=== PATIENT | male | born 1955 | race Caucasian/White ===

== ENCOUNTER 2022-06-25 08:16 | Outpatient (REF) | payer OTHER, SELFPAY ==
[2022-06-25 11:06] LABS: MANUAL DIFF FLAG NO
[2022-06-25 11:21] LABS: Basophils Absolute Auto 0.1 X10*3/uL (0.0-0.2); Basophils Percent Auto 0.8 % (0-2); Eosinophils Absolute Auto 0.1 X10*3/uL (0.0-0.4); Eosinophils Percent Auto 1.6 % (0-4); Hematocrit 44.3 % (42.0-52.0); Hemoglobin 14.1 g/dl (14.0-18.0); Imm Gran Abs Auto 0.02 X10*3/uL (0.00-0.03); Imm Gran Pct Auto 0.3 % (0.0-0.4); Lymphocytes Absolute Auto 1.2 X10*3/uL (1.2-4.9); Lymphocytes Percent Auto 19.5 % (20-40); Mean Corpuscular HGB Conc 31.8 g/dl (31.0-36.0); Mean Corpuscular Volume 78.4 fL (80.0-98.0); Mean Platelet Volume 10.2 fL (9.4-12.4); Monocytes Absolute Auto 0.4 X10*3/uL (0.1-1.2); Monocytes Percent Auto 6.8 % (2-11); Neutrophils Absolute Auto 4.4 x10*3/uL (2.0-8.3); Platelet Count 129 X10*3/uL (160-400); Red Blood Count 5.65 X10*6/uL (4.60-5.80); Red Cell Distribution Width 18.6 % (11.0-16.0); White Blood Count 6.2 X10*3/uL (4.8-10.8)
[2022-06-25 11:29] LABS: Estimated Average Glucose 269 mg/dL
[2022-06-25 11:46] LABS: Alanine Aminotransferase 31 U/L (0-40); Albumin Level 4.4 g/dL (3.5-5.0); Alkaline Phosphatase 96 U/L (39-117); Anion Gap 14 (12-20); Aspartate Amino Transferase 24 U/L (5-37); Bilirubin Total 0.4 mg/dL (0.0-1.0); Blood Urea Nitrogen 22 mg/dL (9-16); Calcium 9.5 mg/dL (8.4-10.2); Carbon Dioxide 25 mmol/L (22-29); Chloride 107 mmol/L (96-108); Cholesterol 137 mg/dL; Estimated Glomerular Filt Rate 44; Glucose Fasting 276 mg/dL (60-99); HDL Cholesterol 29 mg/dL; Iron 48 mcg/dL (45-160); LDL Cholesterol Calculated 65 mg/dl; Percent Iron Saturation 14 % (15-50); Potassium 4.8 mmol/L (3.3-5.1); Sodium 141 mmol/L (135-145); Total Iron Binding Capacity 347 mcg/dL (228-428); Total Protein 7.8 g/dL (6.5-8.0); Triglycerides 218 mg/dL; Unsaturated Iron Binding 299 ug/dL
[2022-06-25 12:09] LABS: Creatinine Urine 88.11 mg/dL
[2022-06-25 12:20] LABS: Microalbum/Creatinine Ratio Ur 1274.5 ug/mg cr
[2022-06-25 12:43] LABS: Folate 16.8 ng/mL (> or = 4.0); PSA,Total (Free>4and<10) 0.58 ng/mL (0.00-4.00); Vitamin B12 906 pg/mL (200-900)
== END 2022-06-25 08:17 | disposition home or self-care (01) ==
LOC: HO.HMGCLDS 08:16
PROVIDERS: PCP Internal Medicine; Visit Provider Internal Medicine
DX: R01.1 Cardiac murmur, unspecified (principal); I10 Essential (primary) hypertension; E78.5 Hyperlipidemia, unspecified; E11.9 Type 2 diabetes mellitus without complications; Z12.5 Encounter for screening for malignant neoplasm of prostate
CPT/HCPCS: 36415; 80053; 80061; 82043; 82607; 82746; 83036; 83540; 84153; 85025

== ENCOUNTER 2022-08-31 09:52 | Outpatient (REF) | payer OTHER, SELFPAY ==
--- NOTE | ~2022-08-31 | US_ITS ---
EXAMINATION: US RETROPERITONEAL LIMITED (RENAL ONLY) CLINICAL INFORMATION: Chronic kidney disease, stage 3 unspecified. COMPARISON: None available. TECHNIQUE: Real-time imaging of the kidneys. FINDINGS: RIGHT KIDNEY: 11.6 x 5.9 x 5.8 cm (SAG x AP x TRV). The kidney is normal in size, contour, and echogenicity. Renal cortical thickness is normal. No calculi or focal parenchymal lesions. No hydronephrosis. LEFT KIDNEY: 12.2 x 5.9 x 6.6 cm (SAG x AP x TRV). The kidney is normal in size, contour, and echogenicity. Renal cortical thickness is normal. No calculi or focal parenchymal lesions. No hydronephrosis. INCIDENTAL FINDING: The hepatic contour is mildly scalloped. Within the right hepatic lobe, a 5.5 x 4 mm hypoechoic, circumscribed mass is seen, without associated color Doppler flow. There is splenomegaly, with a longitudinal span of 16.3 cm. Splenic echotexture is somewhat heterogeneous. Calcified splenic granulomas are questioned. US/US renal BI IMPRESSION: 1. Unremarkable ultrasound appearance of the bilateral kidneys. 2. There is a scalloped contour of the liver, which can be associated with cirrhosis. This requires clinical correlation. 3. A 5 mm hyperechoic, circumscribed mass is seen within the right hepatic lobe, with ultrasound appearance characteristic of benign hemangioma. This is of doubtful clinical significance. If of clinical concern (i.e., history of hepatocellular disease or known malignancy), this can be further evaluated with dynamic CT or MRI. 4. There is splenomegaly.
== END 2022-08-31 09:53 | disposition home or self-care (01) ==
LOC: HO.HMGCX 09:52
PROVIDERS: PCP Internal Medicine; Visit Provider Internal Medicine
DX: N18.30 Chronic kidney disease, stage 3 unspecified (principal)
CPT/HCPCS: 76775

== ENCOUNTER 2022-11-20 10:45 | Outpatient (AMB) | payer OTHER, SELFPAY ==
--- NOTE | 2022-11-20 10:49 | MHC.OFFVIS ---
Intake Vital Signs 11/20/22 10:51 Height 5 ft 11 in Weight 204 lb 12.951 oz BMI 28.6 BP 132/68 Blood Pressure Location Rt brachial Position Sitting Pulse 86 Pulse Source Pulse Oximeter Intake Visit Reasons: Dm2 Intake Note: New patient present today for Diabetes Mellitus. Previously followed by PCP. Last Diabetic Eye exam: last year Last Podiatry Visit: Does not see a Milk Collector Random Glucose: 412 mg/dl 10:57 AM, 416 mg 12:09 PM, 357mg/dL 12:45pm HgA1C: 10.7% Foreign Exchange Student Coordinator Required: No Accompanied by: Self / Same As Patient Allergies No Known Allergies Allergy (Verified 11/20/22 10:52) Medication List - Last Reconciled 11/20/22 by Shukri Cunha MD amlodipine 10 mg PO DAILY blood sugar diagnostic ([employer] Verio test strips) Test blood sugar twice a day empagliflozin (Jardiance) 25 mg PO DAILY folic acid 1 mg PO DAILY glipizide 10 mg (2 x 5 mg) PO BID lisinopril 40 mg PO DAILY simvastatin 20 mg PO BEDTIME HPI HPI Comments History of Present Illness Details 66 YO M who is seen in consultation for T2DM at the request of PCP. Initially diagnosed with T2DM in 5 yrs . Never saw endo Was initially started on treatment with metformin .Couldn't tolerate because of nausea . Took Rybellus but couldn't afford Current regimen Jardiance 25 mg QD Glipizide 10 md QD. Unfortunately, patient did not bring glucometer or log book to visit Most recent A1C 10.7 , [down] from prior [] on []. Family history of T2DM in mother and siblings have Type 2 DM . Has eyes checked yearly, last eye exam last yr . needs to make appt , denies retinopathy. Denies neuropathy, in past sees podiatry. Has nephropathy, on MARTHA/ARB. UAC [] as measured on []. Has HLD, on statin. Denies CAD. Not Had diabetes education. PFSH Surgical History History of surgery History of surgery on arm Family History Sister Lymphoma Father Heart attack, Onset Age: 62 Mother DM2 (diabetes mellitus, type 2) Social History Household Members Other:: , 5 children, 11 greatchildren, retired Housing: House Patient Tobacco Use Status: Former Tobacco user Quit Date: quit 5-7 years ago e-Cigarette/Vaping Use: Never Used Second Hand Smoke Exposure: No service: Yes Current occupational status: retired Cognitive needs: No Hearing needs: No Vision needs: No Physical Exam Vital Signs: Last Vital Signs Pulse 86 11/20/22 10:51 BP 132/68 11/20/22 10:51 BMI result Body Mass Index 28.6 Absence of Cushingoid features. Absence of acromegalic features. Neck exam reveals nl size thyroid about 15 gms. No thyroid nodules palpable. No carotid bruits present. Lungs CTA. Heart S1 S2, Reg R/R. No M/R/ G. Skin exam reveals absence of vitiligo or acanthosis nigricans. Abdominal exam reveals Soft NT/ND with NA BS. No organomegaly present. Neck Other: . Extrem Other: Visual exam of foot performed. No ulcerations or open lesions. No onchomycosis, no callouses.Pulses 2 + distally Sensation intact to monofilament exam. Vibratory sensation sensed is decreased with 128 Hz tuning fork Office Meds Humalog U-100 Insulin Performing Provider: Shukri Cunha MD Administered by: Rigo Cerna RN on 11/20/22 11:08 Dose Route Admin Location Lot Number Expiration Date [facility] [employer] Registered Nurse 10 unit subcut [id number] 03/12/24 8332-2849-08 [employer] Comments: patient consented for insulin administration. 10 units of humalog given per Dr. Cunha's order due to blood sugar reading of 412. Patient tolerated well and was given water. Results AMB Hemoglobin A1c AMB Hemoglobin A1c 10.7 % Last Edit by NANCY Farooq on 11/20/22 11:06 Results Reviewed Results Reviewed: 11/20/22 10:57 Glucose, Whole Blood Routine Laboratory Last Values Glucose (Clinic) 412 mg/dL (60-115) H* 11/20/22 10:57 Hgb A1c (Clinic) 10.7 % (4.0-6.0) H 11/20/22 11:03 Assessment & Plan Assessment & Plan (1) DM type 2 (diabetes mellitus, type 2): Comment: poorly controlled, pt refuses Metformin, Trulicity and Insulin Code(s): E11.9 - Type 2 diabetes mellitus without complications Plan: This 66-year-old white male with a history of type 2 diabetes being treated with Jardiance and glipizide with poor glycemic control and known microvascular complications namely CKD stage 3. The plan is to have the patient check his point cares pre and post meals and bring the glucometer with him to follow-up visit. Would ideally like to prescribe a Sensor but patient is returns will not cover without initiation of insulin Will schedule appointment with extension educator and director retail brand development. Will talk to patient about going on basal insulin along with G LP 1 agonist. However, patient is not willing at this point to accept any the previous medications but will think about it. Went over correlation of poor glycemic control to development and progression of complications His point care today was >400 and he received 10 units of Humalog insulin Orders: Orders AMB Insulin Lispro Injection Practice Supplied Today E11.9 - Type 2 diabetes mellitus without complications AMB Hemoglobin A1c Today E11.9 - Type 2 diabetes mellitus without complications Referrals Diabetes Education Referral E11.9 - Type 2 diabetes mellitus without complications Nutrition/Dietitian Referral E11.9 - Type 2 diabetes mellitus without complications Coding Level of Care Code New Pt Level 5 (15923) Diagnoses DM type 2 (diabetes mellitus, type 2) E11.9 Time Spent (min) 60 Comment A total of 60 minutes was spent reviewing chart, seeing patient and dictating
[2022-11-20 10:51] VITALS: BP 132/68; PULSE 86; BMI 28.6
[2022-11-20 11:01] LABS: Glucose, Whole Blood 412 mg/dL (60-115)
[2022-11-23 09:03] LABS: Glucose, Whole Blood 416 mg/dL (60-115)
[2022-11-23 09:07] LABS: Glucose, Whole Blood 357 mg/dL (60-115)
== END 2022-11-20 11:44 | disposition home or self-care (01) ==
PROVIDERS: PCP Internal Medicine; Visit Provider Internal Medicine Endocrinology, Diabetes & Metabolism
DX: E11.9 Type 2 diabetes mellitus without complications (principal)
CPT/HCPCS: 99205

== ENCOUNTER → 2022-11-20 10:45 | Outpatient (BNVA) | payer OTHER, SELFPAY | PROVIDERS: Visit Provider Internal Medicine Endocrinology, Diabetes & Metabolism | DX: E11.21 Type 2 diabetes mellitus with diabetic nephropathy (principal); E11.22 Type 2 diabetes mellitus with diabetic chronic kidney disease; N18.30 Chronic kidney disease, stage 3 unspecified; E78.5 Hyperlipidemia, unspecified; Z83.3 Family history of diabetes mellitus; Z79.84 Long term (current) use of oral hypoglycemic drugs; Z79.85 Long-term (current) use of injectable non-insulin antidiabetic drugs; Z79.899 Other long term (current) drug therapy | CPT/HCPCS: 82947; 83036; 96372; 99202; J1815 ==

== ENCOUNTER 2023-02-12 12:32 | Outpatient (AMB) | payer OTHER, SELFPAY ==
[2023-02-12 12:41] VITALS: BP 120/78; PULSE 84; O2SAT 97; BMI 28.4
--- NOTE | 2023-02-12 12:41 | MHC.PC.OV ---
Vital Signs 02/12/23 12:41 Height 5 ft 11 in Weight 204 lb BMI 28.4 BP 120/78 Blood Pressure Location Lt brachial Position Sitting Pulse 84 Pulse Source Pulse Oximeter Pulse Oximetry (%) 97 Oxygen Delivery Method Room Air Intake Visit Reasons: 4 month follow up DM Intake Note: Pt is here today for 4 months follow up visit on DM. Allergies No Known Allergies Allergy (Verified 02/12/23 12:44) Medication List - Last Reconciled 02/12/23 by Lyn Ness MD amlodipine 10 mg PO DAILY blood sugar diagnostic ([employer] Verio test strips) Test blood sugar twice a day empagliflozin (Jardiance) 25 mg PO DAILY folic acid 1 mg PO DAILY glipizide 10 mg (2 x 5 mg) PO BID lisinopril 40 mg PO DAILY simvastatin 20 mg PO BEDTIME Tobacco use date assessed: 02/12/23 Dental Screening Dental Screen Date: 02/12/23 Did you have a dental visit in the last 12 months?: No Did you have a dental problem in the last 6 months where you did not have access to dental care?: No Was dental information given to patient?: Patient declined HPI 4 month follow up DM HPI Details Patient presents for the follow-up of hypertension hyperlipidemia type 2 diabetes. He reports fluctuating fasting blood glucose between 130 to over 200. Patient has not been compliant with ADA diet. Patient with pst specialist who recommended insulin but patient declined. [facility] Surgical History History of surgery on arm History of surgery Family History Sister Lymphoma Father Heart attack, Onset Age: 62 Mother DM2 (diabetes mellitus, type 2) Social History Household Members Other:: , 5 children, 11 greatchildren, retired Housing: House Patient Tobacco Use Status: Former Tobacco user Quit Date: quit 5-7 years ago e-Cigarette/Vaping Use: Never Used Second Hand Smoke Exposure: No service: Yes Current occupational status: retired Cognitive needs: No Hearing needs: No Vision needs: No Questionnaire Thrive Questionnaire Date Thrive assessed: 06/25/22 JEREMIAH-7 AMB Questionnaire JEREMIAH-7 Date JEREMIAH - 7 assessed: 06/25/22 Source: Developed by Drs. Shukri Burnett, Nayely Sdaler, Nikhil Vivas and colleagues, with an educational luis from [employer]. Review of Systems Const All systems reviewed & are unremarkable except as noted in HPI and below Reports no additional complaints Eyes Reports no additional complaints ENT Reports no additional complaints Card Reports no additional complaints Resp Reports no additional complaints GI Reports no additional complaints Reports no additional complaints Physical exam (Primary Care) Vital Signs: Last Vital Signs Pulse 84 02/12/23 12:41 BP 140/78 H 02/12/23 12:41 Pulse Ox 97 02/12/23 12:41 Oxygen Delivery Method Room Air 02/12/23 12:41 BMI result Body Mass Index 28.4 Tobacco/Smoking Status: Tobacco use Status Tobacco use date assessed 02/12/23 02/12/23 12:45 Patient Tobacco Use Status Former Tobacco user 02/12/23 12:42 e-Cigarette/Vaping Use Never Used 02/12/23 12:42 Thrive Assessment: Date of Thrive Assessment Date Thrive assessed 06/25/22 02/12/23 12:42 Const General: no acute distress HENMT Head: Yes normal to inspection Ears: hearing grossly normal bilaterally Eyes General: appearance normal, both eyes and all related structures Neck Neck: Yes supple Resp Effort & Inspection: normal respiratory effort Auscultation: clear to auscultation bilaterally Cardio Rhythm: regular rhythm Heart sounds: S1 normal heart sound present and S2 normal heart sound present GI Inspection: Yes normal to inspection Palpation (GI): Soft to palpation Auscultation: normal bowel sounds Extrem Other: Diabetic foot exam: skin is intact monofilament and vibration sensation intact bilaterally General: Yes no clubbing, cyanosis or edema Assessment and Plan Assessment & Plan (1) Microalbuminuria: Code(s): R80.9 - Proteinuria, unspecified Plan: Continue lisinopril and Jardiance return for fasting blood work and urine microalbumin (2) CKD (chronic kidney disease) stage 3, GFR 30-59 ml/min: Code(s): N18.30 - Chronic kidney disease, stage 3 unspecified Plan: Avoid NSAIDs monitor renal function continue Jardiance (3) HTN (hypertension): Code(s): I10 - Essential (primary) hypertension Plan: Continue current medications (4) Hyperlipidemia: Code(s): E78.5 - Hyperlipidemia, unspecified Plan: Continue statin (5) DM type 2 (diabetes mellitus, type 2): Comment: poorly controlled, pt refuses Metformin, Trulicity and Insulin Code(s): E11.9 - Type 2 diabetes mellitus without complications Plan: ADA diet regular physical activity discussed with the patient patient he will return for fasting labs next week including A1c (6) Hx of colonoscopy: Comment: at [facility] 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 Panel Today E11.9 - Type 2 diabetes mellitus without complications, E78.5 - Hyperlipidemia, unspecified, I10 - Essential (primary) hypertension, N18.30 - Chronic kidney disease, stage 3 unspecified, R80.9 - Proteinuria, unspecified Complete Blood Count Auto Diff Today E11.9 - Type 2 diabetes mellitus without complications, E78.5 - Hyperlipidemia, unspecified, I10 - Essential (primary) hypertension, N18.30 - Chronic kidney disease, stage 3 unspecified, R80.9 - Proteinuria, unspecified Lipid Panel Today E78.5 - Hyperlipidemia, unspecified Medications: New ammonium lactate 12% 1 appl topical DAILY PRN 385 grams 3RF dry skin Coding Level of Care Code Est Pt Level 4 (36617) Diagnoses Microalbuminuria R80.9 CKD (chronic kidney disease) stage 3, GFR 30-59 ml/min N18.30 HTN (hypertension) I10 Hyperlipidemia E78.5 DM type 2 (diabetes mellitus, type 2) E11.9 Hx of colonoscopy Z98.890 Alcoholic cirrhosis of liver without ascites K70.30
== END 2023-02-12 13:33 | disposition home or self-care (01) ==
PROVIDERS: PCP Internal Medicine; Visit Provider Internal Medicine
DX: R80.9 Proteinuria, unspecified (principal); E11.22 Type 2 diabetes mellitus with diabetic chronic kidney disease; N18.30 Chronic kidney disease, stage 3 unspecified; K70.30 Alcoholic cirrhosis of liver without ascites; I10 Essential (primary) hypertension; E78.5 Hyperlipidemia, unspecified; Z98.890 Other specified postprocedural states
CPT/HCPCS: 99214

== ENCOUNTER 2023-10-04 09:28 | Outpatient (REF) | payer OTHER, SELFPAY ==
[2023-10-04 12:09] LABS: MANUAL DIFF FLAG NO
[2023-10-04 12:11] LABS: Basophils Percent Auto 0.7 % (0-2); Eosinophils Absolute Auto 0.1 X10*3/uL (0.0-0.4); Eosinophils Percent Auto 2.7 % (0-4); Hematocrit 44.2 % (42.0-52.0); Hemoglobin 15.4 g/dl (14.0-18.0); Imm Gran Abs Auto 0.02 X10*3/uL (0.00-0.03); Imm Gran Pct Auto 0.4 % (0.0-0.4); Lymphocytes Percent Auto 22.2 % (20-40); Mean Corpuscular HGB Conc 34.8 g/dl (31.0-36.0); Mean Corpuscular Hemoglobin 31.6 pg (27.0-33.0); Mean Corpuscular Volume 90.6 fL (80.0-98.0); Mean Platelet Volume 9.8 fL (9.4-12.4); Monocytes Absolute Auto 0.4 X10*3/uL (0.1-1.2); Monocytes Percent Auto 8.9 % (2-11); Neutrophils Absolute Auto 2.9 x10*3/uL (2.0-8.3); Neutrophils Percent Auto 65.1 % (45-73); Platelet Count 102 X10*3/uL (160-400); Red Blood Count 4.88 X10*6/uL (4.60-5.80); Red Cell Distribution Width 13.9 % (11.0-16.0); White Blood Count 4.5 X10*3/uL (4.8-10.8)
[2023-10-04 12:28] LABS: Estimated Average Glucose 163 mg/dL; Hemoglobin A1c % 7.3 % (<6.0)
[2023-10-04 12:47] LABS: Alanine Aminotransferase 52 U/L (0-40); Alkaline Phosphatase 96 U/L (39-117); Anion Gap 19 (12-20); Aspartate Amino Transferase 39 U/L (5-37); Bilirubin Total 0.5 mg/dL (0.0-1.0); Blood Urea Nitrogen 13 mg/dL (9-16); Calcium 8.9 mg/dL (8.4-10.2); Carbon Dioxide 22 mmol/L (22-29); Chloride 107 mmol/L (96-108); Cholesterol 170 mg/dL (<200); Estimated Glomerular Filt Rate 54; Glucose Fasting 191 mg/dL (60-99); HDL Cholesterol 38 mg/dL (>40); Sodium 143 mmol/L (135-145); Total Protein 7.6 g/dL (6.5-8.0); Triglycerides 467 mg/dL (<150)
[2023-10-04 13:26] LABS: Creatinine Urine 134.81 mg/dL; Microalbum/Creatinine Ratio Ur 1483.5 ug/mg cr (<30); Microalbumin Urine > 2000.0 mg/L
[2023-10-06 12:59] LABS: Alpha Fetoprotein 4.8 ng/mL (<6.1)
== END 2023-10-04 09:29 | disposition home or self-care (01) ==
LOC: HO.HMGCLDS 09:28
PROVIDERS: PCP Internal Medicine; Visit Provider Internal Medicine
DX: I12.9 Hypertensive chronic kidney disease with stage 1 through stage 4 chronic kidney disease, or unspecified chronic kidney disease (principal); E11.22 Type 2 diabetes mellitus with diabetic chronic kidney disease; N18.30 Chronic kidney disease, stage 3 unspecified
CPT/HCPCS: 36415; 80053; 80061; 82043; 82105; 82570; 83036; 85025

== ENCOUNTER 2023-10-07 13:59 | Outpatient (AMB) | payer OTHER, SELFPAY ==
[2023-10-07 14:12] VITALS: BP 136/88; PULSE 113; O2SAT 97; BMI 30.6
--- NOTE | 2023-10-07 14:12 | MHC.PC.OV ---
Vital Signs 10/07/23 14:12 Height 5 ft 11 in Weight 219 lb 4 oz BMI 30.6 BP 136/88 Blood Pressure Location Rt brachial Position Sitting Pulse 113 H Pulse Source Pulse Oximeter Pulse Oximetry (%) 97 Oxygen Delivery Method Room Air Intake Visit Reasons: DM followup Allergies No Known Allergies Allergy (Verified 10/07/23 14:12) Medication List - Last Reconciled 10/07/23 by Lyn Ness MD amlodipine 10 mg PO DAILY ammonium lactate 12% 1 appl topical DAILY PRN bisoprolol-hydrochlorothiazide 5-6.25 mg 1 tab PO DAILY blood sugar diagnostic ([employer] Verio test strips) Test blood sugar twice a day empagliflozin (Jardiance) 25 mg PO DAILY folic acid 1 mg PO DAILY glipizide 10 mg (2 x 5 mg) PO BID lisinopril 40 mg PO DAILY simvastatin 20 mg PO BEDTIME Tobacco use date assessed: 10/07/23 Fall risk assessment: No Falls in past year Last assessed Fall Risk: 10/07/23 Dental Screening Dental Screen Date: 10/07/23 Did you have a dental visit in the last 12 months?: No Did you have a dental problem in the last 6 months where you did not have access to dental care?: No Was dental information given to patient?: No HPI DM followup HPI Details Follow-up of hypertension hyperlipidemia type 2 diabetes. Patient has been monitoring his fasting blood glucose with a readings between 120-160. [facility] Surgical History History of surgery on arm History of surgery Family History Sister Lymphoma Father Heart attack, Onset Age: 62 Mother DM2 (diabetes mellitus, type 2) Social History Household Members Other:: , 5 children, 11 greatchildren, retired Housing: House Patient Tobacco Use Status: Former Tobacco user e-Cigarette/Vaping Use: Never Used Second Hand Smoke Exposure: No service: Yes Current occupational status: retired Cognitive needs: No Hearing needs: No Vision needs: No Questionnaire Thrive Questionnaire Date Thrive assessed: 06/25/22 AUDIT C Alcohol Use Questionnaire (AUDIT-C) 1. How often do you have a drink containing alcohol?: Never 3. How often do you have six or more drinks on one occasion?: Never Total Score: 0 Score Reviewed/Action Taken: Yes JEREMIAH-7 AMB Questionnaire JEREMIAH-7 Date JEREMIAH - 7 assessed: 06/25/22 Source: Developed by Drs. Shukri Burnett, Nayely Sadler, Nikhil Vivas and colleagues, with an educational luis from [employer]. Review of Systems Const All systems reviewed & are unremarkable except as noted in HPI and below Eyes Reports no additional complaints ENT Reports no additional complaints Card Reports no additional complaints Resp Reports no additional complaints GI Reports no additional complaints Reports no additional complaints Physical exam (Primary Care) Vital Signs: Last Vital Signs Pulse 113 H 10/07/23 14:12 Pulse Ox 97 10/07/23 14:12 Oxygen Delivery Method Room Air 10/07/23 14:12 BMI result Body Mass Index 30.6 Tobacco/Smoking Status: Tobacco use Status Tobacco use date assessed 10/07/23 10/07/23 14:13 Patient Tobacco Use Status Former Tobacco user 10/07/23 14:13 e-Cigarette/Vaping Use Never Used 10/07/23 14:13 Thrive Assessment: Date of Thrive Assessment Date Thrive assessed 06/25/22 10/07/23 14:13 Const General: no acute distress HENMT Head: Yes normal to inspection Throat: Yes posterior oropharynx normal Neck Neck: Yes no lymphadenopathy and Yes supple Resp Effort & Inspection: normal respiratory effort Auscultation: clear to auscultation bilaterally Cardio Rhythm: regular rhythm Heart sounds: S1 normal heart sound present and S2 normal heart sound present GI Inspection: Yes normal to inspection Palpation (GI): Soft to palpation Percussion: Yes normal to percussion Auscultation: normal bowel sounds Assessment and Plan Assessment & Plan (1) Alcoholic cirrhosis of liver without ascites: Comment: dxd 10/2021 at [facility], declined GI follow-up Code(s): K70.30 - Alcoholic cirrhosis of liver without ascites Plan: Patient denies alcohol intake for over a year (2) CKD (chronic kidney disease) stage 3, GFR 30-59 ml/min: Comment: With microalbuminuria Code(s): N18.30 - Chronic kidney disease, stage 3 unspecified Plan: Monitor renal function and avoid nephrotoxins (3) HTN (hypertension): Code(s): I10 - Essential (primary) hypertension Plan: Add bisoprolol 5/hydrochlorothiazide 6.25 to lisinopril and amlodipine. Patient will monitor blood pressure at home follow-up in 3 months with a fasting labs before (4) Hyperlipidemia: Code(s): E78.5 - Hyperlipidemia, unspecified Plan: Restart simvastatin (5) DM type 2 (diabetes mellitus, type 2): Comment: poorly controlled, pt refuses Metformin, Trulicity and Insulin Code(s): E11.9 - Type 2 diabetes mellitus without complications Plan: A1c is 7.4, continue Jardiance and glipizide ADA diet increase physical activity discussed with the patient. Orders: Orders Comprehensive [place]. Panel Fast 3 Months E11.9 - Type 2 diabetes mellitus without complications, E78.5 - Hyperlipidemia, unspecified, N18.30 - Chronic kidney disease, stage 3 unspecified, R80.9 - Proteinuria, unspecified Lipid Panel 3 Months E11.9 - Type 2 diabetes mellitus without complications, E78.5 - Hyperlipidemia, unspecified, N18.30 - Chronic kidney disease, stage 3 unspecified, R80.9 - Proteinuria, unspecified Complete Blood Count Auto Diff 3 Months E11.9 - Type 2 diabetes mellitus without complications, E78.5 - Hyperlipidemia, unspecified, N18.30 - Chronic kidney disease, stage 3 unspecified, R80.9 - Proteinuria, unspecified Microalbumin, Random (w Creat) 3 Months E11.9 - Type 2 diabetes mellitus without complications, E78.5 - Hyperlipidemia, unspecified, N18.30 - Chronic kidney disease, stage 3 unspecified, R80.9 - Proteinuria, unspecified Hemoglobin A1c 3 Months E11.9 - Type 2 diabetes mellitus without complications, E78.5 - Hyperlipidemia, unspecified, N18.30 - Chronic kidney disease, stage 3 unspecified, R80.9 - Proteinuria, unspecified Medications: New bisoprolol-hydrochlorothiazide 5-6.25 mg 1 tab PO DAILY 90 tabs 0RF Refilled empagliflozin (Jardiance) 25 mg PO DAILY 90 tabs 1RF glipizide 10 mg (2 x 5 mg) PO BID 360 tabs 1RF lisinopril 40 mg PO DAILY 90 tabs 1RF Coding Level of Care Code Est Pt Level 4 (73661) Diagnoses Alcoholic cirrhosis of liver without ascites K70.30 CKD (chronic kidney disease) stage 3, GFR 30-59 ml/min N18.30 HTN (hypertension) I10 Hyperlipidemia E78.5 DM type 2 (diabetes mellitus, type 2) E11.9
== END 2023-10-07 14:50 | disposition home or self-care (01) ==
LOC: HO.HMGC 13:59
PROVIDERS: PCP Internal Medicine; Visit Provider Internal Medicine
DX: E11.22 Type 2 diabetes mellitus with diabetic chronic kidney disease (principal); K70.30 Alcoholic cirrhosis of liver without ascites; N18.30 Chronic kidney disease, stage 3 unspecified; I12.9 Hypertensive chronic kidney disease with stage 1 through stage 4 chronic kidney disease, or unspecified chronic kidney disease; E78.5 Hyperlipidemia, unspecified
CPT/HCPCS: 99214

== ENCOUNTER → 2024-05-19 11:53 | Outpatient (BNVA) | payer MEDICARE, SELFPAY | PROVIDERS: PCP Internal Medicine; Visit Provider Internal Medicine | DX: Z00.00 Encounter for general adult medical examination without abnormal findings (principal); I12.9 Hypertensive chronic kidney disease with stage 1 through stage 4 chronic kidney disease, or unspecified chronic kidney disease; E11.22 Type 2 diabetes mellitus with diabetic chronic kidney disease; N18.30 Chronic kidney disease, stage 3 unspecified; R80.9 Proteinuria, unspecified; K70.30 Alcoholic cirrhosis of liver without ascites; Z98.890 Other specified postprocedural states | CPT/HCPCS: 96127; 99397 ==

== ENCOUNTER 2024-08-30 08:54 | Outpatient (AMB) | payer MEDICARE, SELFPAY ==
--- NOTE | 2024-08-30 09:05 | AM.OFFWIN_ITS ---
Intake Vital Signs 08/30/24 09:10 BP 120/78 Blood Pressure Location Lt brachial Position Sitting Pulse 77 Pulse Source Pulse Oximeter Pulse Oximetry (%) 93 Oxygen Delivery Method Room Air Intake Visit Reasons: EP Diff breathing, stomach feeling bloated Patient Tobacco Use Status: Former Tobacco user Allergies bisoprolol Adverse Reaction (Intermediate, Verified 08/30/24 09:07) Diarrhea Do you need a note to return to daycare/school/sports/work: No HPI HPI Comments History of Present Illness Details History of Present Illness - The patient is a 68-year-old male with a past medical history of type 2 diabetes, hypertension, hyperlipidemia, CKD stage 3, alcohol use disorder who was recently hospitalized at [facility] with melanotic stools and discharged after transfusion. He was scheduled for an outpatient EGD and colonoscopy and when he arrived for that appt, he was found to be in AFib with RVR with rates into the 120s, an CHARLENE, a type 2 NSTEMI, moderate MR, hyponatremia along with uncontrolled blood sugars. He was admitted back to [facility], placed on metoprolol, sugars and sodium were managed and he was discharged 3 days ago. He tells me he has not eaten anything since he was there because he feels like his abdomen is so full, he is very short of breath and his notes he is very pale. He tells me he was taking his metoprolol 25 mg t.i.d. along with his other medications. Notably, he is not on a blood thinner. He has had no further episodes of melanotic stools, denies any vomiting of blood, chest pain, dizziness, abdominal pain which radiates to his back, any arm pain or shoulder pain or neck pain or episodes of sweating. Patient was also prescribed a course of Augmentin which he states he is taking for a lesion on his right upper back. He is here with his today. Physical Exam General: Cooperative, tired appearing, comfortable, no acute distress and well developed Orientation: Patient oriented x3 Limitations: No limitations Head: Normal to inspection Ears: Hearing grossly normal bilaterally Nose: Normal External nose present Face and sinus: Normal facial exam Eyes: Conjunctival pallor, both eyes and all related structures otherwise normal appearing Neck: Normal visual inspection and Yes full ROM Respiratory: Normal respiratory effort and able to speak in complete sentences. Clear to auscultation bilaterally Cardiovascular: Irregular rate and rhythm. GI: obese, + fluid wave, + Iverson's, tense abdomen. Skin: pallor, upper right back has a raised 1cm lesion which is bloody and black Neuro: Patient oriented x3 Extremities: Normal to inspection [facility] Surgical History History of surgery on arm History of surgery Family History Sister Lymphoma Father Heart attack, Onset Age: 62 Mother DM2 (diabetes mellitus, type 2) Social History Household Members Other:: , 5 children, 11 greatchildren, retired Housing: House Patient Tobacco Use Status: Former Tobacco user e-Cigarette/Vaping Use: Never Used Second Hand Smoke Exposure: No service: Yes Current occupational status: retired Cognitive needs: No Hearing needs: No Vision needs: No Review of Systems Const All systems reviewed & are unremarkable except as noted in HPI and below Physical Exam Vital Signs: Last Vital Signs BP 120/78 08/30/24 09:10 Office Procedures EKG [id number], Complete Assessment & Plan Assessment & Plan (1) Atrial fibrillation with RVR: Code(s): I48.91 - Unspecified atrial fibrillation Plan: Pt with AFib with RVR with a rate of 116 on EKG, no acute changes noted however the computer picked up a ?nonspecific T-wave abnormality . Due to the presenting complaints and background, returning to the emergency room is recommended immediately for a comprehensive workup. This includes rate control measures for atrial fibrillation and potential fluid removal and blood products, if indicated. Reevaluation of hemoglobin levels and possible adjustment to metoprolol are planned, contingent upon findings. Also, pt not on blood thinner with Chads 2 score of 3. He does have a follow up with his PCP on 09/11/24. Called [facility] ED with expect 9:30AM. Patient refused ambulance, his will drive him. I also called the patient's daughter, Deyanira, to advise as per request by the patient and his . Patient was informed and verbally consented to the use of an ambient scribe for clinic note documentation during this visit. Coding Level of Care Code Est Pt Level 5 (65757) Diagnoses Atrial fibrillation with RVR I48.91 CPT Codes EKG - CPT: 88583-[id number], Complete ([id number])
[2024-08-30 09:10] VITALS: BP 120/78; PULSE 77; O2SAT 93
--- OUTSIDE RECORDS SUMMARY | 2024-08-30 10:10 | XMS_ITS | Patient Health Record ---
Author Organization [facility] Address [address] [place] [address] Care Team Providers Care Learning And Development Administrator Name Role Phone Little RANDOLPH, Radha Blackburn Primary Care Provider James Marcum Unavailable [phone] Allergies No Known Allergies Reason For Referral No Information Medications Medication SIG (Take, Route, Fr equency, Duration) Notes Start Date End Date Status Allopurinol Active Simvastatin Active Lisinopril Active glipiZIDE Active Furosemide Active amLODIPine Besylate Active Social History Tobacco Use: Social History Observation Description Date Details (start date - stop date) Never Smoker NA - NA Tobacco Use/Smoking Question Answer Notes Are you a: nonsmoker Additional Findings: Tobacco Non-User Ex-cigaret te smoker Problems Problem Type SNOMED Code ICD Code Onset Dates Problem Status W/U Status Risk Notes Problem Acquired hallux valgus (91114559) Hallux valgus (acquired), left foot (M20.12) Active confirmed Problem Acquired hallux rigidus (1839733) Hallux rigidus, right foot (M20.21) Active confirmed Plan Of Treatment Pending Test Test Name Order Date X ray : Foot, left 3V 08/21/2020 X ray : Foot, right 3V 08/21/2020 Insurance Providers Payer Name Payer Address Payer Phone Subscriber Number Group Number Insured Name Patient Relationship to Insured Coverage Start Date Coverage End Date [facility] [id number] [place] [phone] [id number] Trev Miranda Self - patient is the insured Medical (General) History Medical History History ICD Code Arthritis Diabetic Gout High blood pressure Numbness Surgical History Surgery Date(Month/Year) knee surgery 09/16/79 knee surgery 09/15/89
--- OUTSIDE RECORDS SUMMARY | 2024-08-30 10:10 | XMS_ITS | Clinical Summary ---
Author Organization [employer] [facility] Address [address] [place] [address] Care Team Providers Care Business Operations Director Name Role Phone Lyn Ness MD Primary Care Provider [phone] Surgical History Surgery Date Site/Laterality Comments KNEE SURGERY PROCEDURE: HISTORICAL KNEE SURGERY; COMMENT: lef in 1979 r in 1989 torn cartiladge Medical History Medical History Date Comments LFT elevation 06/21/2014 DX:LFT elevation Gout 06/21/2014 DX:Gout Mitral regurgitation 06/04/2014 DX:Mitral r egurgitation CKD (chronic kidney disease) stage 3, GFR 30-59 ml/min ([facility]/HCC V24, [facility]/HCC V28) 11/03/2018 DX:CKD (chronic kidney disea se) stage 3, GFR 30-59 ml/min ([facility]) Microalbuminuria 11/03/2018 DX:Microalbumin uria Type 2 diabetes mellitus wit h renal manifestations ([facility]/HCC V24, CMS/HCC V28) 02/01/2015 DX:Type 2 diabetes mellitus with renal manifestations (HCC) Alcohol abuse 10/01/2017 DX:Alcohol abuse Diastolic dysfunction with c hronic heart failure (CMS/HCC V24, CMS/HCC V28) 06/19/2016 DX:Diastolic dysfunction wit h chronic heart failure (HCC) Essential hypertension 06/24/2018 DX:Essent ial hypertension Hyperlipidemia 10/02/2014 DX:Hyperlipidemi a Osteoarthritis of knees, bilateral 06/04/2014 DX:Osteoarthritis of knees, bilateral DM (diabetes mellitus), type 2 with renal complications (CMS/HCC V24, CMS/HCC V28) 02/01/2015 DX:DM (diabetes mellitus), t ype 2 with renal complications ([facility]) GI bleed DX:GI bleed Symptomatic anemia DX:Symptomati c anemia Alcoholic cirrhosis of liver (CMS/HCC V24, CMS/HCC V28) DX:Alcoholic cirrhosis of li jaci (HCC) Portal hypertensive gastropa thy (CMS/HCC V24, CMS/HCC V28) 04/09/2022 DX:Portal hypertensive bg ropathy (HCC) COVID-19 virus infection DX:COVI D-19 virus infection Stage III chronic kidney dis ease (CMS/HCC V24, CMS/HCC V28) DX:Stage III chronic kidney disease (HCC) Weakness DX:Weakness Elevated LFTs DX:Elevated LFTs MRSA (methicillin resistant Staphylococcus aureus) DX:MRSA (methicillin resista nt Staphylococcus aureus); COMMENT: cellulitis Family History Medical History Relation Name Comments Heart attack Father dx with CAD in his 50s, Diabetes, Hypertension Other cancer Sister ? lymphoma Relation Name Status Comments Father (Age 62) of an [place] Mother (Age 80s) unknown c auses Sister Social History Tobacco Use Types Packs/Day Years Used Date Smoking Tobacco: Former Cigarettes Q uit: 04/12/2014 Smokeless Tobacco: Former Alcohol Use Standard Drinks/Week Comments Yes 0 (1 standard drink = 0.6 oz pur e alcohol) Sex and Gender Information Value Date Recorded Sex Assigned at Not on file Legal Sex Male 2:54 AM EST Gender Identity Not on file Sexual Orientation Not on file Obstetrics History Last Filed Vital Signs Vital Sign Reading Time Taken Comments Blood Pressure 166/80 05/14/2022 1:52 PM EST Pulse 93 04/15/2022 10:18 AM EST Temperature - - Respiratory Rate - - Oxygen Saturation - - Inhaled Oxygen Concentration - - Weight 93.4 kg (206 lb) 05/14/2022 1:52 PM EST Height 180.3 cm (5' 11 ) 05/14/2022 1:52 PM EST Body Mass Index 28.73 05/14/2022 1:52 PM EST Plan of Treatment Health Maintenance Due Date Last Done Comments Diabetes: Annual GFR (Glomer ular Filtration Rate) 1956 Diabetes: Annual Foot Exam 1966 Diabetes: Annual Retina Eye Exam 1966 Hepatitis A Vaccines (1 of 2 - Risk 2-dose series) 11/22/1975 Pneumococcal Vaccine: 50+ Ye ars (1 of 2 - PCV) 11/22/1975 Zoster Vaccines (1 of 2) 2006 Hepatitis B Vaccines (1 of 3 - Risk 3-dose series) 2016 RSV Immunization Adult Patie nts (1 - Risk 60-74 years 1-dose series) 2016 Abdominal Aortic Aneurysm (A AA) Screen 03/15/2022 Cholesterol Screening (Lipid Panel) 03/15/2022 Colorectal Cancer Screening: Colonoscopy 03/15/2022 Depression Screening 03/15/2022 Falls Risk Assessment 03/15/2022 Hepatitis C Screening 03/15/2022 Social Influencers of Health Screening 03/15/2022 Diabetes: Annual Urine Albumin-Creatinine Ratio (uACR) 03/28/2022 Diabetes: Blood Sugar Contro l Test (HGBA1C) 03/28/2022 Hypertension/CHF/CAD Annual BMP Blood Test 03/28/2022 COVID-19 Vaccine (1 - 2023-2 5 season) 2023 Influenza Vaccine (Season Ended) 2024 DTaP,Tdap,and Td Vaccines (2 - Td or Tdap) 03/21/2025 03/21/2015 HIB Vaccines Aged Out No longer eligi ble based on patient's age to complete this topic HPV Vaccines Aged Out No longer eligi ble based on patient's age to complete this topic IPV Vaccines Aged Out No longer eligi ble based on patient's age to complete this topic MMR Vaccines Aged Out No longer eligi ble based on patient's age to complete this topic Meningococcal ACWY Vaccine Aged Out N o longer eligible based on patient's age to complete this topic Meningococcal B Vaccine Aged Out No l onger eligible based on patient's age to complete this topic RSV Immunization Patients Un nathalia 20 months Aged Out No longer eligible b ased on patient's age to complete this topic Varicella Vaccines Aged Out No longer eligible based on patient's age to complete this topic Advance Directives Documents on File Type Date Recorded Patient Electric Deicer Inspector Expl anation Health Care Decision (hx) 07/13/2020 AD WOODS DIRECTIVE Health Care Decision (hx) 07/13/2020 AD WOODS DIRECTIVE Health Care Decision (hx) 07/13/2020 AD WOODS DIRECTIVE Health Care Decision (hx) 10/22/2015 AD WOODS DIRECTIVE Health Care Decision (hx) 10/22/2015 AD WOODS DIRECTIVE Health Care Decision (hx) 10/22/2015 AD WOODS DIRECTIVE Health Care Decision (hx) 10/22/2015 AD WOODS DIRECTIVE Care Teams Business Operations Director Relationship Specialty Start Date End Date Lyn Ness MD PCP - General 04/08/22
--- OUTSIDE RECORDS SUMMARY | 2024-08-30 10:10 | XMS_ITS | Continuity of Care Document ---
Author Organization [facility] ter Address [address] [place] [id number]- Care Team Providers Care Paving Contractor Name Role Phone Not on Staff, PCP Primary Care Physician Unavail able Encounter [facility] [place]): 08/23/24 - 08/27/[address] [address]- Discharge Disposition: A-D/C Home Attending Physician: Nayan RANDOLPH, [facility] Admitting Physician: Bradley Brady DO Referring Physician: Not on Staff, Referring MD Encounter Type: Disch IP Allergies, Adverse Reactions, Alerts Substance Criticality Severity Reaction Reaction Severity Status Indocin Active Immunizations Given and Recorded Vaccine Date Status Refusal Reason tetanus/diphtheria/pertussis, acel(Tdap) 03/21/15 Recorded Medications Accu-Chek Judy Glucose Meter See Instructions, # 1 each, Maintenance, check pocg 3 times a day before meals, 08/27/24 12:04:00 PMEDT, Supply, 180, cm, 08/27/24 7:59:00 EDT, Height, 97.5, kg, 08/25/24 17:33:00 EDT, Dry Weight Start Date: 08/27/24 Status: Ordered Quantity: 1.0 Unit: each Repeat number: 1 Alcohol Pads See Instructions, # 600 each, Refills 2, Tot. Refills 2, Maintenance, use as directed for Type 1 Diabetes Mellitus, 08/27/24 12:03:00 PM EDT, Supply, 180, cm, 08/27/24 7:59:00 EDT, Height, 97.5, kg, 08/25/24 17:33:00 EDT, Dry Weight Start Date: 08/27/24 Stop Date: 05/24/25 Status: Ordered Quantity: 600.0 Unit: each Repeat number: 3 amLODIPine 10 mg oral tablet 10 mg, 1, tablet, By Mouth, Daily, # 30 tablet, Refills 0, Maintenance, 09/14/18 12:32:51 PM EDT Start Date: 09/14/18 Status: Ordered Quantity: 30.0 Unit: tablet Repeat number: 1 amoxicillin-clavulanate 875 mg-125 mg oral tablet = 875 mg, By Mouth, 2 times a day, for 3 days, # 5 tablet, 0 Refills, Acute 08/30/24 11:58:00 AM EDT, 08/27/24 11:58:00 AM EDT, Tablet, [facility], Partial fill upon patient request if the prescription is for a schedule II opioid drug., 180, cm, 08/27/24 7:59:00 EDT, Height, 97.5, kg, 08/25/24 17:33:00 EDT, Dry Weight Start Date: 08/27/24 Stop Date: 08/30/24 Status: Ordered Quantity: 5.0 Unit: tablet Repeat number: 1 ferrous fumarate 325 mg oral tablet 1 tablet = 325 mg, By Mouth, Every Wednesday, Wednesday and Wednesday, # 39 tablet, 0 Refills, Maintenance, 07/30/24 12:52:00 PM EDT, Tablet[id number] Partial fill upon patient request if the prescription is for a schedule II opioid drug., 180, cm, 07/30/24 8:31:00 EDT, Height, 95, kg, 07/28/2522:18:00 EDT, Dry Weight Start Date: 07/30/24 Status: Ordered Quantity: 39.0 Unit: tablet Repeat number: 1 glipiZIDE 5 mg oral tablet 10 mg, 2, tablet, By Mouth, 2 times a day, # 30 tablet, Refills 0, Maintenance, 09/14/18 12:30:22 PM EDT Start Date: 09/14/18 Status: Ordered Quantity: 30.0 Unit: tablet Repeat number: 1 Glucose Test Strips See Instructions, # 200 each, Maintenance, check pocg 3 times a day before meals, 08/27/24 12:02:00 PM EDT, Supply, 180, cm, 08/27/24 7:59:00 EDT, Height, 97.5, kg, 08/25/24 17:33:00 EDT, Dry Weight Start Date: 08/27/24 Status: Ordered Quantity: 200.0 Unit: each Repeat number: 1 Golytely - oral powder for reconstitution 240 mL, By Mouth, Every 10 minutes, until 4 liters are consumed or the rectal effluent is clear, # 4,000 mL, 0 Refills, Maintenance, 08/27/24 4:58:00 PM EDT, REC Powder, [id number], Partial fill upon patient request if the prescription is for a schedule II opioid drug., 240 mL By Mouth Every10 minutes,Instr:until 4 liters are consumed or the rectal effluent is clear, 180, cm, 08/27/24 7:59:00 EDT, Height, 97.5, kg, 08/25/24 17:33:00 EDT, Dry Weight Start Date: 08/27/24 Status: Ordered Quantity: 4000.0 Unit: mL Repeat number: 1 insulin glargine 100 units/mL subcutaneous solution = 32 units, Subcutaneous Injection, Daily at bedtime, # 15 mL, 0 Refills, Maintenance, 08/27/24 11:58:00 AM EDT, Injection, [facility], Partial fill upon patient request if the prescription is for a schedule II opioid drug., 180, cm, 08/27/24 7:59:00 EDT, Height, 97.5, kg, 08/25/24 17:33:00 EDT, Dry Weight Start Date: 08/27/24 Status: Ordered Quantity: 15.0 Unit: mL Repeat number: 1 Lancets See Instructions, # 200 each, Maintenance, check pocg 3 times a day before meals, 08/27/24 12:03:00 PM EDT, Supply, 180, cm, 08/27/24 7:59:00 EDT, Height, 97.5, kg, 08/25/24 17:33:00 EDT, Dry Weight Start Date: 08/27/24 Status: Ordered Quantity: 200.0 Unit: each Repeat number: 1 metoprolol 25 mg oral tablet 25 mg, By Mouth, 3 times a day, # 270 tablet, Refills 0, Tot. Refills 0, Maintenance, 08/27/24 12:01:00 PM EDT, Route to Pharmacy Electronically, [facility], Partial fill upon patient request if the prescription is for a schedule II opioid drug., 180, cm, 08/27/24 7:59:00 EDT, Height, 97.5, kg, 08/25/24 17:33:00 EDT, Dry Weight Start Date: 08/27/24 Stop Date: 11/25/24 Status: Ordered Quantity: 270.0 Unit: tablet Repeat number: 1 metoprolol 25 mg oral tablet 25 mg, Tablet, By Mouth, Hold for: SBP<90 and HR<60, 08/27/24 9:00:00 AM EDT Start Date: 08/27/24 Stop Date: 08/27/24 Status: Completed Repeat number: 1 multivitamin Multiple Vitamins oral tablet 1 tablet, By Mouth, Daily, # 30 tablet, 0 Refills, Maintenance, 10/23/21 1:51:00 PM EDT, Tablet, [facility], Partial fill upon patient request if the prescription is for a schedule II opioid drug., 1 tablet By Mouth Daily,x30 days, 167, cm, 10/23/21 11:48:00 EDT, Height, 100.15, kg, 10/20/21 22:32:00 EDT, Dry Weight Start Date: 10/23/21 Stop Date: 11/22/21 Status: Ordered Quantity: 30.0 Unit: tablet Repeat number: 1 [place], 29 G x 12.7 mm BD Ultra Fine See Instructions, # 300 each, Refills 5, Tot. Refills 5, Maintenance, administer insulin at bedtime, 08/27/24 12:30:00 PM EDT, Supply, 180, cm, 08/27/24 7:59:00 EDT, Height, 97.5, kg, 08/25/24 17:33:00 EDT, Dry Weight Start Date: 08/27/24 Stop Date: 02/18/26 Status: Ordered Quantity: 300.0 Unit: each Repeat number: 6 simvastatin 10 mg oral tablet 10 mg, 1, tablet, By Mouth, Daily at bedtime, # 30 tablet, Refills 0, Maintenance, 09/14/18 12:33:01 PM EDT Start Date: 09/14/18 Status: Ordered Quantity: 30.0 Unit: tablet Repeat number: 1 Problem List Condition Confirmation Course Effective Dates Status H ealth Status Informant Alcohol abuse Confirmed Active COVID-19 1 Confirmed 10/23/21 Active COVID-19 2 Confirmed 07/30/24 Active Marijuana use Confirmed Active Gout Confirmed Active HF (heart failure) Confirmed Active HLD (hyperlipidemia) Confirmed Active HTN (hypertension) Confirmed Active Elevated LFTs Confirmed Active Mitral regurgitation Confirmed Active Obese class I Confirmed Active OA (osteoarthritis) of knee Confirmed Active Tobacco abuse Confirmed Active DM (diabetes mellitus), type 2 Confirmed Active 1Problem added by Discern Expert 2Problem added by Discern Expert Results Radiology Reports * Exam Date Time Procedure Performing Provider Status 08/23/24 1:[address] Angio Chest Nadiya Knapp (Verified) Notes: (CT Angio Chest) Reason For Exam: PE suspected, Intermediate prob, positive D-dimer,;Other: RESULT: CT Angio Chest CT Angio Chest INDICATION: Hx of Present Illness: Pt. is from endoscopy. Pt. was hospitalized last month for GI bleed. Today went to scheduled endoscopy, found to have new onset of afib, reports chest pain and neckpain HR-130's, BP-112 68, 94% RA.; Reason: Other:; PE suspected, Intermediate prob, positive D-dimer,; Clinical Question(s): Pulmonary Embolism; Order Comment: TECHNIQUE: Spiral CTA of the chest was performed after rapid IV contrast administration without cardiac gating, triggered by an PARESH on the main pulmonary artery. Images are formatted in multiple planes using 2-D multiplanar and 3-D maximum intensity projection. 90 cc of Isovue 300 was administered i ntravenously. Weight-based protocol using automatic tube modulation was used to optimize exposure parameters. CTDIvol Body: 12.63 mGy, DLP Body: 774 mGy*cm. COMPARISONS: None. ANGIOGRAPHIC FINDINGS: No evidence of large or central pulmonary embolism. Moderate respiratory motion artifact significantly degrading assessment Normal caliber pulmonary arteries. No acute aortic abnormality seen on this study performed without cardiac gating. Moderate atherosclerotic calcifications NON-ANGIOGRAPHIC FINDINGS: Dining Services Manager view findings, lines and tubes: None. Trachea and airways: Patent without evidence of tracheal or endobronchial lesion. Lungs and pleura: No focal pulmonary consolidation. Low lung volumes with mild bibasilar atelectasis. Incidental note is made of an azygos lobe. No effusion or pneumothorax. Mediastinum and yovany: No mass or hematoma. Few prominent mediastinal lymph nodes, not enlarged by size criteria No definite hilar lymphadenopathy. No esophageal abnormality. Heart: Mild cardiomegaly. Small pericardial effusion. Mild coronary artery calcification. Chest wall soft tissues: No acute abnormality. Diaphragm: Intact. Upper abdomen: No significant abnormality. Bones: No acute abnormality. IMPRESSION: Moderate respiratory motion artifact significantly degrades evaluation. Within this confine: 1. No evidence of large or central pulmonary embolism. 2. Small pericardial effusion. Mild cardiomegaly. 3. Low lung volumes with mild bibasilar atelectasis. WSN: [id number] Ordering Physician: Bessie Zamudio Dictated By: Caren Quach MD Dictated Date/Time: 08/23/24 2:01 pm Reviewed By: Caren Quach MD Signed By: Caren Quach MD Signed Date/Time: 08/23/24 2:01 pm Transcribed By: BROOKLYNN Transcribed Date/Time: 08/23/24 1:46 pm * Exam Date Time Procedure Performing Provider Status 08/23/24 10:05 AM Chest Portable Lyn Perez; Auth (Verified) Notes: (Chest Portable) Reason For Exam: CHF RESULT: Chest Portable Chest Portable Hx of Present Illness: Pt. Is from endoscopy. Pt. was hospitalized last month for GI bleed. Today went to scheduled endoscopy, found to have new onset of afib, reports chest pain and neck pain HR-130's, BP-112 68, 94% RA.; Reason: CHF; Clinical Question(s): CHF COMPARISON: 07/28/2024. Study is limited because patient has not taken a proper inspiration. FINDINGS: LINES AND TUBES: None. LUNGS AND PLEURA: There are small areas of bibasilar atelectasis more prominent in the right than the left lung base.There is no CHF. No pleural effusion. No pneumothorax. HEART, MEDIASTINUM AND YOVANY: Heart is normal in size. Aorta is tortuous and unfolded. BONES AND SOFT TISSUES: No acute abnormality. IMPRESSION: Small areas of bibasilar atelectasis. No CHF. WSN: [id number] Ordering Physician: Kg Dillon Dictated By: Arvin Cooper MD Dictated Date/Time: 08/23/24 10:18 a Reviewed By: Arvin Cooper MD Signed By: Arvin Cooper MD Signed Date/Time: 08/23/24 10:18 am Transcribed By: BROOKLYNN Transcribed Date/Time: 08/23/24 10:15 am Vital Signs Most recent to oldest [Reference Range]: 1 2 3 Height 180 cm (08/27/24 7:59 AM) 180 cm (08/27/24 2:16 AM) 180 cm (08/26/24 8:34 PM) Weight 99.5 kg (08/27/24 2:16 AM) 97.5 kg (08/26/24 1:00 AM) 97.5 kg (08/25/24 5:33 PM) Oxygen Saturation [94-100 %] 96 % (08/27/24 7:59 AM) 95 % (08/27/24 2:16 AM) 100 % (08/26/24 8:34 PM) Pulse Rate [55-90 bpm] 105 bpm *H* (08/27/24 8:41 AM) 105 bpm *H* (08/27/24 7:59 AM) 106 bpm *H* (08/27/24 2:16 AM) Body Mass Index [18.5-24.99 kg/m2] 30.71 kg/m2 *>HHI* (08/27/24 2:16 AM) 30.09 kg/m2 *>HHI* (08/25/24 5:33 PM) 29.41 kg/m2 *H* (08/23/24 7:13 PM) Blood Pressure [90-138/55-84 mm Hg] 109/70mm Hg (08/27/24 8:41 AM) 109/70mm Hg (08/27/24 7:59 AM) 123/69mm Hg (08/27/24 2:16 AM) Respiratory Rate [16-30 br/min] 18 br/min (08/27/24 7:59 AM) 18 br/min (08/27/24 2:16 AM) 18 br/min (08/26/24 8:34 PM) Temperature [96.8-100.4 DegF] 98.0 DegF (08/27/24 7:59 AM) 98.3 DegF (08/27/24 2:16 AM) 98.4 DegF (08/26/24 8:34 PM) Liters per Minute 2 L/min (08/27/24 2:16 AM) Mode of Delivery (Oxygen) Room air (08/27/24 7:59 AM) Nasal cannula (08/27/24 2:16 AM) Room air (08/26/24 8:34 PM) Blood pressure sites Arm, right (08/27/24 7:59 AM) Arm, left (08/27/24 2:16 AM) Arm, left (08/26/24 8:34 PM) Temperature Route Oral (08/27/24 7:59 AM) Oral (08/26/24 8:34 PM) Oral (08/26/24 4:00 PM) Dry Weight 97.5 kg (08/25/24 5:33 PM) 95.3 kg (08/23/24 7:13 PM) Weight Obtained Via Standing scale (08/27/24 2:16 AM) Standing scale (08/25/24 5:33 PM) Bed scale (08/23/24 7:13 PM) Dry Weight Obtained Via Standing scale (08/25/24 5:33 PM) Bed scale (08/23/24 7:13 PM) Social History Social History Type Response Smoking Status Never (less than 100 in lifetime) entered on: 08/23/24 Sex Sex Representation Male (finding) History and physical note * Sarah Griffith DO: PERFORM, MODIFY, MODIFY, MODIFY Event Display: History and Physical Hospital Authored Date: Patient: ??STACIA MIRANDA ? Age:??68 Years?Sex:??Male?:??1955?? Chief Complaint/Reason for Consultation Noted to have atrial fibrillation with heart rate in the 110s to 120s. History of Present Illness This is a 68-year-old male with past medical history including diabetes mellitus type 2, hypertension, hyperlipidemia, alcohol use disorder, history of alcoholic related liver cirrhosis, portal hypertension, and chronic kidney disease stage III, who presented to the hospital earlier today for colonoscopy and endoscopy that was scheduled to evaluate for possible occult GI bleed.?? He was noted to caden puri in new atrial fibrillation before his procedures, so he was sent to the ED for further evaluation.?? Patient reports that last night, he did develop some posterior neck pain, and also had some transient chest discomfort.?? He denies any palpitations or symptoms of lightheadedness/dizziness.?? In the ED, the patient was noted to have rapid heart rate in the 120s initially.?? Other vital signs were stable.?? Laboratory assessment on this patient showed a white blood cell count of 9.8 with a hemoglobin of 8.1 and a platelet count of 142.?? This is similar to or better than recent labs on this patient.?? INR was noted to be slightly elevated at 1.3 with a PT of 13 and D-dimer was 0.84.?? Chemistry panel was notable for a BUN of 15 and a creatinine of 1.47.?? Patient's baseline creatinine appears to range anywhere from 1.2-1.4.?? LFTs were noted to be normal.?? The patient's high-sensitivity troponin was 45 and subsequently 44, and then 58.?? TSH was normal.?? The patient did undergo a portable chest x-ray in the ED showed small areas of bibasilar atelectasis without CHF.?? A CTA of the chest was done that showed no large or central PE with small pericardial effusion and mild cardiomegaly as well as mild bibasilar atelectasis.?? There was moderate respiratory motion artifact which degraded evaluation. Review of Systems A complete review of systems was obtained and noted to be negative except as stated above in the HPI. Objective Measurements?? Height: 180 cm (08/24/24) Weight: 95.3 kg (08/23/24) Dry Weight: 95.3 kg (08/23/24) Body Mass Index:??29.41 kg/m2??High (08/23/24) ? Vital Signs?? Temperature: 98.2 DegF (08/24/24 01:16:00) Temperature Route: Oral (08/24/24 01:16:00) Pulse Rate:??94 bpm??High (08/24/24 01:16:00) Respiratory Rate: 20 br/min (08/24/24 01:16:00) Systolic Blood Pressure: 91 mm Hg (08/24/24 01:16:00) Diastolic Blood Pressure:??49 mm Hg??Low (08/24/24 01:16:00) Blood pressure sites: Arm, left (08/24/24 01:16:00) Mean Arterial Pressure: 63 mm Hg (08/24/24 01:16:00) Pulse Pressure: 42 mm Hg (08/24/24 01:16:00) Oxygen Saturation: 96 % (08/24/24 01:16:00) Mode of Delivery (Oxygen): Room air (08/24/24 01:16:00) Early Warning Score: 8 (08/24/24 01:16:39) ? Physical Exam General: Alert, in no acute cardiopulmonary distress. Mental Status: Oriented to person, place and time. Normal affect. Head: Normocephalic. Eyes: Pupils are equal, round and reactive to light. Extraocular muscles intact. Ear, Nose and Throat: Oropharynx clear, mucous membranes moist. Ears and nose without masses, lesions or deformities. Trachea midline. Neck: Supple, Full range of motion. Respiratory: Clear to auscultation and percussion. No wheezing, rales or rhonchi. Cardiovascular: Heart sounds with irregular S1 and S2, no murmurs, rubs or gallops. Gastrointestinal: Abdomen soft, non-tender, non-distended. Normal bowel sounds. No pulsatile mass. No hepatosplenomegaly. Neurologic: Cranial nerves II-XII grossly intact. No focal neurological deficits. Moves all extremities spontaneously. Sensation intact bilaterally. Skin: No rashes or lesions. No petechiae or purpura. No edema. Musculoskeletal: No cyanosis or clubbing. No gross deformities. Normal range of motion. Assessment/Plan Assessment:??This is a 68-year-old male with past medical history as noted above,??who presented [facility] for??outpatient endoscopy and colonoscopy, but was noted to be in rapid atrial fibrillation, so his??procedure was??canceled and??he was sent to the ED for further evaluation. ?? Rapid atrial fibrillation (I48.91) This patient will be admitted to an observation telemetry bed.?He presents with apparent new onset atrial fibrillation as he denies prior history of this.??Heart rate has been elevated but mainly in the 110s to 120s.??He did receive a dose of IV metoprolol in the ED with improvement of his heartrate.??We will initiate this patient on low-dose oral beta-marisol treatment in the form of metoprolol 25 mg twice daily.??We will plan on obtaining an echocardiogram on this patient in the morning.??His CHADS2 vascular score is at least 3, but given that he has had anemia and concern for occult GIbleed, we will hold off on initiating anticoagulation presently.??Cardiac enzymes were noted to be??in the mid 40s initially,??and then increased to 54.??Will continue to trend??his troponin??to makesure it remains flat.?Mild increase in troponin is likely related to some demand ischemia in thesetting of the heart rate, and also in the setting of patient's underlying chronic kidney disease. ?? Anemia (D64.9) Patient has had recent anemia and was hospitalized here in July with symptomatic anemia requiring blood transfusion.??He had presented today for EGD and colonoscopy, which was canceled due to presence of atrial fibrillation.??Will need to reach out to GI to see if procedures can be done once heartrate improved, as this will likely guide whether or not patient can safely be on anticoagulation and the standpoint of his atrial fibrillation.??Will continue patient on oral iron supplement. ?? Chronic kidney disease (CKD) (N18.9) Patient with stage III chronic kidney disease.??His creatinine appears to be around his baseline which seems to range around 1.2-1.4.??We will continue to monitor while he is here. ?? Hypertension (I10) Patient with history of hypertension and is normally on??amlodipine??as well as??lisinopril.?? As we are initiating beta-marisol treatment as noted above,??we will hold amlodipine for now, but plan on continuing??patient on lisinopril. ?? Type 2 diabetes mellitus (E11.9) Patient is normally on glipizide??and Jardiance??at home.??We will follow POC's here and cover withsliding scale insulin coverage as needed. ?? VTE Prophylaxis We will use subcu heparin for now and encourage early mobilization.??Patient does have??anemia and thrombocytopenia??in the setting of??liver cirrhosis, so we will??follow labs daily??to make sure nosignificant drop. ?VTE Prophylaxis Assessment:??VTE Prophylaxis Ordered ?? Code Status Confirmed with the patient that he is a full code. ?Order Code Status:??Code Status Ordered ? Patient seen on August 23, 2024.?? Total time spent with patient and in coordination of care: including reviewing the chart/medical records, speaking with the patient, formulating and discussing the treatment plan, and documenting the findings and encounter: ??70 + min ?? Histories Allergies Allergies ?(Active and Proposed Allergies Only) Indocin? (Severity: Unknown severity, Onset: Unknown) ? Past Medical History/Problem List Active Problems(13) Alcohol abuse COVID-19 COVID-19 DM (diabetes mellitus), type 2 Elevated LFTs Gout HF (heart failure) HLD (hyperlipidemia) HTN (hypertension) Marijuana use Mitral regurgitation OA (osteoarthritis) of knee Tobacco abuse ? Past Surgical History Bilateral knee surgery Left upper extremity??fasciotomy??secondary to MRSA infection ?? Social History Patient and lives with his spouse. Alcohol Details:??Use: Quit 1 month ago. Substance Abuse Details:??Use: Current. ??Type: Marijuana, daily. Tobacco Details:??Use: Former smoker??of about??three-quarter pack a day??for 40+ years??and quit??9 years ago Electronic Cigarette/Vaping Details:??Electronic Cigarette Use: Never. ?? Family Medical History Mother at 84??from natural causes . ??Father at 62 with an NE. Medications Home Medications??(Confirmed with the patient) Amlodipine (amLODIPine 10 mg oral tablet)??10 Milligram 1 tablet By Mouth Daily empagliflozin (Jardiance 25 mg oral tablet)??1 tab(s) 25 Milligram By Mouth Daily in AM Ferrous Fumarate (ferrous fumarate 325 mg oral tablet)??1 tab(s) 325 Milligram By Mouth Every Wednesday, Wednesday and Wednesday GlipiZIDE (glipiZIDE 5 mg oral tablet)??10 Milligram 2 tablet By Mouth 2 times a day Lisinopril (lisinopril 2.5 mg oral tablet)??2.5 Milligram 1 tablet By Mouth Daily Multivitamin (multivitamin Multiple Vitamins oral tablet)??1 tab(s) By Mouth Daily for 30 Days Simvastatin (simvastatin 10 mg oral tablet)??10 Milligram 1 tablet By Mouth Daily at bedtime ? Results Recent Labs BLOOD BANK Blood Type AB Positive ()?? 08/23/2024 09:33 Antibody Screen Negative ()?? 08/23/2024 09:33 ?? BLOOD COUNT & DIFF WBC 9.8 k/mm3 ()?? 08/23/2024 09:53 RBC 3.70 m/mm3 (Low)?? 08/23/2024 09:53 Hgb 8.1 Gm/dL (Low)?? 08/23/2024 09:53 Hct 27.6 % (Low)?? 08/23/2024 09:53 MCV 74.6 femtoliters (Low)?? 08/23/2024 09:53 MCH 21.9 pg (Low)?? 08/23/2024 09:53 MCHC 29.3 Gm/dL (Low)?? 08/23/2024 09:53 Platelet Count 142 k/mm3 (Low)?? 08/23/2024 09:53 RDW-SD 47.1 femtoliters (High)?? 08/23/2024 09:53 MPV 9.8 femtoliters ()?? 08/23/2024 09:53 Nucleated RBC (Automated) 0.0 #/100 WBC'S ()?? 08/23/2024 09:53 Abs. NRBC 0.0 k/mm3 ()?? 08/23/2024 09:53 Abs. Neut 8.3 k/mm3 (High)?? 08/23/2024 09:53 Abs. Lymph 0.5 k/mm3 (Low)?? 08/23/2024 09:53 Abs. [place] 0.9 k/mm3 ()?? 08/23/2024 09:53 Abs. Eo 0.0 k/mm3 ()?? 08/23/2024 09:53 Abs. Baso 0.0 k/mm3 ()?? 08/23/2024 09:53 Neut % 84.7 % (High)?? 08/23/2024 09:53 Lymph % 4.9 % (Low)?? 08/23/2024 09:53 [place] % 9.6 % ()?? 08/23/2024 09:53 Eos % 0.0 % ()?? 08/23/2024 09:53 Baso % 0.2 % ()?? 08/23/2024 09:53 Imm Gran 0.6 % ()?? 08/23/2024 09:53 Abs. Imm Gran 0.1 k/mm3 ()?? 08/23/2024 09:53 ?? CARDIAC High Sensitivity Troponin (HSTnT) 58 ng/L (Critical)?? 08/23/2024 22:09 ?? CHEM GENERAL Sodium 135 mmol/L ()?? 08/23/2024 09:53 Potassium 4.3 mmol/L ()?? 08/23/2024 09:53 Chloride 100 mmol/L ()?? 08/23/2024 09:53 Bicarbonate Level 18 mmol/L (Low)?? 08/23/2024 09:53 Anion Gap 17 mmol/L ()?? 08/23/2024 09:53 Glucose Level 487 mg/dL (High)?? 08/23/2024 09:53 Glucose, POC 452 mg/dL (High)?? 08/23/2024 21:20 BUN 15 mg/dL ()?? 08/23/2024 09:53 Creatinine-Blood 1.47 mg/dL (High)?? 08/23/2024 09:53 Estimated GFR Creatinine 52 ML/MIN/1.73 M2 ()?? 08/23/2024 09:53 Calcium 8.6 mg/dL ()?? 08/23/2024 09:53 Magnesium 1.8 mg/dL ()?? 08/23/2024 09:53 Protein, Total 7.0 Gm/dL ()?? 08/23/2024 09:53 Albumin 3.9 Gm/dL ()?? 08/23/2024 09:53 AG Ratio 1.3 ()?? 08/23/2024 09:53 Alkaline Phosphatase 94 units/L ()?? 08/23/2024 09:53 AST (SGOT) 16 units/L ()?? 08/23/2024 09:53 ALT (SGPT) 17 units/L ()?? 08/23/2024 09:53 Bilirubin, Total 0.6 mg/dL ()?? 08/23/2024 09:53 ?? COAG INR 1.3 (High)?? 08/23/2024 09:53 Protime (PT) 13.0 seconds (High)?? 08/23/2024 09:53 D-Dimer 0.84 mg/L FEU ()?? 08/23/2024 09:53 ?? ENDOCRINE/TUMOR MARKER TSH 1.23 uIU/mL ()?? 08/23/2024 09:53 ?? URINE OTHER Est Creatinine Clearance 51.72 mL/min ()?? 08/23/2024 21:02 ? Image ?Other Image ?Initial EKG showing atrial fibrillation with RVR and heart rate of 125.??ST segment elevation versus repolarization abnormality noted in V4-V6 as well as in lead II, III, and aVF.??Subsequent EKG atrial fibrillation with heart rate 118.??ST segment elevation noted in V2-V6 as well as in lead II and aVF. ?? (08/23/2024 10:05 EDT Chest Portable) IMPRESSION: ?? Small areas of bibasilar atelectasis. No CHF. [1] ?? (08/23/2024 13:[address] Angio Chest) IMPRESSION:?? Moderate respiratory motion artifact significantly degrades evaluation. Within this confine: ?? 1. ??No evidence of large or central pulmonary embolism. 2. ??Small pericardial effusion. Mild cardiomegaly. 3. ??Low lung volumes with mild bibasilar atelectasis. [2] [1]??Chest Portable; Arvin Cooper MD 08/23/2024 10:05 EDT [2]??CT Angio Chest; Caren Quach MD 08/23/2024 13:46 EDT EKG study * Event Display: ECG 12-Lead Authored Date: Please click on pdf link to open report * Event Display: ECG 12-Lead Authored Date: Ventricular Rate: 118 BPM QRS Duration: 96 ms Q-T Interval: 282 ms QTC Calculation(Bazett): 395 ms R Cornelius: 1 degrees T Cornelius: 23 degrees Atrial flutter with rapid ventricular response Cannot rule out Inferior infarct , age undetermined Anterior infarct (cited on or before 28-Jul-2024) Abnormal ECG When compared with ECG of 28-Jul-2024 12:31, Atrial flutter has replaced Sinus rhythm Questionable change in initial forces of Septal leads Confirmed by CURT AHN MD ([id number]) on 08/23/2024 4:23:09 PM Foster: CURT AHN MD US Heart * Event Display: Echocardiogram - Complete Authored Date: Transthoracic Echocardiography Report (TTE) Patient Demographics Patient Name STACIA MIRANDA Date of Study 08/24/2024 Corporate Gender Male Facility Race Ethnicity Date of 1955 Height: 70.87 inches Age 68 year(s) Weight: 209.44 pounds Accession Number [id number] BSA: 2.15 m2 Room Number [id number] BMI: 29.32 kg/m2 Referring Physician Unassigned Interpreting Jomar Peterson MD Unassigned Physician E [employer] Merchandising Coordinator Darren SPENCER Susu Indications Atrial fibrillation. Clinical History Diabetes HTN Alcohol abuse. Liver Cirrhosis HLD Study Data Type of Study TTE procedure:Echo Complete-(Doppler, Colorflow) with Contrast. Procedure Information:Definity was administered by Bottle Inspector . Study Date08/24/2024 Start Time: 10:28 AM Study Location: [facility] [place] Study Status: Echo lab Patient Status: Routine Technical Quality: Fair due to body habitus. Blood Pressure:92/61 mmHg EKG: Atrial fibrillation HR: 110 bpm Contrast Medium: Definity. Amount - 2 ml 2D Measurements LV Diastolic Dimension: 4.01 cm LV Systolic Dimension: 3.1 cm LV Septum Diastolic: 1.33 cm LV PW Diastolic: 1.18 cm AO Root Dimension: 4.29 cm LA Dimension: 4.7 cm LA ESV (BP):139.41 ml LVOT Stroke Volume: 68.04 ml LA ESV Index: 65 ml/m2 Stroke Volume Index31.65 ml/m2 LVOT: 2.42 cm Cardiac Index:3.48 l/min/m2 Ascending Aorta:3.64 cm Doppler Measurements AV Peak Velocity: 158.29 cm/s AV Peak Gradient: 10.02 mmHg AV Mean Gradient: 6.11 mmHg AV VTI:25.63 cm LVOT Peak Velocity: 88.1 cm/s LVOT VTI14.8 cm AV Area (Continuity):2.65 cm2 PV Peak Velocity: 87 cm/s PV Peak Gradient: 3.03 mmHg Cardiac Anatomy Left Ventricle/Interventricular Septum The left ventricle is poorly visualized but improved with contrast enhancement. The left ventricular size is normal. The left ventricular wall thickness is moderately increased. The LV systolic function is normal . The left ventricular ejection fraction is 55-65 %. No obvious wall motion abnormalities seen on limited views. Unable to assess diastolic function due to atrial fibrillation . Left Atrium/Interatrial Septum The left atrium is severely dilated. Aortic Valve The aortic valve is is poorly visualized. The aortic valve is probably trileaflet . The aortic valve appears mildly calcified. There is no significant aortic stenosis. There is no aortic regurgitation. Mitral Valve There is moderate mitral annular calcification. Mitral leaflet excursion is mildly reduced . There is moderate mitral regurgitation. The mitral regurgitation jet is posteriorly directed. Aorta The ascending aorta and aortic root are normal in size for BSA. Right Ventricle The right ventricle is poorly visualized. The right ventricle is normal in size. Right Atrium The right atrium is poorly visualized. The right atrium is normal in size. Pulmonic Valve The pulmonic valve appears grossly normal. Tricuspid Valve The tricuspid valve is poorly visualized. Pumonary Artery An accurate pulmonary artery pressure could not be obtained. Venous Structures The inferior vena cava is moderately dilated with poor inspiratory collapse consistent with elevated right atrial pressures. Pericardium/Extracardiac There is no significant pericardial effusion. Summary The left ventricle is poorly visualized but improved with contrast enhancement. The left ventricular size is normal. The left ventricular wall thickness is moderately increased. The LV systolic function is normal . The left ventricular ejection fraction is 55-65 %. No obvious wall motion abnormalities seen on limited views. Unable to assess diastolic function due to atrial fibrillation . The left atrium is severely dilated. The aortic valve is is poorly visualized. The aortic valve is probably trileaflet . The aortic valve appears mildly calcified. There is no significant aortic stenosis. There is no aortic regurgitation. There is moderate mitral annular calcification. Mitral leaflet excursion is mildly reduced . There is moderate mitral regurgitation. The mitral regurgitation jet is posteriorly directed. The right ventricle is poorly visualized. The right ventricle is normal in size. The inferior vena cava is moderately dilated with poor inspiratory collapse consistent with elevated right atrial pressures. Comparison Comparison is made to the study of September 14, 2018. Prior study was a transesophageal echo revealing significant mitral regurgitation at the lateral commissure. No prior transthoracic is available for comparison. Signature * Event Display: Echocardiogram - Complete Authored Date: Cardiology * Event Display: Cardiac Rhythm Strips Authored Date: * Event Display: Cardiac Rhythm Strips Authored Date: * Event Display: Cardiac Rhythm Strips Authored Date: Hospital Progress note * Alan Obregon MD: PERFORM, SIGN, VERIFY Event Display: Progress Note [facility] Authored Date: Patient: STACIA MIRANDA Age: 68 years Sex: Male : 1955 Associated Diagnoses: None Author: Alan Obregon MD Mr. Miranda is stable sitting up in a chair. Watching television. He does not feel any palpitations. He has no shortness of breath. Today's hemoglobin 7.8. Yesterday it was 7.1 hematocrit 26. White count 6.6. Platelets 149. Sodium 131 potassium 3.3 chloride 96 bicarb 17. BUN 37 creatinine 1.9 down from 2.47. High-sensitivity troponins back on the were 45 up to a peak of 62 has not been checked since. His blood pressures are ranging 109/70, 123/69. Heart rate is 5636-1579 and A-fib No JVD Clear lungs Rapid irregular rhythm without murmur No peripheral edema Echocardiogram on 24 August showed normal systolic function with an EF of 55-65. Severely dilated leftatrium. Moderate mitral regurgitation. Posteriorly directed. Medications include Augmentin, iron, insulin, metoprolol 25 mg 3 times a day, simvastatin. The GI note from yesterday says clear liquid diet for Wednesday with the colon prep. Planning for EGD and colonoscopy on the . Tomorrow. I think his heart rate is fairly well-controlled given his anemia. Would not add anything else at this time as he is asymptomatic from a cardiac standpoint I asked him about this being done he said not tomorrow. And I do wonder if he is slightly confused. He was here July 29 and had a GI consult. He was short of breath and had a hemoglobin of 4.2. He was in sinus rhythm at that time. * Cassi RANDOLPH, Pravin: PERFORM, MODIFY Event Display: Progress Note Hospital Authored Date: Patient: ??STACIA MIRANDA ? Age:??68 Years?Sex:??Male?:??1955?? Subjective pt seen and examined at bed side?vitals, labs, imaging studies reviewed. ? Review of Systems Constitutional:??No fever, chills Cardiovascular:?No chest pain,pressure or discomfort. No palpitations Respiratory:??No shortness of breath, cough or sputum production. Gastrointestinal:??No nausea, vomiting or diarrhea. No abdomen pain Genitourinary:??No dysuria, hematuria Objective Vital Signs?? Temperature: 98 DegF (08/27/24 07:59:00) Temperature Route: Oral (08/27/24 07:59:00) Pulse Rate:??105 bpm??High (08/27/24 08:41:00) Respiratory Rate: 18 br/min (08/27/24 07:59:00) Systolic Blood Pressure: 109 mm Hg (08/27/24 08:41:00) Diastolic Blood Pressure: 70 mm Hg (08/27/24 08:41:00) Blood pressure sites: Arm, right (08/27/24 07:59:00) Mean Arterial Pressure: 83 mm Hg (08/27/24 07:59:00) Pulse Pressure: 39 mm Hg (08/27/24 07:59:00) Oxygen Saturation: 96 % (08/27/24 07:59:00) Liters per Minute: 2 L/min (08/27/24 02:16:00) Mode of Delivery (Oxygen): Room air (08/27/24 07:59:00) Early Warning Score: 5 (08/27/24 08:46:45) ? Intake/Output? 08/23 16:02 08/27 07:00 08/26 07:00 08/25 07:00 08/24 07:00 ?? 08/27 11:36 08/27 11:36 08/27 06:59 08/26 06:59 08/25 06:59 Intake ? 2115 ?0 ? 1345 ?470 ?300 Output ?0 ?0 ?0 ?0 ?0 Net Total ? 2115 ?0 ? 1345 ?470 ?300 ? Urine Count ?6 ?0 ?2 ?4 ?0 ? Physical Exam ?General :??No apparent distress?Respiratory??: Bilateral air entry fair. No wheeze or crackles. ?Cardiac??: Regular rate and rhythm, S1S2+ ?Abdomen/GI??: soft, non-tender, non-distended, bowel sounds present. ?Neurologic??: Alert & oriented? Extremities??: No edema.? _ Inpatient Medications Medications (20) Active SCHEDULED: (10) Acetaminophen 325 mg Tablet (Acetaminophen Tablet) ??650 mg, By Mouth, 3 times a day Amoxicillin 875 mg/Clavulanate 125 mg Tablet (Augmentin 875 Tablet) ??1 tablet, By Mouth, 2 times aday Ferrous Sulfate 325 mg EC Tablet (ferrous sulfate 325 mg oral enteric coated tablet) ??325 mg, By Mouth, Every Wednesday, Wednesday and Wednesday Insulin Glargine 100 units/mL Inj (Lantus Inj) ??28 units 0.28 mL, Subcutaneous Injection, Daily atbedtime Insulin Lispro 100 units/mL Inj (Insulin LISPRO Sliding Scale) ??2-10 units, Subcutaneous Injection, 3 times a day before meals Insulin Lispro 100 units/mL Inj (Insulin LISPRO Inj) ??9 units 0.09 mL, Subcutaneous Injection, 3 times a day before meals Metoprolol 25mg Tablet (metoprolol 25 mg oral tablet) ??25 mg, By Mouth, 3 times a day NaCl 0.9% Flush 3ml (NaCL 0.9% Flush) ??3 mL, IV Push, Every 8 hours PEG Electrolyte solution (Golytely Liquid) ??4,000 mL, By Mouth, Once Simvastatin 10 mg Tablet (simvastatin 10 mg oral tablet) ??10 mg, By Mouth, Daily at bedtime CONTINUOUS: (0) PRN: (10) Dextrose Inj Syringe (Dextrose 50% Inj Syringe (25Gm)) ??12.5 Gm, IV Push Slowly, Every 20 minutes Dextrose Inj Syringe (Dextrose 50% Inj Syringe (25Gm)) ??25 Gm, IV Push Slowly, Every 15 minutes Glucagon 1 mg Inj (Glucagon Inj) ??1 mg, Intramuscular, Once Glucose 40% Gel (15 Gm) (Glucose Gel) ??15 Gm, By Mouth, Every 20 minutes Glucose 40% Gel (15 Gm) (Glucose Gel) ??30 Gm, By Mouth, Every 20 minutes Melatonin 3 mg Tablet (Melatonin Tablet) ??3 mg, By Mouth, Daily at bedtime NaCl 0.9% Flush 3ml (NaCL 0.9% Flush) ??3 mL, IV Push, Every 8 hours Ondansetron 2mg/mL Inj (2mL Vial) (Ondansetron Inj) ??4 mg, IV Push Slowly, Every 30 minutes Polyethylene Glycol 17 Gm Powder (MiraLax Powder) ??17 Gm 1 pack/packet, By Mouth, Daily Senna Tablet ??8.6 mg 1 tablet, By Mouth, 2 times a day ? Results Recent Labs BLOOD BANK Blood Type AB Positive ()?? 08/26/2024 13:56 Antibody Screen Negative ()?? 08/26/2024 13:56 ?? BLOOD COUNT & DIFF WBC 6.6 k/mm3 ()?? 08/27/2024 00:05 RBC 3.51 m/mm3 (Low)?? 08/27/2024 00:05 Hgb 7.8 Gm/dL (Low)?? 08/27/2024 00:05 Hct 25.8 % (Low)?? 08/27/2024 00:05 MCV 73.5 femtoliters (Low)?? 08/27/2024 00:05 MCH 22.2 pg (Low)?? 08/27/2024 00:05 MCHC 30.2 Gm/dL (Low)?? 08/27/2024 00:05 Platelet Count 149 k/mm3 (Low)?? 08/27/2024 00:05 RDW-SD 47.6 femtoliters (High)?? 08/27/2024 00:05 MPV 10.2 femtoliters ()?? 08/27/2024 00:05 Nucleated RBC (Automated) 0.0 #/100 WBC'S ()?? 08/27/2024 00:05 Abs. NRBC 0.0 k/mm3 ()?? 08/27/2024 00:05 Abs. Neut 4.6 k/mm3 ()?? 08/26/2024 00:35 Abs. Lymph 0.6 k/mm3 (Low)?? 08/26/2024 00:35 Abs. [place] 0.6 k/mm3 ()?? 08/26/2024 00:35 Abs. Eo 0.1 k/mm3 ()?? 08/26/2024 00:35 Abs. Baso 0.0 k/mm3 ()?? 08/26/2024 00:35 Neut % 77.3 % (High)?? 08/26/2024 00:35 Lymph % 10.8 % (Low)?? 08/26/2024 00:35 [place] % 10.1 % ()?? 08/26/2024 00:35 Eos % 0.8 % ()?? 08/26/2024 00:35 Baso % 0.5 % ()?? 08/26/2024 00:35 Imm Gran 0.5 % ()?? 08/26/2024 00:35 Abs. Imm Gran 0.0 k/mm3 ()?? 08/26/2024 00:35 ?? CHEM GENERAL Sodium 131 mmol/L (Low)?? 08/27/2024 00:05 Potassium 3.3 mmol/L (Low)?? 08/27/2024 00:05 Chloride 96 mmol/L (Low)?? 08/27/2024 00:05 Bicarbonate Level 17 mmol/L (Low)?? 08/27/2024 00:05 Anion Gap 18 mmol/L (High)?? 08/27/2024 00:05 Glucose Level 175 mg/dL (High)?? 08/27/2024 00:05 Glucose, POC 265 mg/dL (High)?? 08/27/2024 08:25 Beta Hydroxybutyrate 0.11 mmol/L ()?? 08/26/2024 00:35 BUN 37 mg/dL (High)?? 08/27/2024 00:05 Creatinine-Blood 1.93 mg/dL (High)?? 08/27/2024 00:05 Estimated GFR Creatinine 37 ML/MIN/1.73 M2 ()?? 08/27/2024 00:05 Calcium 8.2 mg/dL (Low)?? 08/27/2024 00:05 ?? URINE OTHER Est Creatinine Clearance 39.40 mL/min ()?? 08/27/2024 00:44 ? Blood Glucose Trend Glucose Level:??175 mg/dL??High (08/27/24 00:05:00) Glucose, POC:??265 mg/dL??High (08/27/24 08:25:00) Glucose, POC:??164 mg/dL??High (08/26/24 20:39:00) Glucose, POC:??137 mg/dL??High (08/26/24 17:09:00) Glucose, POC:??231 mg/dL??High (08/26/24 12:34:00) ? Assessment/Plan ?68 year old male with a PMHX of HTN, HLD, type 2 DM, alcohol use disorder, liver cirrhosis, mitral valve regurg, recent admission for anemia requiring transfusion and concern for occult GI bleed who presents with new onset afib.??Patient has baseline stage III CKD with creatinine 1.2???1.4.. Now with mild hyponatremia and worsening CHARLENE peaking at 2.8. ? CHARLENE- ATN CKD BL cr 1-2--1.4 Isoosmolar Hyponatremia anion gap metabolic acidosis He appears to be having a multifactorial CHARLENE in the setting of??A-fib RVR, soft blood pressures, contrast exposure (08/23)??and??poor p.o. intake. Urine lites consistent with??prerenal CHARLENE??however??he also likely has??patchy ATN He has hypoosmolar hyponatremia in the setting of??mild hyperglycemia??and possibly the??hypovolemic component ? cr 2.8---> 2.47--1.93 today ?? Recommend encourage po fluid intake sodium corrected for hyperglycemia is wnl agree with holding home med lisinopril and sglt2i?- to be resumed later once cr genesis to baseline,will fu in office ? Thank you for the courtesy of this consult, RTANE ??will continue monitoring the patient along withyou please do not hesitate to call us with any further questions ?? Pravin Ye M.D. [facility] [address], [address], [place]. [place]? * Lupe Fuchs: PERFORM Event Display: Progress Note Hospital Authored Date: Patient: ??STACIA MIRANDA ? Age:??68 Years?Sex:??Male?:??1955?? Subjective ??68-year-old male with past medical history including diabetes mellitus type 2, hypertension, hyperlipidemia, alcohol use disorder, history of alcoholic related liver cirrhosis, portal hypertension,and chronic kidney disease stage III, who presented to the hospital on 08/23 for colonoscopy and endoscopy that was scheduled to evaluate for possible occult GI bleed.?? He was noted to be in new atrial fibrillation before his procedures, so he was sent to the ED for further evaluation. The patient did undergo a portable chest x-ray in the ED showed small areas of bibasilar atelectasis without CHF.? HbA1c since admission at 9.7%. DM managed by PCP. ?? Home DM Medications: -Jardiance 25mg daily -Glipizide 5mg, 2 tabs 2x daily. ?? DM Hospital Medications: -Lantus 28 units daily at bedtime. (0.25u/kg) -lispro sliding scale starting at??9 units per 100mg/dL. increase 2 units per 50mg/dL, 3 times daily before meals. Hold for NPO diet: clear liquid diet, NPO tonight.? BG trended between 137 to 238. Morning BG no available at the time of this note.??received 61 unitsof insulin in the last 24 hours. ?? Objective Vitals & Measurements T:??98.0?F?? TMIN:??97.8?F?? TMAX:??98.4?F?? HR:??105??(Peripheral)?? RR:??18?? BP:??109/70?? SpO2:??96%?? WT:??99.5??kg?? Assessment/Plan Type 2 diabetes mellitus (E11.9):?? BG trended down to goal. Morning BG not available at??this time of this note writing. Will re-writescale to be split between prandial and correction as patient is NPO tonight per orders. No other changes at this time.? Plan:?? - Continue lantus 28 units daily - Lispro fixed dose 9 units three times daily prior to meals,??hold if NPO - lispro correction 2:150 + 2:50, three times daily prior to meals. Can give if NPO. please give ontop of lispro fixed dose.? Discharge Recs: currently requiring about 0.6u/kg/day of insulin, anticipate this being covered by lantus??32 units daily and glipizide 10mg BID. Jardiance can be added back if needed in the outpatient setting. Pt state he is unwilling to change his diet and does not want to follow with endo.? BIDS will continue to monitor.? Medications Inpatient Acetaminophen Tablet, 650 mg, By Mouth, 3 times a day Augmentin 875 Tablet, 1 tablet, By Mouth, 2 times a day Dextrose 50% Inj Syringe (25Gm), 12.5 Gm, IV Push Slowly, Every 20 minutes, PRN Dextrose 50% Inj Syringe (25Gm), 25 Gm, IV Push Slowly, Every 15 minutes, PRN ferrous sulfate 325 mg oral enteric coated tablet, 325 mg, By Mouth, Every Wednesday, Wednesday and Wednesday Glucagon Inj, 1 mg, Intramuscular, Once, PRN Glucose Gel, 15 Gm, By Mouth, Every 20 minutes, PRN Glucose Gel, 30 Gm, By Mouth, Every 20 minutes, PRN Golytely Liquid, 4000 mL, By Mouth, Once Insulin LISPRO Inj, 9 units= 0.09 mL, Subcutaneous Injection, 3 times a day before meals Insulin LISPRO Sliding Scale, 2-10 units, Subcutaneous Injection, 3 times a day before meals Lantus Inj, 28 units= 0.28 mL, Subcutaneous Injection, Daily at bedtime Melatonin Tablet, 3 mg, By Mouth, Daily at bedtime, PRN metoprolol 25 mg oral tablet, 25 mg, By Mouth, 3 times a day MiraLax Powder, 17 Gm= 1 pack/packet, By Mouth, Daily, PRN NaCL 0.9% Flush, 3 mL, IV Push, Every 8 hours NaCL 0.9% Flush, 3 mL, IV Push, Every 8 hours, PRN Ondansetron Inj, 4 mg, IV Push Slowly, Every 30 minutes, PRN Senna Tablet, 8.6 mg= 1 tablet, By Mouth, 2 times a day, PRN simvastatin 10 mg oral tablet, 10 mg, By Mouth, Daily at bedtime Home amLODIPine 10 mg oral tablet, 10 mg= 1 tablet, By Mouth, Daily ferrous fumarate 325 mg oral tablet, 325 mg= 1 tablet, By Mouth, Every Wednesday, Wednesday and Wednesday glipiZIDE 5 mg oral tablet, 10 mg= 2 tablet, By Mouth, 2 times a day Golytely - oral powder for reconstitution, 240 mL, By Mouth, Every 10 minutes Jardiance 25 mg oral tablet, 25 mg= 1 tablet, By Mouth, Daily in AM lisinopril 2.5 mg oral tablet, 2.5 mg= 1 tablet, By Mouth, Daily multivitamin Multiple Vitamins oral tablet, 1 tablet, By Mouth, Daily simvastatin 10 mg oral tablet, 10 mg= 1 tablet, By Mouth, Daily at bedtime Consult note * Linwood Nicolas DO: PERFORM, MODIFY Event Display: Consultation Note Authored Date: [id number] Patient: ??STACIA MIRANDA ? Age:??68 Years?Sex:??Male?:??1955?? Referrring Provider Heidy Gil MD Chief Complaint Noted to have atrial fibrillation with heart rate in the 110s to 120s. Reason for Consultation Suspect occult bleed, admitted for endoscopy consider inpatient workup to determine anticoagulationplan for atrial fibrillation. History of Present Illness ?? Stacia Miranda is a 68-year-old female with a pertinent past medical history for hypertension, hyperlipidemia, type 2 diabetes mellitus EtOH use, cirrhosis and chronic kidney disease stage III is presenting to [facility] in the setting of concerns for occult GI bleed.?? Patient was recently noted to have atrial fibrillation before his procedure and so he was sent to the emergency department.?? He did denies any palpitations or symptoms of lightheadedness or neck.?? In the patient hehad rapid heart rate 120.?? Initial blood work notes a hemoglobin of 7.8, hematocrit 26.2 and an MCV of 74.4.?? Chemistry panel is notable for hyponatremia of 128, BUN of 36 and a creatinine of 2.8.?? CT abdomen CTA of the chest showed no large or central pulmonary embolus.?? Echocardiogram was obtained which had demonstrated moderate mitral annular calcifications with moderate mitral regurgitation.?? Of note patient had an EGD and colonoscopy performed in 2021 which had shown diffuse edema andpunctate hemorrhages consistent with portal hypertensive colopathy along with internal and external hemorrhoids.?? There was also congestion and edema of the stomach body compatible with portal hypertensive gastropathy.?? Angiectasias were also found in the antrum of the stomach and had undergone Endo-therapy.?? At that time he also had a duodenal Dula for lesion that underwent Endo Clip.?? GI consult was placed for evaluation for endoscopic evaluation. ?? Patient was seen at the bedside.?? He is currently been here since Wednesday??when he presented for an outpatient EGD and colonoscopy. ??At that time he was found to be in atrial fibrillation withRVR.?? He now has been here, and overall does not want to stay any longer for??a bidirectional endoscopic evaluation. ??He is hoping to have this done outpatient.?? Patient denies any melena or hematochezia.?? He notes that he has been sober??now for 6 weeks. ??He was previously sober for over a year.?? He typically drinks??beer (Heineken), but will not??clarify quantity.?? He is aware of his??diagnosis of alcohol induced cirrhosis.?? He currently does not follow with gastroenterology.?? Will set up for follow-up. Review of Systems A complete review of systems has been performed??and determined to be negative unless otherwise noted above in the patient's??HPI. Physical Exam Vitals & Measurements T:??98.1?F?? TMIN:??97.8?F?? TMAX:??98.6?F?? HR:??108??(Peripheral)?? RR:??16?? BP:??93/59?? SpO2:??95%?? Constitutional: Alert, in no distress. Mental Status: A and O x4. Head: Normocephalic. Eyes: Extraocular muscles intact. Ear, Nose and Throat: Moist mucous membranes. Respiratory: Clear to auscultation. No wheezing. Cardiovascular: S1 S2 regular. Irregularly irregular. Gastrointestinal: Abdomen soft, non-tender, non-distended. Neurologic: No focal neurological deficits. Skin: No rashes.?? Musculoskeletal: No gross deformities. Assessment/Plan 68-year-old female with a pertinent past medical history for hypertension, hyperlipidemia, type 2 diabetes mellitus EtOH use, cirrhosis and chronic kidney disease stage III is presenting to [facility] in the setting of concerns for occult GI bleed. ?? #Microcytic anemia #Iron deficiency anemia #EtOH induced cirrhosis #Acute on Chronic Anemia #Severe EtOH use in remission ?? Patient initially presented for bidirectional endoscopy in the setting of??iron deficiency anemia. ??Patient's had a prior endoscopic evaluation 2021??that was found to show??portal colopathy??and portal hypertensive gastropathy.?? Likely these are??accounting for his occult blood loss.?? Given hisdiagnosis of cirrhosis it would be important to also??assess for varices.?? At this time??patient was found to have??atrial fibrillation and is pending evaluation prior to starting on anticoagulation.? After further discussion patient does not want to stay in house??for endoscopic evaluation. ??He isopen at this time as an outpatient. ?? Recommendations: Will plan for outpatient bidirectional endoscopy??in the hospital covered slot if patient decides to leave. We would advocate for inpatient stay given kidney injury - and in the event that he decides to staywe will plan for inpatient EGD/Colonoscopy tomorrow Continue clear liquids Prep??overnight if he decides to have it done while he is here. Follow-up to be arranged with [facility] gastroenterology??for his??alcohol induced cirrhosis Trend H/H and transfuse with pRBC as needed hemoglobin less than 7 and hematocrit less than 21 Advocate for sobriety - addiction medicine consult IV iron supplementation GI following ? Thank you for referring this patient to the Division of Gastroenterology, [facility] [place], [place]. ??I appreciate the opportunity to participate in the care of yourpatient, and would be happy to assist you in future. ?? (The above document was created using Zollo voice recognition software. As such, head boys tennis coach errors may occur. Please contact the provider for additional questions and if clarification is needed.) ? Linwood Nicolas, DO PGY-6 Gastroenterology Fellow [facility] Division of Gastroenterology [email or web address] ?? Attestation: Patient??was seen and discussed with the attending, Dr. Salvador Guidry. Problem List/Past Medical History Ongoing Alcohol abuse COVID-19 COVID-19 DM (diabetes mellitus), type 2 Elevated LFTs Gout HF (heart failure) HLD (hyperlipidemia) HTN (hypertension) Marijuana use Mitral regurgitation OA (osteoarthritis) of knee Tobacco abuse Medications Inpatient Acetaminophen Tablet, 650 mg, By Mouth, 3 times a day Augmentin 875 Tablet, 1 tablet, By Mouth, 2 times a day Dextrose 50% Inj Syringe (25Gm), 12.5 Gm, IV Push Slowly, Every 20 minutes, PRN Dextrose 50% Inj Syringe (25Gm), 25 Gm, IV Push Slowly, Every 15 minutes, PRN ferrous sulfate 325 mg oral enteric coated tablet, 325 mg, By Mouth, Every Wednesday, Wednesday and Wednesday Glucagon Inj, 1 mg, Intramuscular, Once, PRN Glucose Gel, 15 Gm, By Mouth, Every 20 minutes, PRN Glucose Gel, 30 Gm, By Mouth, Every 20 minutes, PRN Insulin LISPRO Sliding Scale, 5-15 units, Subcutaneous Injection, 3 times a day before meals Lantus Inj, 20 units= 0.2 mL, Subcutaneous Injection, Daily at bedtime Melatonin Tablet, 3 mg, By Mouth, Daily at bedtime, PRN metoprolol 25 mg oral tablet, 25 mg, By Mouth, 3 times a day MiraLax Powder, 17 Gm= 1 pack/packet, By Mouth, Daily, PRN NaCL 0.9% Flush, 3 mL, IV Push, Every 8 hours NaCL 0.9% Flush, 3 mL, IV Push, Every 8 hours, PRN Ondansetron Inj, 4 mg, IV Push Slowly, Every 30 minutes, PRN oxyCODONE 5 mg oral tablet, 2.5 mg, By Mouth, Every 6 hours, PRN Senna Tablet, 8.6 mg= 1 tablet, By Mouth, 2 times a day, PRN simvastatin 10 mg oral tablet, 10 mg, By Mouth, Daily at bedtime tiZANidine 4 mg oral tablet, 2 mg, By Mouth, 3 times a day, PRN Home amLODIPine 10 mg oral tablet, 10 mg= 1 tablet, By Mouth, Daily ferrous fumarate 325 mg oral tablet, 325 mg= 1 tablet, By Mouth, Every Wednesday, Wednesday and Wednesday glipiZIDE 5 mg oral tablet, 10 mg= 2 tablet, By Mouth, 2 times a day Golytely - oral powder for reconstitution, 240 mL, By Mouth, Every 10 minutes Jardiance 25 mg oral tablet, 25 mg= 1 tablet, By Mouth, Daily in AM lisinopril 2.5 mg oral tablet, 2.5 mg= 1 tablet, By Mouth, Daily multivitamin Multiple Vitamins oral tablet, 1 tablet, By Mouth, Daily simvastatin 10 mg oral tablet, 10 mg= 1 tablet, By Mouth, Daily at bedtime Allergies Indocin Social History Alcohol Use: Quit 1 month ago. Electronic Cigarette/Vaping Electronic Cigarette Use: Never. Substance Abuse Use: Current. Type: Marijuana. Tobacco Use: Never (less than 100 in lifetime). Family History No pertinent family history Lab Results Test Name Test Result Date/Time WBC 8.6 k/mm3 08/25/2024 00:29 EDT RBC 3.52 m/mm3 08/25/2024 00:29 EDT Hgb 7.8 Gm/dL 08/25/2024 00:29 EDT Hct 26.2 % 08/25/2024 00:29 EDT MCV 74.4 femtoliters 08/25/2024 00:29 EDT MCH 22.2 pg 08/25/2024 00:29 EDT MCHC 29.8 Gm/dL 08/25/2024 00:29 EDT Platelet Count 153 k/mm3 08/25/2024 00:29 EDT RDW-SD 48.3 femtoliters 08/25/2024 00:29 EDT MPV 10.8 femtoliters 08/25/2024 00:29 EDT Nucleated RBC (Automated) 0.0 #/100 WBC'S 08/25/2024 00:29 EDT Abs. NRBC 0.0 k/mm3 08/25/2024 00:29 EDT Abs. Neut 6.5 k/mm3 08/25/2024 00:29 EDT Abs. Lymph 1.0 k/mm3 08/25/2024 00:29 EDT Abs. [place] 1.0 k/mm3 08/25/2024 00:29 EDT Abs. Eo 0.1 k/mm3 08/25/2024 00:29 EDT Abs. Baso 0.0 k/mm3 08/25/2024 00:29 EDT Neut % 75.8 % 08/25/2024 00:29 EDT Lymph % 11.3 % 08/25/2024 00:29 EDT [place] % 11.2 % 08/25/2024 00:29 EDT Eos % 0.7 % 08/25/2024 00:29 EDT Baso % 0.4 % 08/25/2024 00:29 EDT Imm Gran 0.6 % 08/25/2024 00:29 EDT Abs. Imm Gran 0.1 k/mm3 08/25/2024 00:29 EDT Sodium 128 mmol/L 08/25/2024 00:29 EDT Potassium 4.1 mmol/L 08/25/2024 00:29 EDT Chloride 97 mmol/L 08/25/2024 00:29 EDT Bicarbonate Level 16 mmol/L 08/25/2024 00:29 EDT Anion Gap 15 mmol/L 08/25/2024 00:29 EDT Glucose Level 156 mg/dL 08/25/2024 00:29 EDT BUN 36 mg/dL 08/25/2024 00:29 EDT Creatinine-Blood 2.80 mg/dL 08/25/2024 00:29 EDT Estimated GFR Creatinine 24 ML/MIN/1.73 M2 08/25/2024 00:29 EDT Calcium 7.8 mg/dL 08/25/2024 00:29 EDT * Salvador Guidry MD: PERFORM Event Display: Consultation Note Authored Date: Attending Attestation:??I have seen and evaluated this patient. ??I have discussed the case and themanagement with the fellow, and agree with the findings and plan as documented in the fellow???s note. * Cassi RANDOLPH, Pravin: PERFORM, MODIFY Event Display: Consultation Note Authored Date: Patient: ??STACIA MIRANDA ? Age:??68 Years?Sex:??Male?:??1955?? Chief Complaint/Reason for Consultation Noted to have atrial fibrillation with heart rate in the 110s to 120s. History of Present Illness 68 year old male with a PMHX of HTN, HLD, type 2 DM, alcohol use disorder, liver cirrhosis, mitral valve regurg, recent admission for anemia requiring transfusion and concern for occult GI bleed who presents with new onset afib.??Patient has baseline stage III CKD with creatinine 1.2???1.4.. Now with mild hyponatremia and worsening CHARLENE peaking at 2.8. ?? No??dysuria, hematuria,??dribbling,??incontinence No nausea, vomiting, diarrhea h/o ??contrast exposure on 08/23 h/o low blood pressure??in hospital. No history of excess use of nsaid ? Objective Measurements?? Height: 180 cm (08/25/24) Weight: 95.3 kg (08/23/24) Dry Weight: 95.3 kg (08/23/24) Body Mass Index:??29.41 kg/m2??High (08/23/24) ? Vital Signs?? Temperature: 98.1 DegF (08/25/24 06:44:00) Temperature Route: Oral (08/25/24 06:44:00) Pulse Rate:??108 bpm??High (08/25/24 08:27:00) Respiratory Rate: 16 br/min (08/25/24 06:44:00) Systolic Blood Pressure: 93 mm Hg (08/25/24 08:27:00) Diastolic Blood Pressure: 59 mm Hg (08/25/24 08:27:00) Blood pressure sites: Arm, right (08/25/24 06:44:00) Mean Arterial Pressure: 70 mm Hg (08/25/24 06:44:00) Pulse Pressure: 34 mm Hg (08/25/24 06:44:00) Oxygen Saturation: 95 % (08/25/24 06:44:00) Mode of Delivery (Oxygen): Room air (08/25/24 06:44:00) Early Warning Score: 6 (08/25/24 08:33:05) ? Physical Exam ?General :??No apparent distress?Respiratory??: Bilateral air entry fair. No wheeze or crackles. ?Cardiac??: Regular rate and rhythm, S1S2+ ?Abdomen/GI??: soft, non-tender, non-distended, bowel sounds present. ?Neurologic??: Alert & oriented? Extremities??: No edema.? Assessment/Plan ?68 year old male with a PMHX of HTN, HLD, type 2 DM, alcohol use disorder, liver cirrhosis, mitral valve regurg, recent admission for anemia requiring transfusion and concern for occult GI bleed who presents with new onset afib.??Patient has baseline stage III CKD with creatinine 1.2???1.4.. Now with mild hyponatremia and worsening CHARLENE peaking at 2.8. ? CHARLENE- ATN CKD BL cr 1-2--1.4 Isoosmolar Hyponatremia He appears to be having a multifactorial CHARLENE in the setting of??A-fib RVR, soft blood pressures, contrast exposure (08/23)??and??poor p.o. intake. Urine lites consistent with??prerenal CHARLENE??however??he also likely has??patchy ATN He has hypoosmolar hyponatremia in the setting of??mild hyperglycemia??and possibly the??hypovolemic component ? Recommend IV fluid at 75 mL/h??for 1 L??to defend intravascular volume expect sodium to improve with the correction of hypovolemia agree with holding home med lisinopril and [id number] ?? -No indications for dialysis today - Avoid NSAIDs, contrast dye, nephrotoxic agents, MARTHA/ARBs , fleet enema, large fluctuations in blood pressure - MAR reviewed, no nephrotoxins noted ? Thank you for the courtesy of this consult, HALLE ??will continue monitoring the patient along with you please do not hesitate to call us with any further questions ?? Pravin Ye M.D. [facility] [address], [address], [place]. [place]? Histories Past Medical History/Problem List Active Problems(13) Alcohol abuse COVID-19 COVID-19 DM (diabetes mellitus), type 2 Elevated LFTs Gout HF (heart failure) HLD (hyperlipidemia) HTN (hypertension) Marijuana use Mitral regurgitation OA (osteoarthritis) of knee Tobacco abuse ? Past Surgical History No surgery history documented. ? Social History Alcohol Details:??Use: Quit 1 month ago. Substance Abuse Details:??Use: Current. ??Type: Marijuana. Tobacco Details:??Use: Never (less than 100 in lifetime). Electronic Cigarette/Vaping Details:??Electronic Cigarette Use: Never. ? Family History No Family History documented. ? Medications Home Medications Amlodipine (amLODIPine 10 mg oral tablet)??10 Milligram 1 tablet By Mouth Daily empagliflozin (Jardiance 25 mg oral tablet)??1 tab(s) 25 Milligram By Mouth Daily in AM Ferrous Fumarate (ferrous fumarate 325 mg oral tablet)??1 tab(s) 325 Milligram By Mouth Every Wednesday, Wednesday and Wednesday GlipiZIDE (glipiZIDE 5 mg oral tablet)??10 Milligram 2 tablet By Mouth 2 times a day Lisinopril (lisinopril 2.5 mg oral tablet)??2.5 Milligram 1 tablet By Mouth Daily Multivitamin (multivitamin Multiple Vitamins oral tablet)??1 tab(s) By Mouth Daily for 30 Days PEG Electrolyte Solution (Golytely - oral powder for reconstitution)??240 Milliliter By Mouth Every10 minutes until 4 liters are consumed or the rectal effluent is clear Simvastatin (simvastatin 10 mg oral tablet)??10 Milligram 1 tablet By Mouth Daily at bedtime ? Inpatient Medications Medications (20) Active SCHEDULED: (8) Acetaminophen 325 mg Tablet (Acetaminophen Tablet) ??650 mg, By Mouth, 3 times a day Amoxicillin 875 mg/Clavulanate 125 mg Tablet (Augmentin 875 Tablet) ??1 tablet, By Mouth, 2 times aday Ferrous Sulfate 325 mg EC Tablet (ferrous sulfate 325 mg oral enteric coated tablet) ??325 mg, By Mouth, Every Wednesday, Wednesday and Wednesday Insulin Glargine 100 units/mL Inj (Lantus Inj) ??20 units 0.2 mL, Subcutaneous Injection, Daily at bedtime Insulin Lispro 100 units/mL Inj (Insulin LISPRO Sliding Scale) ??5-15 units, Subcutaneous Injection, 3 times a day before meals Metoprolol 25mg Tablet (metoprolol 25 mg oral tablet) ??25 mg, By Mouth, 3 times a day NaCl 0.9% Flush 3ml (NaCL 0.9% Flush) ??3 mL, IV Push, Every 8 hours Simvastatin 10 mg Tablet (simvastatin 10 mg oral tablet) ??10 mg, By Mouth, Daily at bedtime CONTINUOUS: (0) PRN: (12) Dextrose Inj Syringe (Dextrose 50% Inj Syringe (25Gm)) ??12.5 Gm, IV Push Slowly, Every 20 minutes Dextrose Inj Syringe (Dextrose 50% Inj Syringe (25Gm)) ??25 Gm, IV Push Slowly, Every 15 minutes Glucagon 1 mg Inj (Glucagon Inj) ??1 mg, Intramuscular, Once Glucose 40% Gel (15 Gm) (Glucose Gel) ??15 Gm, By Mouth, Every 20 minutes Glucose 40% Gel (15 Gm) (Glucose Gel) ??30 Gm, By Mouth, Every 20 minutes Melatonin 3 mg Tablet (Melatonin Tablet) ??3 mg, By Mouth, Daily at bedtime NaCl 0.9% Flush 3ml (NaCL 0.9% Flush) ??3 mL, IV Push, Every 8 hours Ondansetron 2mg/mL Inj (2mL Vial) (Ondansetron Inj) ??4 mg, IV Push Slowly, Every 30 minutes OxyCODONE 5 mg IR Tablet (oxyCODONE 5 mg oral tablet) ??2.5 mg, By Mouth, Every 6 hours Polyethylene Glycol 17 Gm Powder (MiraLax Powder) ??17 Gm 1 pack/packet, By Mouth, Daily Senna Tablet ??8.6 mg 1 tablet, By Mouth, 2 times a day Tizanidine 4 mg Tablet (tiZANidine 4 mg oral tablet) ??2 mg, By Mouth, 3 times a day ? Results Recent Labs BLOOD COUNT & DIFF WBC 8.6 k/mm3 ()?? 08/25/2024 00:29 RBC 3.52 m/mm3 (Low)?? 08/25/2024 00:29 Hgb 7.8 Gm/dL (Low)?? 08/25/2024 00:29 Hct 26.2 % (Low)?? 08/25/2024 00:29 MCV 74.4 femtoliters (Low)?? 08/25/2024 00:29 MCH 22.2 pg (Low)?? 08/25/2024 00:29 MCHC 29.8 Gm/dL (Low)?? 08/25/2024 00:29 Platelet Count 153 k/mm3 ()?? 08/25/2024 00:29 RDW-SD 48.3 femtoliters (High)?? 08/25/2024 00:29 MPV 10.8 femtoliters ()?? 08/25/2024 00:29 Nucleated RBC (Automated) 0.0 #/100 WBC'S ()?? 08/25/2024 00:29 Abs. NRBC 0.0 k/mm3 ()?? 08/25/2024 00:29 Abs. Neut 6.5 k/mm3 ()?? 08/25/2024 00:29 Abs. Lymph 1.0 k/mm3 ()?? 08/25/2024 00:29 Abs. [place] 1.0 k/mm3 ()?? 08/25/2024 00:29 Abs. Eo 0.1 k/mm3 ()?? 08/25/2024 00:29 Abs. Baso 0.0 k/mm3 ()?? 08/25/2024 00:29 Neut % 75.8 % ()?? 08/25/2024 00:29 Lymph % 11.3 % (Low)?? 08/25/2024 00:29 [place] % 11.2 % (High)?? 08/25/2024 00:29 Eos % 0.7 % ()?? 08/25/2024 00:29 Baso % 0.4 % ()?? 08/25/2024 00:29 Imm Gran 0.6 % ()?? 08/25/2024 00:29 Abs. Imm Gran 0.1 k/mm3 ()?? 08/25/2024 00:29 ?? CARDIAC High Sensitivity Troponin (HSTnT) 62 ng/L (Critical)?? 08/24/2024 02:18 ?? CHEM GENERAL Sodium 128 mmol/L (Low)?? 08/25/2024 00:29 Potassium 4.1 mmol/L ()?? 08/25/2024 00:29 Chloride 97 mmol/L (Low)?? 08/25/2024 00:29 Bicarbonate Level 16 mmol/L (Low)?? 08/25/2024 00:29 Anion Gap 15 mmol/L ()?? 08/25/2024 00:29 Glucose Level 156 mg/dL (High)?? 08/25/2024 00:29 Glucose, POC 197 mg/dL (High)?? 08/25/2024 05:22 Hemoglobin A1C (Monitoring) 9.7 % (High)?? 08/24/2024 02:18 BUN 36 mg/dL (High)?? 08/25/2024 00:29 Creatinine-Blood 2.80 mg/dL (High)?? 08/25/2024 00:29 Estimated GFR Creatinine 24 ML/MIN/1.73 M2 ()?? 08/25/2024 00:29 Calcium 7.8 mg/dL (Low)?? 08/25/2024 00:29 ?? URINE OTHER Est Creatinine Clearance 27.15 mL/min ()?? 08/25/2024 01:39 ? * Pravin Ye MD: PERFORM, SIGN, VERIFY Event Display: Consultation Note Authored Date: Patient: STACIA MIRANDA Age: 68 years Sex: Male : 1955 Associated Diagnoses: None Author: Pravin Ye MD ??[facility] Inpatient Nephrology Note ??Interval History Consult for CHARLENE / Hyponatremia Urine labs ordered. Full consult to follow Thank you for the courtesy of this consult, RTANE ??will continue monitoring the patient along withyou please do not hesitate to call us with any further questions Pravin Ye M.D. [facility] [address], [address] Note * Angel Quintanilla RN: PERFORM Event Display: Discharge/Transfer Note Hospital Authored Date: Nursing Discharge Note Entered On: 08/27/2024 15:21 EDT Performed On: 08/27/2024 15:20 EDT by Angel Quintanilla RN Nursing Discharge Note 2 Discharge Time : 08/27/2024 15:20 EDT Discharge Level of Care at Discharge : Home/[facility] Patient Left Unit Via : Wheelchair Patient Accompanied Off Unit with : Responsible adult DC Instructions Provided & Signed by Pt : Yes Patient Understands D/C Instructions : Yes Patient Instructions Discharge Signed : Yes Did Pt have Specialty Bed or Wound Vac : No Angel Quintanilla RN - 08/27/2024 15:20 EDT * Nayan RANDOLPH, Tamiko: PERFORM, MODIFY Event Display: Discharge/Transfer Note Hospital Authored Date: Patient: ??STACIA MIRANDA ? Age:??68 Years?Sex:??Male?:??1955?? Patient Information Discharge Location: Primary Care Physician: Not on Staff, PCP Admit Date/Time: 08/23/2024 16:02 Discharge Disposition Discharge Disposition: home Discharge Diagnosis Rapid atrial fibrillation (I48.91) General medical ([id number]) Anemia (D64.9) Chronic kidney disease (CKD) (N18.9) Type 2 diabetes mellitus (E11.9) Hypertension (I10) _ Discharge Medications Amlodipine (amLODIPine 10 mg oral tablet)??10 Milligram 1 tablet By Mouth Daily Amoxicillin-Clavulanate (amoxicillin-clavulanate 875 mg-125 mg oral tablet)??875 Milligram By Mouth2 times a day for 3 Days Durable Medical Equipment (Accu-Chek Judy Glucose Meter)??See Instructions check pocg 3 times a day before meals Durable Medical Equipment (Alcohol Pads)??See Instructions for 90 Days use as directed for Type 1 Diabetes Mellitus Durable Medical Equipment (Glucose Test Strips)??See Instructions check pocg 3 times a day before meals Durable Medical Equipment (Lancets)??See Instructions check pocg 3 times a day before meals Ferrous Fumarate (ferrous fumarate 325 mg oral tablet)??1 tab(s) 325 Milligram By Mouth Every Wednesday, Wednesday and Wednesday GlipiZIDE (glipiZIDE 5 mg oral tablet)??10 Milligram 2 tablet By Mouth 2 times a day Insulin Glargine (insulin glargine 100 units/mL subcutaneous solution)??32 unit(s) Subcutaneous Injection Daily at bedtime Metoprolol (metoprolol 25 mg oral tablet)??25 Milligram By Mouth 3 times a day for 90 Days Multivitamin (multivitamin Multiple Vitamins oral tablet)??1 tab(s) By Mouth Daily for 30 Days PEG Electrolyte Solution (Golytely - oral powder for reconstitution)??240 Milliliter By Mouth Every10 minutes until 4 liters are consumed or the rectal effluent is clear Simvastatin (simvastatin 10 mg oral tablet)??10 Milligram 1 tablet By Mouth Daily at bedtime ? Allergies Allergies ?(Active and Proposed Allergies Only) Indocin? (Severity: Unknown severity, Onset: Unknown) ? Hospital Course ??68-year-old male with past medical history significant for type II DM, HTN, HPL, alcohol use disorder with history of alcohol related cirrhosis, CKD stage III who was recently hospitalized with concern melanotic stools and discharged after transfusion for an outpatient EGD/colonoscopy, brought infor elective/outpatient procedure and found to have A-fib with RVR with rates 120s, furthermore developed acute kidney injury, type II NSTEMI/demand ischemia in setting of A-fib, moderate MR, hyponatremia and uncontrolled blood sugars (bids consulted to help comanage diabetes with new insulin), hospital course further complicated by worsening renal failure??suspected to be in setting of contrast n ephropathy??and hyponatremia. ??CHARLENE is improving. ?? During A-fib, his heart rate is controlled. ??He was planned to have inpatient EGD and colonoscopy??before starting on anticoagulation due to an episode of ???melanotic stool. ??Patient has not had any??overt bloody stool otherwise and his h/h is fairly stable??otherwise. Egd/colonoscopy??was tentatively scheduled for tomorrow. ??However patient wants to go home??today and wants to come back??as outpatient to do the EGD and colonoscopy. ??GI team agrees with it and they can schedule for outpatient EGD and colonoscopy??very soon. ??Till that time patient will have to hold off on anticoagulation. patient's daughter, Deyanira is a nurse at [employer] and she is aware of her father's choice, she is going to help him with his appointments ? Objective Assessment and Plan ?? Rapid atrial fibrillation (I48.91) Patient with new onset A-fib RVR Echo with dilated LA,??moderate MR Continue on metoprolol??25 3 times daily.? [facility]??cardiology requested to set up an appointment with the patient ?? Anemia (D64.9) now egd/colonosocpy as outpatient on patient's request GI in agreement patient's daughter, Deyanira is a nurse at [employer] and she is aware of her father's choice, she is going to help him with his appointments GI fellow production aide is going to set up the appointment for him ?? Chronic kidney disease (CKD) (N18.9) Acute kidney injury on CKD Patient has baseline stage III CKD with creatinine 1.2???1.4. Initially started on IV fluid for concern of hypovolemia.?? Kidney function continues to uptrend despite fluids. Patient also received contrast for CT angio on 08/23.?? Likely could have developed contrast-inducednephropathy. iv fluids per renal improving charlene ?? Hyponatremia: likely hypovolemia related looking at??urine na <20 and urine osmo ~ 300s ?? Hypertension (I10) History of hypertension however patient has had normal blood pressure here. ??Holding antihypertensives ?? Type 2 diabetes mellitus (E11.9) Patient is normally on glipizide??and Jardiance??at home.Significantly elevated blood sugars in 400s HbA1c 9.7 Newly started on insulin Lantus 32 units??at bedtime Continue glipizide 10 mg??twice daily before breakfast and dinner ?? Upper back pain-??overall improving ? Boil on right upper back Seems like an infected sebaceous cyst on augmentin Measurements?? Height: 180 cm (08/27/24) Weight: 99.5 kg (08/27/24) Dry Weight: 97.5 kg (08/25/24) Body Mass Index:??30.71 kg/m2??Critical (08/27/24) ? Vital Signs?? Temperature: 98 DegF (08/27/24 07:59:00) Temperature Route: Oral (08/27/24 07:59:00) Pulse Rate:??105 bpm??High (08/27/24 08:41:00) Respiratory Rate: 18 br/min (08/27/24 07:59:00) Systolic Blood Pressure: 109 mm Hg (08/27/24 08:41:00) Diastolic Blood Pressure: 70 mm Hg (08/27/24 08:41:00) Blood pressure sites: Arm, right (08/27/24 07:59:00) Mean Arterial Pressure: 83 mm Hg (08/27/24 07:59:00) Pulse Pressure: 39 mm Hg (08/27/24 07:59:00) Oxygen Saturation: 96 % (08/27/24 07:59:00) Liters per Minute: 2 L/min (08/27/24 02:16:00) Mode of Delivery (Oxygen): Room air (08/27/24 07:59:00) Early Warning Score: 5 (08/27/24 08:46:45) ? Pain Scores 1 - 10 Pain Scale Score: 5 (22:10) ?? Intake/Output? 08/23 16:02 08/27 07:00 08/26 07:00 08/25 07:00 08/24 07:00 ?? 08/27 12:10 08/27 12:10 08/27 06:59 08/26 06:59 08/25 06:59 Intake ? 2115 ?0 ? 1345 ?470 ?300 Output ?0 ?0 ?0 ?0 ?0 Net Total ? 2115 ?0 ? 1345 ?470 ?300 ? Urine Count ?6 ?0 ?2 ?4 ?0 ? Mobility & Ambulation Level Mobility & Ambulation Level Activity Assistance: Independent (08/26/24) Activity Status ADL: Up ad mor (08/26/24) Ambulation Patient Effort: Good (08/25/24) Ambulation Patient Response: Tolerated well (08/25/24) Ambulatory devices needed: None (08/26/24) ?? . Physical Exam Alert, awake, comfortable Pallor present, icterus absent Clear breath sounds, no wheezing or crackles Normal S1, S2, no murmur Abdomen soft, nontender Extremities with pitting edema Pending Results Add On Lab Order ordered on 08/23/2024 Add On Lab Order ordered on 08/24/2024 Add On Lab Order ordered on 08/25/2024 Add On Lab Order ordered on 08/26/2024 Type and Screen ordered on 08/26/2024 Type and Screen ordered on 08/27/2024 Follow-Up Appointments Added Follow Up ?Time Frame ?Comments Not on Staff, PCP?1 week: call to discuss follow up visit Patient Instructions stop lisinopril for now, till your renal function improves ?? Start taking??insulin Lantus 32 units??subcutaneous injection at bedtime. Take glipizide 10 mg before breakfast and 10 mg before dinner. ?? Start taking metoprolol 25 mg 3 times a day. ?? Follow-up with your primary care physician in??3 to 5 days to have CBC and??renal function repeated. ?? You should receive a call from GI??at [facility] for EGD and colonoscopy.?If you do not hear from them in 1 to 2 days, please call??[facility] facility and confirm the appointment. ?? Once done with EGD and colonoscopy follow-up with??your PCP/cardiology to start on anticoagulation for atrial fibrillation. ?? If you notice bleeding in your stool??or dark melanotic stool??or??palpitation??or dizziness,??please seek medical attention. Post Discharge Care Discharge ?08/27/24 12:09:00 EDT ?Order Comment:?? Home Health Face to Face ^[email or web address] Results Discharge Labs BLOOD BANK Blood Type AB Positive ()?? 08/26/2024 13:56 Antibody Screen Negative ()?? 08/26/2024 13:56 ?? BLOOD COUNT & DIFF WBC 6.6 k/mm3 ()?? 08/27/2024 00:05 RBC 3.51 m/mm3 (Low)?? 08/27/2024 00:05 Hgb 7.8 Gm/dL (Low)?? 08/27/2024 00:05 Hct 25.8 % (Low)?? 08/27/2024 00:05 MCV 73.5 femtoliters (Low)?? 08/27/2024 00:05 MCH 22.2 pg (Low)?? 08/27/2024 00:05 MCHC 30.2 Gm/dL (Low)?? 08/27/2024 00:05 Platelet Count 149 k/mm3 (Low)?? 08/27/2024 00:05 RDW-SD 47.6 femtoliters (High)?? 08/27/2024 00:05 MPV 10.2 femtoliters ()?? 08/27/2024 00:05 Nucleated RBC (Automated) 0.0 #/100 WBC'S ()?? 08/27/2024 00:05 Abs. NRBC 0.0 k/mm3 ()?? 08/27/2024 00:05 Abs. Neut 4.6 k/mm3 ()?? 08/26/2024 00:35 Abs. Lymph 0.6 k/mm3 (Low)?? 08/26/2024 00:35 Abs. [place] 0.6 k/mm3 ()?? 08/26/2024 00:35 Abs. Eo 0.1 k/mm3 ()?? 08/26/2024 00:35 Abs. Baso 0.0 k/mm3 ()?? 08/26/2024 00:35 Neut % 77.3 % (High)?? 08/26/2024 00:35 Lymph % 10.8 % (Low)?? 08/26/2024 00:35 [place] % 10.1 % ()?? 08/26/2024 00:35 Eos % 0.8 % ()?? 08/26/2024 00:35 Baso % 0.5 % ()?? 08/26/2024 00:35 Imm Gran 0.5 % ()?? 08/26/2024 00:35 Abs. Imm Gran 0.0 k/mm3 ()?? 08/26/2024 00:35 ?? CARDIAC High Sensitivity Troponin (HSTnT) 62 ng/L (Critical)?? 08/24/2024 02:18 ? CHEM GENERAL Sodium 131 mmol/L (Low)?? 08/27/2024 00:05 Potassium 3.3 mmol/L (Low)?? 08/27/2024 00:05 Chloride 96 mmol/L (Low)?? 08/27/2024 00:05 Bicarbonate Level 17 mmol/L (Low)?? 08/27/2024 00:05 Anion Gap 18 mmol/L (High)?? 08/27/2024 00:05 Glucose Level 175 mg/dL (High)?? 08/27/2024 00:05 Glucose, POC 265 mg/dL (High)?? 08/27/2024 08:25 Hemoglobin A1C (Monitoring) 9.7 % (High)?? 08/24/2024 02:18 Beta Hydroxybutyrate 0.11 mmol/L ()?? 08/26/2024 00:35 BUN 37 mg/dL (High)?? 08/27/2024 00:05 Creatinine-Blood 1.93 mg/dL (High)?? 08/27/2024 00:05 Estimated GFR Creatinine 37 ML/MIN/1.73 M2 ()?? 08/27/2024 00:05 Osmolality 282 mOs/kg ()?? 08/25/2024 00:29 Calcium 8.2 mg/dL (Low)?? 08/27/2024 00:05 Magnesium 1.8 mg/dL ()?? 08/23/2024 09:53 Protein, Total 7.0 Gm/dL ()?? 08/23/2024 09:53 Albumin 3.9 Gm/dL ()?? 08/23/2024 09:53 AG Ratio 1.3 ()?? 08/23/2024 09:53 Alkaline Phosphatase 94 units/L ()?? 08/23/2024 09:53 AST (SGOT) 16 units/L ()?? 08/23/2024 09:53 ALT (SGPT) 17 units/L ()?? 08/23/2024 09:53 Bilirubin, Total 0.6 mg/dL ()?? 08/23/2024 09:53 ?? COAG INR 1.3 (High)?? 08/23/2024 09:53 Protime (PT) 13.0 seconds (High)?? 08/23/2024 09:53 D-Dimer 0.84 mg/L FEU ()?? 08/23/2024 09:53 ? ENDOCRINE/TUMOR MARKER TSH 1.23 uIU/mL ()?? 08/23/2024 09:53 ? UA/URINALYSIS Appear/Color, Urine LIGHT YELLOW ()?? 08/25/2024 10:13 Specific [place], Urine 1.022 ()?? 08/25/2024 10:13 pH, Urine 5.5 ()?? 08/25/2024 10:13 Albumin, Urine 1+ (Abnormal)?? 08/25/2024 10:13 Glucose, Urine NEGATIVE ()?? 08/25/2024 10:13 Ketones, Urine NEGATIVE ()?? 08/25/2024 10:13 Bilirubin, Urine NEGATIVE ()?? 08/25/2024 10:13 Hemoglobin, Urine NEGATIVE ()?? 08/25/2024 10:13 Nitrite, Urine NEGATIVE ()?? 08/25/2024 10:13 Leukocyte, Urine NEGATIVE ()?? 08/25/2024 10:13 Urobilinogen NORMAL mg/dL ()?? 08/25/2024 10:13 WBC's, Urine <1 /HPF ()?? 08/25/2024 10:13 RBC's, Urine <1 /HPF ()?? 08/25/2024 10:13 Bacteria SLIGHT HPF (Abnormal)?? 08/25/2024 10:13 Hyaline Cast 4 LPF (High)?? 08/25/2024 10:13 Mucus SLIGHT /LPF ()?? 08/25/2024 10:13 Hold Urine Culture Testing available 48 hours from time of collection. ()?? 08/25/2024 10:13 ? URINE OTHER Creatinine, Urine Random 144.7 mg/dL ()?? 08/25/2024 10:13 Sodium, Urine Random <20 mmol/L ()?? 08/25/2024 10:13 Chloride, Urine Random <20 mmol/L ()?? 08/25/2024 10:13 Urea Nitrogen, Urine Random 442.8 mg/dL ()?? 08/25/2024 10:13 Osmolality, Urine Random 388 mOsm/kg ()?? 08/25/2024 10:13 Protein, Total Urine Random 31 mg/dL ()?? 08/25/2024 10:13 TP/Cr Ratio 0.21 (High)?? 08/25/2024 10:13 Uric Acid, Urine Random 15.8 mg/dL ()?? 08/25/2024 10:13 Creatinine, Urine 144.7 mg/dL ()?? 08/25/2024 10:13 Est Creatinine Clearance 39.40 mL/min ()?? 08/27/2024 00:44 ? 35_ minutes spent on discharge * Angel Quintanilla RN: PERFORM Event Display: Discharge/Transfer Note Hospital Authored Date: [id number] Discharge Planning Nursing Entered On: 08/27/2024 8:22 EDT Performed On: 08/27/2024 8:22 EDT by Angel Quintanilla RN Discharge Planning Nursing Anticipated discharge : Home Angel Quintanilla RN - 08/27/2024 8:22 EDT Indicator(s) for VNA/Home Care Services Able to safely function at home Able to safely ambulate at home : Yes Able to safely function at home : Yes Able to obtain meds: fill prescriptions : Yes Understands home medications : Yes Has food available at home : Yes Able to prepare/obtain meals : Yes Able to arrange transportation home : Yes Able to gain entry into home : Yes Exhibits impaired orientation : Yes Exhibits impaired comprehension : Yes Exhibits impaired judgement : Yes Caregiver willing to support patient : Yes Caregiver available to support patient : Yes Caregiver capable to support patient : Yes Angel Quintanilla RN - 08/27/2024 8:22 EDT * Angel Quintanilla RN: PERFORM Event Display: Patient Education/Instruction Authored Date: [id number] Inpatient Adult Discharge Instructions. [address] [address] Name: STACIA MIRANDA : 1955?? Visit: 08/23/2024 16:02?? Current Date: 08/27/2024 12:44 ?? Account: [id number]?? Inpatient Adult Discharge Instructions We would like to thank you for allowing us to assist you with your healthcare needs. The following includes patient education materials and information regarding your injury/illness. Our entire staffstrives to provide an excellent experience for our patients and their families. PLEASE ENSURE YOU FOLLOW-UP PER THE INSTRUCTIONS BELOW! ?? YOUR OPINION IS IMPORTANT TO US! Please complete the survey you may receive by mail or email. Your feedback will be used to make improvements to the healthcare experiences of our patients and their families. Surveys are administered by [employer] ?? If further treatment with your primary care physician or another doctor is recommended, it is important for you to keep the appointment. Call your primary care physician or return to the Emergency Department immediately if your condition worsens, fails to improve, or new symptoms develop. If you need to find a doctor, you can call [facility] Link for a referral at [phone] or toll free at [phone] ([phone]) or log in to [email or web address].. ?? [facility], in keeping with [facility] guidance, no longer requires face masks for staff, patientsor visitors in most situations. Similiar to time spent indoors at other locations, there is the chance that you were exposed to repiratory viruses during your time with us (such as flu or COVID-19). If you develop symptoms concerning for a viral respiratory infection, please seek testing (and treatment if indicated) from your medical provider or home test kit. ?? You can view and manage your care through the patient portal or by using a health care talya of your choosing. [employer] is a website that allows you to securely view your medical information including your hospital discharge summary, office visit summaries, medications and follow-up visits. You can also request appointments, renew medications, and request access to your medical information using a health care talya of your choosing, or just ask a question. You are entitled to know the individuals who participated in your treatment. This information is available within your medical record and will be provided upon your request. You can enroll at [email or web address] or register d uring your next office visit. You have been discharged from [facility], Patient Care Unit: M5??. If you have any questions regarding these instructions, including results of studies pending, afteryou leave, please call us and we will be happy to assist you 02/11. [facility] Your Care Team Attending Physician Tamiko Spicer MD?? Consulting Providers Tamiko Spicer MD?? Discharging Providers Tamiko Spicer MD Reason for Your Visit Noted to have atrial fibrillation with heart rate in the 110s to 120s.?? Your Diagnosis Rapid atrial fibrillation Anemia Chronic kidney disease (CKD) General medical Hypertension Type 2 diabetes mellitus Tests Performed Below is a partial list of the tests performed during your hospitalization. You may have had other tests and procedures not included in this list. Please discuss all test results with your provider. Basic Metabolic Panel BETA HYDROXYBUTYRATE CBC CBC w/ Differential Chloride Urine Comprehensive Metabolic Panel Creatinine Urine D-DIMER Electrolytes GLUCOSE POC HEMOGLOBIN A1C High??Sensitivity??Troponin T HOLD URINE CULTURE INR Magnesium Level OSMOLALITY, SERUM Troponin T, High Sensitivity TSH with T4 Reflex (Adults Only) UA UREA NITROGEN, URINE MG/DL Urine Osmolality Urine Protein/Creatinine Ratio Urine Sodium Urine Uric Acid CT Angio Chest XR Chest Portable Add On Lab Order?? Basic Metabolic Panel?? Beta Hydroxybutyrate?? CBC?? CBC w/ Differential?? CT Angio Chest?? Chloride Urine?? Complete Urinalysis (UA)?? Comprehensive Metabolic Panel?? Creatinine Urine?? D Dimer (D-DIMER)?? Electrolytes?? Glucose POC?? Hemoglobin A1C (Monitoring) (HEMOGLOBIN A1C)?? High??Sensitivity??Troponin T (Troponin T, High Sensitivity)?? Hold Urine Culture?? INR?? Magnesium Level?? Osmolality (OSMOLALITY, SERUM)?? Osmolality Urine (Urine Osmolality)?? Protein/Creatinine Ratio Urine (Urine Protein/Creatinine Ratio)?? Sodium Urine (Urine Sodium)?? TSH with T4 Reflex (Adults Only)?? Type and Screen?? Urea Nitrogen Urine (UREA NITROGEN, URINE MG/DL)?? Uric Acid Urine (Urine Uric Acid)?? Chest Portable (XR Chest Portable)?? Primary Care Provider Not on Staff, PCP?? Advance Directive Health Care Proxy on File Yes - Health Care Proxy Discharge Vitals Temperature: 98 DegF Height: 180 cm Pulse Rate:??105 bpm??High Weight: 99.5 kg Respiratory Rate: 18 br/min Body Mass Index:??30.71 kg/m2??Critical Systolic Blood Pressure: 109 mm Hg Body surface area: 2.23 Diastolic Blood Pressure: 70 mm Hg ?? Oxygen Saturation: 96 % ?? Studies Pending All studies ordered during this hospital stay have been completed unless listed below. Please discuss all pending results with your provider listed above in these instructions. ?? Add On Lab Order?? Type and Screen?? What to do next Instructions From Your Doctor stop lisinopril for now, till your renal function improves ?? Start taking??insulin Lantus 32 units??subcutaneous injection at bedtime. Take glipizide 10 mg before breakfast and 10 mg before dinner. ?? Start taking metoprolol 25 mg 3 times a day. ?? Follow-up with your primary care physician in??3 to 5 days to have CBC and??renal function repeated. ?? You should receive a call from GI??at [facility] for EGD and colonoscopy.?If you do not hear from them in 1 to 2 days, please call??[facility] facility and confirm the appointment. ?? Once done with EGD and colonoscopy follow-up with??your PCP/cardiology to start on anticoagulation for atrial fibrillation. ?? If you notice bleeding in your stool??or dark melanotic stool??or??palpitation??or dizziness,??please seek medical attention. ?? Orders? 08/27/24 12:09:00 EDT?? You Need to Schedule the Following Appointments Follow Up with??Not on Staff, PCP When:??Within 1 week: call to discuss follow up visit Discharge Medications STACIA MIRANDA :1955 Visit Date:08/23/2024 Medications: Please continue your medications until treatment is completed or stopped by your provider. Medications not listed below should be discontinued. Discuss any questions related to medications with your provider. What How Much When Instructions Next Dose New Amoxicillin-Clavulanate (amoxicillin-clavulanate 875 mg-125 mg oral tablet) 875 Milligram Oral Twice a day Duration: 3 Days Pickup at [address] 08/27 New Durable Medical Equipment (Accu-Chek Judy Glucose Meter) See instructions check pocg 3 times a day before meals ?? Pickup at [place] [address] New Durable Medical Equipment (Alcohol Pads) See instructions Duration: 90 Days Refills: 2 use as directed for Type 1 Diabetes Mellitus ?? Pickup at [place] [address] New Durable Medical Equipment (Glucose Test Strips) See instructions check pocg 3 times a day before meals ?? Pickup at [place] [address] New Durable Medical Equipment (Lancets) See instructions check pocg 3 times a day before meals ?? Pickup at [place] [address] New Durable Medical Equipment (Pen [place], 29 G x 12.7 mm BD Ultra Fine) See instructions Duration: 90 Days Refills: 5 administer insulin at bedtime ?? Pickup at [place] [address] New Insulin Glargine (insulin glargine 100 units/ mL subcutaneous solution) 32 unit(s) Subcutaneous Injection Daily at Bedtime Pickup at [place] [address] New Metoprolol (metoprolol 25 mg oral tablet) 25 Milligram Oral 3 times a day Duration: 90 Days Pickup at [address] 08/27 Unchanged Amlodipine (amLODIPine 10 mg oral tablet) 1 tab(s) Oral Daily Tomorrow AM 08/28 Unchanged Ferrous Fumarate (ferrous fumarate 325 mg oral tablet) 1 tab(s) Oral Wednesday, Wednesday and Wednesday Resume home schedule Unchanged GlipiZIDE (glipiZIDE 5 mg oral tablet) 2 tab(s) Oral Twice a day Resume Unchanged Multivitamin (multivitamin Multiple Vitamins oral tablet) 1 tab(s) Oral Daily Duration: 30 Days Resume Unchanged PEG Electrolyte Solution (Golytely - oral powder for reconstitution) 240 Milliliter Oral Every 10 minutes until 4 liters are consumed or the rectal effluent is clear ?? n/a Unchanged Simvastatin (simvastatin 10 mg oral tablet) 1 tab(s) Oral Daily at Bedtime [facility] 08/27 Pharmacy Information [facility]: [address] [place] [address] [phone] ?? What How Much When Comments Stop Taking empagliflozin (Jardiance 25 mg oral tablet) 1 tab(s) Oral Daily in the morning Stop Taking Lisinopril (lisinopril 2.5 mg oral tablet) 1 tab(s) Oral Daily Prescription Given During Visit Amoxicillin-Clavulanate (amoxicillin-clavulanate 875 mg-125 mg oral tablet) - 875 mg, By Mouth, 2 times a day, # 5 tablet, 0 Refills, [place] [address], [address] [place] [address] [phone]?? Durable Medical Equipment (Pen [place], 29 G x 12.7 mm BD Ultra Fine) - , # 300 each, 5 Refills, administer insulin at bedtime, [place] [address] [phone]?? Durable Medical Equipment (Accu-Chek Judy Glucose Meter) - , # 1 each, check pocg 3 times a day before meals, [place] [address] [phone]?? Durable Medical Equipment (Alcohol Pads) - , # 600 each, 2 Refills, use as directed for Type 1 Diabetes Mellitus, [place] [address] [phone]?? Durable Medical Equipment (Lancets) - , # 200 each, check pocg 3 times a day before meals, [address] [address] [phone]?? Durable Medical Equipment (Glucose Test Strips) - , # 200 each, check pocg 3 times a day before meals, [place] [address] [phone]?? Insulin Glargine (insulin glargine 100 units/mL subcutaneous solution) - 32 units, Subcutaneous Injection, Daily at bedtime, # 15 mL, 0 Refills, [address] [address] [phone]?? Metoprolol (metoprolol 25 mg oral tablet) - 25 mg, By Mouth, 3 times a day, # 270 tablet, 0 Refills, [address] [address] [phone]?? Laboratory Results Below is a partial list of the most recent Laboratory test results done prior to this discharge. You may have had other tests and procedures not included in this list. Please discuss all test resultswith your provider. Est Creatinine Clearance - 39.40 mL/min (08/27/2024) Basic Metabolic Panel (08/27/2024) ???Sodium - 131 mmol/L???Potassium - 3.3 mmol/L???Chloride - 96 mmol/L???Bicarbonate Level - 17 mmol/L???Anion Gap - 18 mmol/L???Glucose Level - 175 mg/dL???BUN - 37 mg/dL???Creatinine-Blood - 1.93 mg/dL???Estimated GFR Creatinine - 37 ML/MIN/1.73 M2???Calcium - 8.2 mg/dL BETA HYDROXYBUTYRATE (08/26/2024) ???Beta Hydroxybutyrate - 0.11 mmol/L CBC (08/27/2024) ???WBC - 6.6 k/mm3???RBC - 3.51 m/mm3???Hgb - 7.8 Gm/dL???Hct - 25.8 %???MCV - 73.5 femtoliters???MCH - 22.2 pg???MCHC - 30.2 Gm/dL???Platelet Count - 149 k/mm3???RDW-SD - 47.6 femtoliters???MPV - 10.2 femtoliters???Nucleated RBC (Automated) - 0.0 #/100 WBC'S???Abs. NRBC - 0.0 k/mm3 CBC w/ Differential (08/26/2024) ???WBC - 5.9 k/mm3???RBC - 3.23 m/mm3???Hgb - 7.1 Gm/dL???Hct - 23.9 %???MCV - 74.0 femtoliters???MCH - 22.0 pg???MCHC - 29.7 Gm/dL???Platelet Count - 133 k/mm3???RDW-SD - 48.2 femtoliters???MPV - 10.9 femtoliters???Nucleated RBC (Automated) - 0.0 #/100 WBC'S???Abs. NRBC - 0.0 k/mm3???Abs. Neut - 4.6 k/mm3???Abs. Lymph - 0.6 k/mm3???Abs. [place] - 0.6 k/mm3???Abs. Eo - 0.1 k/mm3???Abs. Baso - 0.0 k/mm3???Neut % - 77.3 %???Lymph % - 10.8 %???[place] % - 10.1 %???Eos % - 0.8 %???Baso % - 0.5 %???Imm Gran - 0.5 %???Abs. Imm Gran - 0.0 k/mm3 Chloride Urine (08/25/2024) ? ?Chloride, Urine Random - <20 mmol/L Comprehensive Metabolic Panel (08/23/2024) ???Sodium - 135 mmol/L???Potassium - 4.3 mmol/L???Chloride - 100 mmol/L???Bicarbonate Level - 18 mmol/L???Anion Gap - 17 mmol/L???Glucose Level - 487 mg/dL???BUN - 15 mg/dL???Creatinine-Blood - 1.47 mg/dL???Estimated GFR Creatinine - 52 ML/MIN/1.73 M2???Calcium - 8.6 mg/dL???Protein, Total - 7.0 Gm/ dL???Albumin - 3.9 Gm/dL???AG Ratio - 1.3???Alkaline Phosphatase - 94 units/L???AST (SGOT) - 16 units/L???ALT (SGPT) - 17 units/L???Bilirubin, Total - 0.6 mg/dL Creatinine Urine (08/25/2024) ???Creatinine, Urine Random - 144.7 mg/dL D-DIMER (08/23/2024) ???D-Dimer - 0.84 mg/L FEU Electrolytes (08/24/2024) ???Sodium - 128 mmol/L???Potassium - 4.1 mmol/L???Chloride - 96 mmol/L???Bicarbonate Level - 17 mmol/L???Anion Gap - 15 mmol/L GLUCOSE POC (08/27/2024) ???Glucose, POC - 157 mg/dL HEMOGLOBIN A1C (08/24/2024) ???Hemoglobin A1C (Monitoring) - 9.7 % High??Sensitivity??Troponin T (08/23/2024) ???High Sensitivity Troponin (HSTnT) - 44 ng/L HOLD URINE CULTURE (08/25/2024) ???Hold Urine Culture - Testing available 48 hours from time of collection. INR (08/23/2024) ???INR - 1.3???Protime (PT) - 13.0 seconds Magnesium Level (08/23/2024) ???Magnesium - 1.8 mg/dL OSMOLALITY, SERUM (08/25/2024) ???Osmolality - 282 mOs/kg Troponin T, High Sensitivity (08/24/2024) ???High Sensitivity Troponin (HSTnT) - 62 ng/L TSH with T4 Reflex (Adults Only) (08/23/2024) ???TSH - 1.23 uIU/mL UA (08/25/2024) ???Appear/Color, Urine - LIGHT YELLOW???Specific [place], Urine - 1.022???pH, Urine - 5.5???Albumin, Urine - 1+???Glucose, Urine - NEGATIVE???Ketones, Urine - NEGATIVE???Bilirubin, Urine - NEGATIVE???Hemoglobin, Urine - NEGATIVE???Nitrite, Urine - NEGATIVE???Leukocyte, Urine - NEGATIVE???Urobilinoge n - NORMAL? ?WBC's, Urine - <1 /HPF? ?RBC's, Urine - <1 /HPF? ?Bacteria - SLIGHT? ?Hyaline Cast - 4 LPF???Mucus - SLIGHT UREA NITROGEN, URINE MG/DL (08/25/2024) ???Urea Nitrogen, Urine Random - 442.8 mg/dL Urine Osmolality (08/25/2024) ???Osmolality, Urine Random - 388 mOsm/kg Urine Protein/Creatinine Ratio (08/25/2024) ???Protein, Total Urine Random - 31 mg/dL???TP/Cr Ratio - 0.21???Creatinine, Urine - 144.7 mg/dL Urine Sodium (08/25/2024) ? ?Sodium, Urine Random - <20 mmol/L Urine Uric Acid (08/25/2024) ???Uric Acid, Urine Random - 15.8 mg/dL You will be contacted within 72 hours with your results. Allergies (NKA means No Known Allergies) Indocin Problems Active Problems??(14) Alcohol abuse?? COVID-19?? COVID-19?? DM (diabetes mellitus), type 2?? Elevated LFTs?? Gout?? HF (heart failure)?? HLD (hyperlipidemia)?? HTN (hypertension)?? Marijuana use?? Mitral regurgitation?? OA (osteoarthritis) of knee?? Obese class I?? Tobacco abuse?? Education Materials Below is the list of Educational Leaflet Providered with your Discharge Instructions. Valuables and Belongings I fully understand and agree that [facility] accepts no responsibility for all my personal property including clothing, toilet articles, radios, jewelry, dentures, hearing aids, rings, money, or any other property that is in my possession or is brought to me after admission. I understand certain valuables may be placed in a hospital safe for a short period of time. I understand that the hospital is not liable for loss or damage due to accident, fire, or other natural occurrence while said property is in the safe. I accept full responsibility for any personal property that I keep with me, and will not hold the hospital responsible in case of loss or disappearance. I acknowledge that i have been encouraged to send valuables and belongings home. ?? Review of Valuable and Belonging List: With patient Date for Pt to Sign Valuables/Belongings: 08/25/24 18:31:00 ?? Other Discharge Information ? Pulmonary Rehab Status?? Pulmonary Rehab Discharge Status?? Respiratory Rate: 18 br/min ? Common Emergency Awareness Tips IS IT A STROKE? Act FAST and Check for these signs: FACE Does the face look uneven? ARM Does one arm drift down? SPEECH Does their speech sound strange? TIME Call at any sign of stroke ?? Heart Attack Signs Chest discomfort: Most heart attacks involve discomfort in the center of the chest and lasts more than a few minutes, or goes away and comes back. It can feel like uncomfortable pressure, squeezing, fullness or pain. Discomfort in upper body: Symptoms can include pain or discomfort in one or both arms, back, neck, jaw or stomach. Shortness of breath: With or without discomfort. Other signs: Breaking out in a cold sweat, nausea, or lightheaded. Remember, MINUTES DO MATTER. If you experience any of these heart attack warning signs, call to get immediate medical attention! ?? Smoking can increase your chances of developing chronic health problems and can cause harmful effects to other family members in your house. If you smoke, you are strongly encouraged to quit. Please call [facility] Link at [phone] or [phone] ([phone]) or log in to [email or web address] for referrals to smoking cessation programs. ?? 765 Suicide & Crisis Lifeline is available 02/11 if you or someone you know needs to find a reason to keep living. By calling 641 you'll be connected to a skilled, trained counselor at a crisis center in your area. INPATIENT DISCHARGE INSTRUCTIONS SIGNATURE PAGE STACIA MIRANDA [facility]:[id number] Location:[facility] Registration Date and Time:08/23/2024 16:02 EDT Primary Care Physician: Not on Staff, PCP Attending Physician: Nayan RANDOLPH, [facility], I STACIA MIRANDA, have received the above patient education materials/instructions and have verbalized understanding. If ambulance or transport services are being used I further acknowledge being given a choice of service. ?? If you need to contact me, please call me at this number: . Patient/Carrier Operator Name: Patient/Carrier Operator Signature: Relationship to Patient: Witness Name/Signature: Date: * Angel Quintanilla RN: PERFORM Event Display: Patient Education Leaflets Authored Date: [id number] Diabetes Management: Injecting Insulin ?? Diabetes Management: Injecting Insulin - Video For some people with diabetes, insulin injections become a part of daily life. Shukri Shirley MD, FACE, explains how insulin works and why it's so important. To view the video go to this web address: [email or web address] Or, scan this QR code with your smart phone ?? [employer]. All rights reserved. This information is not intended as a substitute for professional medical care. Always follow your healthcare professional's instructions. ?? * Angel Quintanilla RN: PERFORM Event Display: Patient Education Leaflets Authored Date: [id number] Giving Yourself an Insulin Shot ?? 39014 Giving Yourself an Insulin Shot Nont-uu-Waqb ?? Last Reviewed Date: 2021 00:00:00 ?? [employer]. All rights reserved. This information is not intended as a substitute for professional medical care. Always follow your healthcare professional's instructions. ?? * Angel Quintanilla RN: PERFORM Event Display: Patient Education Leaflets Authored Date: [id number] Giving Yourself an Insulin Shot ?? 33584 Giving Yourself an Insulin Shot Oswf-db-Lnab ?? Last Reviewed Date: 2021 00:00:00 ?? [employer]. All rights reserved. This information is not intended as a substitute for professional medical care. Always follow your healthcare professional's instructions. ?? Patient Care team information Care Team Personnel Name: Laura Beltrán RN Position: [facility] RN Member Role: Primary Care Nurse Name: Astrid Lainez RN Position: [facility] RN Member Role: Primary Care Nurse Name: Estella Gomez RN Position: [facility] RN Member Role: Primary Care Nurse Name: Traci Mccrary RN Position: [facility] RN Member Role: Primary Care Nurse Name: Lary Kendall RN Position: [facility] RN Member Role: Primary Care Nurse Name: Not on Staff, PCP Position: [facility] Physician (General Medicine) Member Role: PCP Name: Pravin Ye MD Position: [facility] Renal MD Member Role: [employer] Consulting Physician Address: [address] [place] [address] [address] [facility] [address] Telecom: Name: Minerva Vieira RN Position: [facility] RN Member Role: Primary Care Nurse Care Team Related Persons Name: DIEGO MIRANDA Insurance Providers Guarantor name: [employer] Plan Information #: 1 Payer: [employer] Member Number: [id number] Policy Number: CATA Group Number: [id number] Health Plan Information #: 2 Payer: [employer] Member Number: [id number] Policy Number: CATA Group Number: [id number]
--- OUTSIDE RECORDS SUMMARY | 2024-08-30 10:10 | XMS_ITS | Clinical Summary ---
Author Organization [facility] Address [address] [place] [address] Care Team Providers Care Health Editor Name Role Phone Martin Fitch MD Primary Care Provider [phone] Allergies Active Allergy Reactions Criticality Noted Date Comments Indomethacin 08/29/2020 Vancomycin 08/29/2020 Medications Medication Sig Dispensed Refills Start Date End Date Status ascorbic acid (VITAMIN C) 500 MG tablet Take 500 mg by mouth daily. 0 Active carvedilol (COREG) 25 MG tablet Take 25 mg by mouth 2 (two) times a day with meals. 0 Active furosemide (LASIX) 40 MG tablet Take 40 mg by mouth 2 (two) times a day. 0 Active lisinopril (PRINIVIL,ZESTRIL) tablet 10 mg Take 10 mg by mouth daily. 0 Active glipiZIDE (GLUCOTROL XL) ER 24 hr tablet 5 mg Take 5 mg by mouth daily. 0 Active metFORMIN (GLUCOPHAGE) tablet 500 mg Take 500 mg by mouth 2 (two) times a day with meals. 0 Active simvastatin (ZOCOR) tablet 20 mg Take 20 mg by mouth every night at bedtime. 0 Active amLODIPine (NORVASC) tablet 10 mg Take 10 mg by mouth daily. 0 Active allopurinol (ZYLOPRIM) 100 MG tablet Take 100 mg by mouth daily. 0 Active Active Problems Problem Noted Date Diagnosed Date Iron deficiency anemia due to chronic blood loss 09/02/2020 Anemia due to stage 3 chronic kidney disease Social History Tobacco Use Types Packs/Day Years Used Date Smoking Tobacco: Former Smokeless Tobacco: Never Alcohol Use Standard Drinks/Week Comments Yes 0 (1 standard drink = 0.6 oz pur e alcohol) Sex and Gender Information Value Date Recorded Sex Assigned at Not on file Gender Identity Not on file Sexual Orientation Not on file Last Filed Vital Signs Vital Sign Reading Time Taken Comments Blood Pressure 151/68 08/30/2020 10:43 AM EDT Pulse 74 08/30/2020 10:43 AM EDT Temperature 36.7 ??C (98 ??F) 08/30/2020 10:43 AM EDT Respiratory Rate - - Oxygen Saturation 99% 08/30/2020 10:43 AM EDT Inhaled Oxygen Concentration - - Weight 98 kg (216 lb) 08/30/2020 10:43 AM EDT Height 176.8 cm (5' 9.6 ) 08/30/2020 10:43 AM ED T Body Mass Index 31.35 08/30/2020 10:43 AM EDT Plan of Treatment Health Maintenance Due Date Last Done Comments Hepatitis C Screening 1955 COVID-19 Vaccine (#1) 05/24/1957 Depression Screening 1968 Preventative Health Evaluation 1974 DTap / Tdap / Td (1 - Tdap) 11/22/1975 Colon Cancer Screening (Colonoscopy) 2001 Shingrix-Zoster Vaccine (1 of 2) 2006 Fall Risk Assessment 2021 Pneumococcal Vaccine (1 of 1 - PCV) 2021 Influenza Vaccine (#1) 2023 RSV Adult > 60+ Yrs or Pregn ant (1 - 1-dose 75+ series) 11/22/2031 Hepatitis B Vaccines Aged Out No long er eligible based on patient's age to complete this topic RSV Ped < 20 months Aged Out No longe r eligible based on patient's age to complete this topic Care Teams Health Editor Relationship Specialty Start Date End Date Martin Fitch MD PCP - General Internal Medicine 08/30/20
--- OUTSIDE RECORDS SUMMARY | 2024-08-30 10:10 | XMS_ITS | Clinical Summary ---
Author Organization [facility] Facility Address [address] [address] Care Team Providers Care Beekeeper Name Role Phone Lyn Ness MD Primary Care Provider [phone] Social History Tobacco Use Types Packs/Day Years Used Date Smoking Tobacco: Never Assessed Sex and Gender Information Value Date Recorded Sex Assigned at Not on file Legal Sex Male 2:24 PM EDT Gender Identity Not on file Sexual Orientation Not on file Plan of Treatment Upcoming Encounters Date Type Department Care Team (Late st Contact Info) Description 09/26/2024 1:15 PM EDT [facility] Visit [facility] [address] [address] Almaz Cristobal ARNP [address] [address] Health Maintenance Due Date Last Done Comments Pneumococcal Vaccine: 50+ Ye ars (1 of 2 - PCV) 11/22/1975 Colorectal Cancer Screening: Annual FOBT 2005 Colorectal Cancer Screening: Colonoscopy 2005 Colorectal Cancer Screening: Sigmoidoscopy 2005 Diabetes: Hemoglobin A1C 08/25/2024 Diabetes: Ophthalmology Exam 08/25/2024 Diabetes: Pedal Pulse Checked 08/25/2024 Diabetes: Sensory Foot Exam 08/25/2024 Diabetes: Visual Foot Exam 08/25/2024 Influenza Vaccine (Season Ended) 2024 Hepatitis B Vaccine Aged Out No longe r eligible based on patient's age to complete this topic Insurance [employer] Care Teams Beekeeper Relationship Specialty Start Date End Date Lyn Ness MD [address] [place] [address] PCP - General Internal Medicine 08/27/22
== END 2024-08-30 09:32 | disposition home or self-care (01) ==
PROVIDERS: PCP Internal Medicine; Visit Provider Physician Assistant
DX: I48.91 Unspecified atrial fibrillation (principal)

== ENCOUNTER → 2024-08-30 08:54 | Outpatient (BNVA) | payer MEDICARE, SELFPAY | PROVIDERS: PCP Internal Medicine; Visit Provider Physician Assistant | DX: I48.91 Unspecified atrial fibrillation (principal) | CPT/HCPCS: 93005; 99212 ==

== ENCOUNTER 2024-09-11 09:32 | Outpatient (AMB) | payer MEDICARE, SELFPAY ==
--- NOTE | 2024-09-11 09:33 | A.OFFPC_ITS ---
Vital Signs 09/11/24 09:34 Height 5 ft 11 in Weight 196 lb 4 oz BMI 27.4 BP 140/82 H Blood Pressure Location Rt brachial Position Sitting Pulse 100 Pulse Source Pulse Oximeter Temp 97.5 F Temp Source Oral Pulse Oximetry (%) 98 Oxygen Delivery Method Room Air Intake Visit Reasons: 3-4m follow up Allergies bisoprolol Adverse Reaction (Intermediate, Verified 09/11/24 09:37) Diarrhea Medication List - Last Reconciled 09/11/24 by Lyn Ness MD ammonium lactate 12% 1 appl topical DAILY PRN apixaban (Eliquis) 5 mg PO BID blood sugar diagnostic (FreeStyle Lite Strips) Test blood sugar once a day blood-glucose meter (FreeStyle Lite Meter kit) Test blood sugar once a day folic acid 1 mg PO DAILY furosemide 80 mg PO BID glipizide 10 mg (2 x 5 mg) PO BID insulin glargine (Lantus Solostar U-100 Insulin) units subcut lancets (FreeStyle Lancets) Test blood sugar once a day metoprolol succinate ER 25 mg PO DAILY pantoprazole 40 mg PO BID simvastatin 10 mg PO BEDTIME spironolactone 25 mg PO DAILY valsartan 40 mg PO DAILY Tobacco use date assessed: 09/11/24 Fall risk assessment: No Falls in past year Last assessed Fall Risk: 09/11/24 Dental Screening Dental Screen Date: 09/11/24 Did you have a dental visit in the last 12 months?: No Did you have a dental problem in the last 6 months where you did not have access to dental care?: No Was dental information given to patient?: Patient declined HPI 3-4m follow up HPI Details Patient presents for the follow-up of hospitalization for new onset AFib liver cirrhosis heart failure and type 2 diabetes. Patient denies chest pain shortness or breath palpitations. He has been noncompliant with ADA diet. Patient was started on 32 units of Lantus insulin and reports fasting blood glucose above 200. He is not interested in continuous glucose monitoring. He quit drinking about 4 months ago [facility] Medical History (Updated 09/11/24 @ 15:36 by Lyn Ness MD) DM type 2 (diabetes mellitus, type 2) HTN (hypertension) CKD (chronic kidney disease) stage 3, GFR 30-59 ml/min Alcoholic cirrhosis of liver without ascites Atrial fibrillation with RVR Surgical History History of surgery on arm History of surgery Family History Sister Lymphoma Father Heart attack, Onset Age: 62 Mother DM2 (diabetes mellitus, type 2) Social History Household Members Other:: , 5 children, 11 greatchildren, retired Housing: House Patient Tobacco Use Status: Former Tobacco user e-Cigarette/Vaping Use: Never Used Second Hand Smoke Exposure: No service: Yes Current occupational status: retired Cognitive needs: No Hearing needs: No Vision needs: No Questionnaire PHQ-9 Over the last 2 weeks, how often have you been bothered by any of the following problems? 1. Little interest or pleasure in doing things: not at all 2. Feeling down, depressed, or hopeless: not at all 3. Trouble falling or staying asleep, or sleeping too much: not at all 4. Feeling tired or having little energy: not at all 5. Poor appetite or overeating: not at all 6. Feeling bad about yourself - or that you are a failure or have let yourself or your family down: not at all 7. Trouble concentrating on things, such as reading the newspaper or watching television: not at all 8. Moving or speaking so slowly that other people could have noticed. Or the opposite - being so fidgety or restless that you have been moving around a lot more than usual: not at all 9. Thoughts that you would be better off or of hurting yourself in some way: not at all Total score: 0 Depression Screening Interpretation: Negative Depression Screening Done: Yes 98601 - PHQ-9 Billing: Yes Source: Developed by Drs. Shukri Burnett, Nayely Sadler, Nikhil Vivas and colleagues, with an educational luis from [employer] [address] [employer]. Thrive Questionnaire Date Thrive assessed: 09/11/24 I am a: Patient What is your living situation today?: I choose not to answer this question Within the past 12 months, did the food you bought not last and you didn't have the money to get more?: I choose not to answer this question Within the past 12 months, did you worry whether your food would run out before you got money to buy more?: I choose not to answer this question Do you have trouble paying for medicines?: I choose not to answer this question Do you have trouble getting transportation to medical appointments?: I choose not to answer this question Do you have trouble paying your heating and electricity bill?: I choose not to answer this question Do you have trouble taking care of your child, family member or friend?: I choose not to answer this question Do you have trouble with day-to-day activities such as bathing, preparing meals, shopping, managing finances, etc.?: I choose not to answer this question Are you currently unemployed and looking for a job?: I choose not to answer this question Are you interested in more education?: I choose not to answer this question Please select the resources that you would like help with: None Currently or been in a relationship where the following occur: I choose not to answer THRIVE Score: 0 AUDIT C Alcohol Use Questionnaire (AUDIT-C) 1. How often do you have a drink containing alcohol?: Never 3. How often do you have six or more drinks on one occasion?: Never Total Score: 0 JEREMIAH-7 AMB Questionnaire JEREMIAH-7 Date JEREMIAH - 7 assessed: 09/11/24 Feeling nervous, anxious, or on edge: 0 = Not at all Not being able to stop or control worryin = Not at all Worrying too much about different things: 0 = Not at all Trouble relaxin = Not at all Being so restless that it is hard to sit still: 0 = Not at all Becoming easily annoyed or irritable: 0 = Not at all Feeling afraid as if something awful might happen: 0 = Not at all Total JEREMIAH-7 score (0-4 normal; 5-9 mild; 10-14 moderate; 15-21 severe): 0 Source: Developed by Drs. Shukri Burnett, Nayely Sadler, Nikhil vanegas nd colleagues, with an educational luis from [employer] [address]. JEREMIAH-7 Assessment Billing JEREMIAH-7 Assessment Tool: JEREMIAH-7 Assessment 38118 Review of Systems Const All systems reviewed & are unremarkable except as noted in HPI and below Eyes Reports no additional complaints Card Reports no additional complaints Resp Reports no additional complaints GI Reports no additional complaints Reports no additional complaints Physical exam (Primary Care) Vital Signs: Last Vital Signs Temp 97.5 F 09/11/24 09:34 Pulse 100 09/11/24 09:34 BP 140/82 H 09/11/24 09:34 Pulse Ox 98 09/11/24 09:34 Oxygen Delivery Method Room Air 09/11/24 09:34 BMI result Body Mass Index 27.4 Tobacco/Smoking Status: Tobacco use Status Tobacco use date assessed 09/11/24 09/11/24 09:42 Patient Tobacco Use Status Former Tobacco user 09/11/24 09:42 e-Cigarette/Vaping Use Never Used 09/11/24 09:42 PHQ-9: PHQ-9 Score PHQ-9: Total score 0 09/11/24 10:12 Depression Screening Interpretation: Negative Thrive Assessment: Date of Thrive Assessment Date Thrive assessed 09/11/24 09/11/24 09:42 Currently or been in a relationship where the following occur: I choose not to answer Const General: no acute distress HENMT Head: Yes normal to inspection Ears: hearing grossly normal bilaterally Mouth: Normal oral and palatal mucosa present Resp Effort & Inspection: normal respiratory effort Auscultation: clear to auscultation bilaterally Cardio Rhythm: regular rhythm Heart sounds: S1 normal heart sound present and S2 normal heart sound present GI Inspection: Yes normal to inspection Palpation (GI): Soft to palpation Percussion: Yes normal to percussion Extrem Other: 1+ pitting edema b/l Coding Level of Care Code Est Pt Level 4 (27608) Complex EM visit Add On G2211 Diagnoses DM type 2 (diabetes mellitus, type 2) E11.9 CKD (chronic kidney disease) stage 3, GFR 30-59 ml/min N18.30 Microalbuminuria R80.9 Atrial fibrillation with RVR I48.91 Alcoholic cirrhosis of liver without ascites K70.30 Hyperlipidemia E78.5 Additional Codes JEREMIAH-7 Assessment Billing - JEREMIAH-7 Assessment Tool: JEREMIAH-7 Assessment 13135 ([id number]) PHQ-9 - 28241 - PHQ-9 Billing: Yes ([id number]) Assessment & Plan Assessment & Plan (1) DM type 2 (diabetes mellitus, type 2): Comment: poorly controlled, pt refuses Metformin, Trulicity and Insulin Code(s): E11.9 - Type 2 diabetes mellitus without complications Category: Medical Plan: ADA diet increase physical activity discussed with the patient increase Lantus to 40 units a day. Patient was advised to monitor his blood glucose at least twice a day for 1 week and send the readings through patient's portal. He will follow-up in 1 month (2) CKD (chronic kidney disease) stage 3, GFR 30-59 ml/min: Comment: With microalbuminuria Code(s): N18.30 - Chronic kidney disease, stage 3 unspecified Category: Medical Plan: Avoid nephrotoxins monitor renal function continue valsartan (3) Microalbuminuria: Code(s): R80.9 - Proteinuria, unspecified Category: Medical Plan: Continue valsartan monitor renal function improve glycemic control (4) Atrial fibrillation with RVR: Code(s): I48.91 - Unspecified atrial fibrillation Category: Medical Plan: Continue Eliquis and beta marisol for rate control (5) Alcoholic cirrhosis of liver without ascites: Comment: dxd 10/2021 at [facility], declined GI follow-up, stopped drinking 2021 Code(s): K70.30 - Alcoholic cirrhosis of liver without ascites Category: Medical Plan: Monitor LFTs (6) Hyperlipidemia: Code(s): E78.5 - Hyperlipidemia, unspecified Category: Medical Plan: Continue low dose of statin because of liver cirrhosis Orders: Orders Lipid Panel 1 Week E11.9 - Type 2 diabetes mellitus without complications, N18.30 - Chronic kidney disease, stage 3 unspecified, R80.9 - Proteinuria, unspecified Comprehensive [place]. Panel Fast 1 Week E11.9 - Type 2 diabetes mellitus without complications, N18.30 - Chronic kidney disease, stage 3 unspecified, R80.9 - Proteinuria, unspecified Hemoglobin A1c 1 Week E11.9 - Type 2 diabetes mellitus without complications, N18.30 - Chronic kidney disease, stage 3 unspecified, R80.9 - Proteinuria, unspecified IRON PROFILE 1 Week E11.9 - Type 2 diabetes mellitus without complications, N18.30 - Chronic kidney disease, stage 3 unspecified, R80.9 - Proteinuria, unspecified Microalbumin, Random (w Creat) 1 Week E11.9 - Type 2 diabetes mellitus without complications, N18.30 - Chronic kidney disease, stage 3 unspecified, R80.9 - Proteinuria, unspecified Complete Blood Count Auto Diff 1 Week E11.9 - Type 2 diabetes mellitus without complications, N18.30 - Chronic kidney disease, stage 3 unspecified, R80.9 - Proteinuria, unspecified Vitamin B12 and Folate 1 Week E11.9 - Type 2 diabetes mellitus without complications, N18.30 - Chronic kidney disease, stage 3 unspecified, R80.9 - Proteinuria, unspecified Medications: New insulin glargine (Lantus Solostar U-100 Insulin) 40 units subcut Discontinued glipizide Discontinued Reason: Doctor's Order 10 mg (2 x 5 mg) PO BID 360 tabs 3RF
[2024-09-11 09:34] VITALS: BP 140/82; PULSE 100; TEMP 36.4; O2SAT 98; BMI 27.4
--- OUTSIDE RECORDS SUMMARY | 2024-09-11 10:14 | XMS_ITS | Clinical Summary ---
Author Organization [facility] Facility Address [address] [address] Care Team Providers Care Environmental Scientist Name Role Phone Lyn Ness MD Primary Care Provider [phone] Social History Tobacco Use Types Packs/Day Years [...] Office Visit [facility] [address] [address] Almaz Cristobal ARNP [address] [address] Health Maintenance Due Date Last [...] patient's age to complete this topic Insurance [employer] [facility] PPO ([id number]) Care Teams Environmental Scientist Relationship Specialty Start Date End Date Lyn Ness MD [address] [place], [place] [id number] PCP - General Internal Medicine 08/27/22
== END 2024-09-11 10:22 | disposition home or self-care (01) ==
PROVIDERS: PCP Internal Medicine; Visit Provider Internal Medicine
DX: E11.69 Type 2 diabetes mellitus with other specified complication (principal); N18.30 Chronic kidney disease, stage 3 unspecified; I48.91 Unspecified atrial fibrillation; K70.30 Alcoholic cirrhosis of liver without ascites; R80.9 Proteinuria, unspecified; E78.5 Hyperlipidemia, unspecified

== ENCOUNTER → 2024-09-11 09:32 | Outpatient (BNVA) | payer MEDICARE, SELFPAY | PROVIDERS: PCP Internal Medicine; Visit Provider Internal Medicine | DX: E11.22 Type 2 diabetes mellitus with diabetic chronic kidney disease (principal); I13.0 Hypertensive heart and chronic kidney disease with heart failure and stage 1 through stage 4 chronic kidney disease, or unspecified chronic kidney disease; I50.9 Heart failure, unspecified; N18.30 Chronic kidney disease, stage 3 unspecified; R80.9 Proteinuria, unspecified; K70.30 Alcoholic cirrhosis of liver without ascites; E78.5 Hyperlipidemia, unspecified; I48.91 Unspecified atrial fibrillation; Z79.4 Long term (current) use of insulin; Z91.119 Patient's noncompliance with dietary regimen due to unspecified reason | CPT/HCPCS: 96127; 99212 ==

== ENCOUNTER 2025-01-05 14:10 | Outpatient (AMB) | payer MEDICARE, SELFPAY ==
[2025-01-05 14:18] VITALS: BP 104/66; PULSE 96; RESP 17; TEMP 36.7; O2SAT 99; BMI 28.9
--- NOTE | 2025-01-05 14:18 | A.OFFPC_ITS ---
Vital Signs 01/05/25 14:18 Height 5 ft 11 in Weight 207 lb BMI 28.9 BP 104/66 Blood Pressure Location Lt brachial Position Sitting Respiration 17 Pulse 96 Pulse Source Pulse Oximeter Temp 98.1 F Temp Source Oral Pulse Oximetry (%) 99 Oxygen Delivery Method Room Air Intake Visit Reasons: Hospital follow up Allergies bisoprolol Adverse Reaction (Intermediate, Verified 01/05/25 14:23) Diarrhea Medication List - Last Reconciled 01/05/25 by Lyn Ness MD ammonium lactate 12% 1 appl topical DAILY PRN apixaban (Eliquis) 5 mg PO BID blood sugar diagnostic (Accu-Chek Guide test strips) Test blood sugar 3 times per day blood-glucose meter (Accu-Chek Guide Me Glucose Meter) As directed blood-glucose sensor ([employer] G7 Sensor device) As directed folic acid 1 mg PO DAILY furosemide 20 mg PO BID insulin glargine (Lantus Solostar U-100 Insulin) 55 units subcut QPM insulin lispro (Humalog KwikPen (U-100) Insulin) 1 sliding scale dose subcut USEASDIRECTD lancets (Accu-Chek Softclix Lancets) Test blood sugar 3 times per day metoprolol succinate ER 25 mg (1/2 x 50 mg) PO DAILY pantoprazole 40 mg PO BID pen needle, diabetic (Pen Needle) Use to inject insulin up to 4 times per day simvastatin 10 mg PO BEDTIME spironolactone 25 mg PO DAILY Tobacco use date assessed: 09/11/24 Fall risk assessment: No Falls in past year Last assessed Fall Risk: 01/05/25 Dental Screening Dental Screen Date: 09/11/24 [facility] Hospital follow up HPI Details Pt presents with his daughter, nurse at [facility], for f/u hospitalization at [facility] 12/22-12/25 for uncontrolled diabetes with a glucose of 500 and worsening iron deficiency anemia. Patient workup was negative for DKA but consistent with acute on chronic renal failure and worsening of chronic iron deficiency anemia but no active source of bleeding. Patient received transfusion PRBC and intravenous iron. Patient is established with GI at [facility] and had negative endoscopy in August and has follow-up with GI scheduled for outpatient colonoscopy. . Blood glucose were controlled with La ntus and Humalog according to sliding scale. Acute renal failure improved with IV fluids. Valsartan was held by Nephrology but patient was continued on furosemide and spironolactone. Since the discharge patient reports fasting glucose less than 250 and has been trying to follow ADA diet. He denies polyuria polydipsia, Chest pain shortness or breath or palpitations [facility] Medical History (Updated 01/05/25 @ 19:34 by Lyn Ness MD) Anemia DM type 2 (diabetes mellitus, type 2) HTN (hypertension) CKD (chronic kidney disease) stage 3, GFR 30-59 ml/min Alcoholic cirrhosis of liver without ascites Atrial fibrillation with RVR Surgical History History of surgery on arm History of surgery Family History Sister Lymphoma Father Heart attack, Onset Age: 62 Mother DM2 (diabetes mellitus, type 2) Social History Household Members Other:: , 5 children, 11 greatchildren, retired Housing: House Patient Tobacco Use Status: Former Tobacco user e-Cigarette/Vaping Use: Never Used Second Hand Smoke Exposure: No service: Yes Current occupational status: retired Cognitive needs: No Hearing needs: No Vision needs: No Questionnaire PHQ-9 Over the last 2 weeks, how often have you been bothered by any of the following problems? 1. Little interest or pleasure in doing things: not at all 2. Feeling down, depressed, or hopeless: not at all 3. Trouble falling or staying asleep, or sleeping too much: not at all 4. Feeling tired or having little energy: not at all 5. Poor appetite or overeating: not at all 6. Feeling bad about yourself - or that you are a failure or have let yourself or your family down: not at all 7. Trouble concentrating on things, such as reading the newspaper or watching television: not at all 8. Moving or speaking so slowly that other people could have noticed. Or the opposite - being so fidgety or restless that you have been moving around a lot more than usual: not at all 9. Thoughts that you would be better off or of hurting yourself in some way: not at all Total score: 0 Depression Screening Interpretation: Negative Depression Screening Done: Yes Source: Developed by Drs. Shukri Burnett, Nikhil Ariza and colleagues, with an educational luis from [employer]. Thrive Questionnaire Date Thrive assessed: 05/19/24 I am a: Patient What is your living situation today?: I choose not to answer this question Within the past 12 months, did the food you bought not last and you didn't have the money to get more?: I choose not to answer this question Within the past 12 months, did you worry whether your food would run out before you got money to buy more?: I choose not to answer this question Do you have trouble paying for medicines?: I choose not to answer this question Do you have trouble getting transportation to medical appointments?: I choose not to answer this question Do you have trouble paying your heating and electricity bill?: I choose not to answer this question Do you have trouble taking care of your child, family member or friend?: I choose not to answer this question Do you have trouble with day-to-day activities such as bathing, preparing meals, shopping, managing finances, etc.?: I choose not to answer this question Are you currently unemployed and looking for a job?: I choose not to answer this question Are you interested in more education?: I choose not to answer this question Please select the resources that you would like help with: None Currently or been in a relationship where the following occur: I choose not to answer THRIVE Score: 0 JEREMIAH-7 AMB Questionnaire JEREMIAH-7 Date JEREMIAH - 7 assessed: 09/11/24 Feeling nervous, anxious, or on edge: 0 = Not at all Not being able to stop or control worryin = Not at all Worrying too much about different things: 0 = Not at all Trouble relaxin = Not at all Being so restless that it is hard to sit still: 0 = Not at all Becoming easily annoyed or irritable: 0 = Not at all Feeling afraid as if something awful might happen: 0 = Not at all Total JEREMIAH-7 score (0-4 normal; 5-9 mild; 10-14 moderate; 15-21 severe): 0 Source: Developed by Nayely Kim Kurt Kroenke and colleagues, with an educational luis from [employer]. Review of Systems Const All systems reviewed & are unremarkable except as noted in HPI and below Eyes Reports no additional complaints ENT Reports no additional complaints Card Reports no additional complaints Resp Reports no additional complaints GI Reports no additional complaints Physical exam (Primary Care) Vital Signs: Last Vital Signs Temp 98.1 F 01/05/25 14:18 Pulse 96 01/05/25 14:18 Resp 17 01/05/25 14:18 BP 104/66 01/05/25 14:18 Pulse Ox 99 01/05/25 14:18 Oxygen Delivery Method Room Air 01/05/25 14:18 BMI result Body Mass Index 28.9 Tobacco/Smoking Status: Tobacco use Status Tobacco use date assessed 09/11/24 01/05/25 14:18 Patient Tobacco Use Status Former Tobacco user 01/05/25 14:18 e-Cigarette/Vaping Use Never Used 01/05/25 14:18 PHQ-9: PHQ-9 Score PHQ-9: Total score 0 01/05/25 14:44 Depression Screening Interpretation: Negative Thrive Assessment: Date of Thrive Assessment Date Thrive assessed 05/19/24 01/05/25 14:18 Currently or been in a relationship where the following occur: I choose not to answer Const General: no acute distress HENMT Head: Yes normal to inspection Mouth: Normal oral and palatal mucosa present Neck Neck: Yes supple Resp Effort & Inspection: normal respiratory effort Auscultation: clear to auscultation bilaterally Cardio Rhythm: regular rhythm Heart sounds: S1 normal heart sound present and S2 normal heart sound present GI Inspection: Yes normal to inspection Palpation (GI): Soft to palpation Percussion: Yes normal to percussion Auscultation: normal bowel sounds Extrem General: Yes no pedal edema Coding Level of Care Code Est Pt Level 4 (65911) Diagnoses DM type 2 (diabetes mellitus, type 2) E11.9 Hyperlipidemia E78.5 Atrial fibrillation with RVR I48.91 Alcoholic cirrhosis of liver without ascites K70.30 Anemia D64.9 Assessment & Plan Assessment & Plan (1) DM type 2 (diabetes mellitus, type 2): Comment: poorly controlled, on Lantus and Humalog with a sliding scale coverage Code(s): E11.9 - Type 2 diabetes mellitus without complications Category: Medical Plan: Patient was advised to continue long acting insulin and Humalog with a sliding scale. He was advised to record his blood glucose before meals and at bedtime. Patient declined continuous glucose monitoring. ADA diet discussed with the patient he declined nutritional and nurse navigator consult. Patient will follow-up in 2 weeks and has a fasting labs before (2) Hyperlipidemia: Code(s): E78.5 - Hyperlipidemia, unspecified Category: Medical Plan: Continue statin (3) Atrial fibrillation with RVR: Comment: Rate controlled on metoprolol and anticoagulated on Eliquis Code(s): I48.91 - Unspecified atrial fibrillation Category: Medical Plan: On metoprolol for rate control and Eliquis for anticoagulation (4) Alcoholic cirrhosis of liver without ascites: Comment: dxd 10/2021 at [facility], declined GI follow-up, stopped drinking 2021, EGD negative August 2024 at [facility] on spironolactone Code(s): K70.30 - Alcoholic cirrhosis of liver without ascites Category: Medical Plan: Continue spironolactone (5) Anemia: Comment: Iron deficiency anemia requiring blood transfusion and iron supplement. Negative EGD in August 2024 at [facility] Code(s): D64.9 - Anemia, unspecified Category: Medical Plan: Continue oral iron supplement monitor CBC Orders: Orders Comprehensive [place]. Panel Fast 2 Weeks E11.9 - Type 2 diabetes mellitus without complications, E78.5 - Hyperlipidemia, unspecified, I10 - Essential (primary) hypertension, I48.91 - Unspecified atrial fibrillation Hemoglobin A1c 2 Weeks E11.9 - Type 2 diabetes mellitus without complications, E78.5 - Hyperlipidemia, unspecified, I10 - Essential (primary) hypertension, I48.91 - Unspecified atrial fibrillation Complete Blood Count Auto Diff 2 Weeks E11.9 - Type 2 diabetes mellitus without complications, E78.5 - Hyperlipidemia, unspecified, I10 - Essential (primary) hypertension, I48.91 - Unspecified atrial fibrillation Reticulocyte Count 2 Weeks E11.9 - Type 2 diabetes mellitus without complications, E78.5 - Hyperlipidemia, unspecified, I10 - Essential (primary) hypertension, I48.91 - Unspecified atrial fibrillation Lipid Panel 2 Weeks E11.9 - Type 2 diabetes mellitus without complications, E78.5 - Hyperlipidemia, unspecified, I10 - Essential (primary) hypertension, I48.91 - Unspecified atrial fibrillation Microalbumin, Random (w Creat) 2 Weeks E11.9 - Type 2 diabetes mellitus without complications, E78.5 - Hyperlipidemia, unspecified, I10 - Essential (primary) hypertension, I48.91 - Unspecified atrial fibrillation Vitamin B12 and Folate 2 Weeks E11.9 - Type 2 diabetes mellitus without complications, E78.5 - Hyperlipidemia, unspecified, I10 - Essential (primary) hypertension, I48.91 - Unspecified atrial fibrillation Vitamin B1 2 Weeks E11.9 - Type 2 diabetes mellitus without complications, E78.5 - Hyperlipidemia, unspecified, I10 - Essential (primary) hypertension, I48.91 - Unspecified atrial fibrillation IRON PROFILE 2 Weeks E11.9 - Type 2 diabetes mellitus without complications, E78.5 - Hyperlipidemia, unspecified, I10 - Essential (primary) hypertension, I48.91 - Unspecified atrial fibrillation Vitamin D 25-OH Total 2 Weeks E11.9 - Type 2 diabetes mellitus without complications, E78.5 - Hyperlipidemia, unspecified, I10 - Essential (primary) hypertension, I48.91 - Unspecified atrial fibrillation Medications: New blood-glucose sensor ([employer] G7 Sensor device) As directed 3 ea 2RF Changed From insulin glargine (Lantus Solostar U-100 Insulin) 50 units (0.5 mL) subcut QPM 45 mL 1RF E11.9 - Type 2 diabetes mellitus without complications To insulin glargine (Lantus Solostar U-100 Insulin) 55 units subcut QPM E11.9 - Type 2 diabetes mellitus without complications
--- OUTSIDE RECORDS SUMMARY | 2025-01-05 15:17 | XMS_ITS | Patient Health Record ---
Author Organization [facility] Address [address] [place] [address] Care Team Providers Care Customer Account Representative Name Role Phone Little RANDOLPH, Radha Blackburn Primary Care Provider James Marcum Unavailable [phone] Allergies No Known Allergies Reason For Referral [...] Status Risk Notes Problem Acquired hallux valgus (46832647) Hallux valgus (acquired), left foot (M20.12) Active confirmed Problem Acquired hallux rigidus (2848292) Hallux rigidus, right foot (M20.21) Active confirmed Plan Of Treatment Pending Test Test Name Order Date X ray : Foot, left 3V 08/21/2020 X ray : Foot, right 3V 08/21/2020 Insurance Providers Payer Name Payer Address Payer Phone Subscriber Number Group Number Insured Name Patient Relationship to Insured Coverage Start Date Coverage End Date [facility] [id number] [place] [phone] [id number] Trev Miranda Self - patient is the insured Medical (General) History Medical History History ICD Code Arthritis Diabetic Gout High blood pressure Numbness Surgical History Surgery Date(Month/Year) knee surgery 09/16/79 knee surgery 09/15/89
--- OUTSIDE RECORDS SUMMARY | 2025-01-05 15:17 | XMS_ITS | Clinical Summary ---
Author Organization [facility] Address [address] [place] [address] Phone Care Team Providers Care Nail Puller Name Role Phone Lyn Ness MD Primary Care Provider [phone] Allergies Active Allergy Reactions Criticality Noted Date Comments Indomethacin 09/28/2024 Medications furosemide (LASIX) 40 mg tablet Take by mouth 2 (two) times a day. Active metoprolol succinate (TOPROL-XL) 25 mg 24 hr tablet Take 1 tablet (25 mg total) by mouth 1 (one) time each day. Do not crush or chew. Active valsartan (DIOVAN) 40 mg tablet Take 1 tablet (40 mg total) by mouth 1 (one) time each day. Active spironolactone (ALDACTONE) 25 mg tablet Take by mouth. Active pantoprazole (PROTONIX) 40 mg EC tablet Take 1 tablet (40 mg total) by mouth 1 (one) time each day before breakfast. Do not crush, chew, or split. Active simvastatin (ZOCOR) 20 mg tablet Take 1 tablet (20 mg total) by mouth at bedtime. Active insulin glargine (LANTUS) 100 unit/mL injection Inject 50 Units under the skin at bedtime. Active apixaban (ELIQUIS) 5 mg tablet Take 1 tablet (5 mg total) by mouth 2 (two) times a day. 180 tablet 1 12/05/2024 Active Active Problems Problem Noted Date Diagnosed Date Primary hypertension 10/02/2024 Assessment & Plan (10/02/2024 3:18 PM EDT): Blood pressure is soft in office today, however, he denies lightheadedness or dizziness. If this were to occur, I would stop valsartan. Continue metoprolol, valsartan, and spironolactone. Ulcer of esophagus with bleeding 10/02/2024 Assessment & Plan (10/02/2024 3:18 PM EDT): Unable to start anticoagulation during hospitalization in August 2024 due to anemia from unknown source. Patient reports undergoing EGD after hospitalization which showed a healing esophageal ulcer which was thought to have caused the anemia in August. Following with gastroenterology for continued monitoring. If the patient were to have another bleed in addition to atrial fibrillation, would discuss Watchman placement. Mixed hyperlipidemia 10/02/2024 Assessment & Plan (10/02/2024 3:18 PM EDT): LDL 03/04/22 31. Continue atorvastatin Chronic kidney disease, stage 3 ([facility] V24, [facility] V28) 10/02/2024 Rapid atrial fibrillation ([facility] V24, [facility] V28) 09/28/2024 Volume overload 09/28/2024 Surgical History Surgery Date Site/Laterality Comments KNEE SURGERY PROCEDURE: HISTORICAL KNEE SURGERY; COMMENT: lef in 1979 r in 1989 torn cartiladge Medical History Medical History Date Comments LFT elevation 06/21/2014 DX:LFT elevation Gout 06/21/2014 DX:Gout Mitral regurgitation 06/04/2014 DX:Mitral r egurgitation CKD (chronic kidney disease) stage 3, GFR 30-59 ml/min ([facility] V24, [facility] V28) 11/03/2018 DX:CKD (chronic kidney disea se) stage 3, GFR 30-59 ml/min ([facility]) Microalbuminuria 11/03/2018 DX:Microalbumin uria Type 2 diabetes mellitus wit h renal manifestations ([facility] V24, [facility] V28) 02/01/2015 DX:Type 2 diabetes mellitus with renal manifestations ([facility]) Alcohol abuse 10/01/2017 DX:Alcohol abuse Diastolic dysfunction with c hronic heart failure ([facility] V24, [facility] V28) 06/19/2016 DX:Diastolic dysfunction wit h chronic heart failure (HCC) Essential hypertension 06/24/2018 DX:Essent ial hypertension Hyperlipidemia 10/02/2014 DX:Hyperlipidemi a Osteoarthritis of knees, bilateral 06/04/2014 DX:Osteoarthritis of knees, bilateral DM (diabetes mellitus), type 2 with renal complications ([facility] V24, [facility] V28) 02/01/2015 DX:DM (diabetes mellitus), t ype 2 with renal complications (HCC) GI bleed DX:GI bleed Symptomatic anemia DX:Symptomati c anemia Alcoholic cirrhosis of liver ([facility] V24, [facility] V28) DX:Alcoholic cirrhosis of li jaci (HCC) Portal hypertensive gastropa thy ([facility] V24, [facility] V28) 04/09/2022 DX:Portal hypertensive bg ropathy (HCC) COVID-19 virus infection DX:COVI D-19 virus infection Stage III chronic kidney dis ease ([facility] V24, [facility] V28) DX:Stage III chronic kidney disease (HCC) Weakness DX:Weakness Elevated LFTs DX:Elevated LFTs MRSA (methicillin resistant Staphylococcus aureus) DX:MRSA (methicillin resista nt Staphylococcus aureus); COMMENT: cellulitis Anemia Chronic kidney disease Hypertension Acute hypoxemic respiratory failure ([facility] V24, [facility] V28) Orthopnea Cirrhosis ([facility] V24, [facility] V28) Family History Medical History Relation Name Comments Heart attack Father dx with CAD in his 50s, Diabetes, Hypertension Other cancer Sister ? lymphoma Relation Name Status Comments Father (Age 62) of an AR Mother (Age 80s) unknown c auses Sister Social History Tobacco Use Types Packs/Day Years Used Date Smoking Tobacco: Former Cigarettes Q uit: 04/12/2014 Smokeless Tobacco: Former Tobacco Cessation:Counseling Given: Not Answered Alcohol Use Standard Drinks/Week Comments Yes 0 (1 standard drink = 0.6 oz pur e alcohol) Sex and Gender Information Value Date Recorded Sex Assigned at Not on file Legal Sex Male 2:54 AM EST Gender Identity Not on file Sexual Orientation Not on file Obstetrics History Last Filed Vital Signs Vital Sign Reading Time Taken Comments Blood Pressure 100/70 10/02/2024 12:36 PM EDT Pulse 93 10/02/2024 12:36 PM EDT Temperature - - Respiratory Rate - - Oxygen Saturation 97% 10/02/2024 12:36 PM EDT Inhaled Oxygen Concentration - - Weight 83.9 kg (185 lb) 10/02/2024 12:36 PM EDT Height 180.3 cm (5' 11 ) 10/02/2024 12:36 PM EDT Body Mass Index 25.8 10/02/2024 12:36 PM EDT Plan of Treatment Health Maintenance Due Date Last Done Comments Diabetes: Annual GFR (Glomer ular Filtration Rate) 1956 COVID-19 Vaccine (#1) 1961 Diabetes: Annual Foot Exam 1966 Diabetes: Annual Retina Eye Exam 1966 Hepatitis A Vaccines (1 of 2 - Risk 2-dose series) 11/22/1975 Pneumococcal Vaccine: 50+ Ye ars (1 of 2 - PCV) 11/22/1975 Zoster Vaccines (1 of 2) 11/22/1975 Hepatitis B Vaccines (1 of 3 - Risk 3-dose series) 2016 RSV Immunization Adult Patie nts (1 - Risk 60-74 years 1-dose series) 2016 Abdominal Aortic Aneurysm (A AA) Screen 03/15/2022 Cholesterol Screening (Lipid Panel) 03/15/2022 Colorectal Cancer Screening: Colonoscopy 03/15/2022 Falls Risk Assessment 03/15/2022 Hepatitis C Screening 03/15/2022 Medicare Annual Wellness Visit 03/15/2022 Social Influencers of Health Screening 03/15/2022 Diabetes: Annual Urine Albumin-Creatinine Ratio (uACR) 03/28/2022 Diabetes: Blood Sugar Contro l Test (HGBA1C) 03/28/2022 Hypertension/CHF/CAD Annual BMP Blood Test 03/28/2022 Depression Screening 04/12/2024 Influenza Vaccine (#1) 2024 DTaP,Tdap,and Td Vaccines (2 - Td [...] patient's age to complete this topic Insurance [employer] on file MEDICARE Advance Directives Documents on File Type Date Recorded Patient Psychologist Social Expl anation Health Care Decision (hx) 07/13/2020 AD WOODS DIRECTIVE Health Care Decision (hx) 07/13/2020 AD WOODS DIRECTIVE Health Care Decision (hx) 07/13/2020 AD WOODS DIRECTIVE Health Care Decision (hx) 10/22/2015 AD WOODS DIRECTIVE Health Care Decision (hx) 10/22/2015 AD WOODS DIRECTIVE Health Care Decision (hx) 10/22/2015 AD WOODS DIRECTIVE Health Care Decision (hx) 10/22/2015 AD WOODS DIRECTIVE Care Teams Nail Puller Relationship Specialty Start Date End Date Lyn Ness MD [address] [facility] [place] [id number] PCP - General Internal Medicine 09/07/24
--- OUTSIDE RECORDS SUMMARY | 2025-01-05 15:17 | XMS_ITS | Clinical Summary ---
Author Organization [facility] Address [address] [place] [address] Care Team Providers Care Professional Services Manager Name Role Phone Martin Fitch MD Primary Care Provider [phone] Allergies Active Allergy Reactions Criticality Noted Date [...] 74 08/30/2020 10:43 AM EDT Temperature 36.7 C (98 F) 08/30/2020 10:43 AM EDT Respiratory Rate - [...] 1 - PCV) 2021 Influenza Vaccine (#1) 2024 RSV Adult > 60+ Yrs or Pregn ant (1 - 1-dose 75+ series) 11/22/2031 Hepatitis B Vaccines Aged Out No long er eligible based on patient's age to complete this topic RSV Ped < 20 months Aged Out No longe r eligible based on patient's age to complete this topic Care Teams Professional Services Manager Relationship Specialty Start Date End Date Martin Fitch MD PCP - General Internal Medicine 08/30/20
--- OUTSIDE RECORDS SUMMARY | 2025-01-05 15:18 | XMS_ITS | Continuity of Care Document ---
Author Name [facility], Medical Address [address] [place] [address] Organization Unknown Address [address] [place] [address] Medications No known medications Problems No known problems
--- OUTSIDE RECORDS SUMMARY | 2025-01-05 15:18 | XMS_ITS | Encounter Summary ---
Author Organization [facility] Address [address] [place] [address] Encounters * CPT with Medical instED at [employer] on 2024-12-22 shortness of breath, weakness?? { reasonForRequest : , patientReports : , denies":[ Increased work of breathing/labored with or without fever , Unable to speak in full sentences without distress , Discoloration of skin -cyanosis , Needs to sleep sitting up, can t catch breath , Shortness of breath in setting of confusion ] , chiefComplaints : Abnormal Lab Value, Breathing Problems , pmh :&quo t;Hypertension, Diabetes Mellitus Type 2, Arrhythmias (e.g., Atrial Fibrillation), Joint Replacement (e.g., Hip, Knee) , allergies : No Known Drug Allergies , otherAllergies : , painAssessment : , visitOutcome : , additionalComments : 69 y.o male complains of Abnormal Lab Value, Breathing Problems\n\nPatientss daughter placed visit via portal\nCall to patient for more information\nPatient states that we will probably send him to the ED, vague with responses to questions and why, but says, his labs will probably be off, and that he think his kidney function has doubled\nHe reports kidney disease but does not know what stage it is.\nHe is DM blood sugar this morning was 281, denies any symptoms of hyperglycemia, only takes lantus at night\nHe is on eliquis for afib, diagnosed last month\nHe reports some mild shortness of breath, not on supplemental o2\nDenies chest pain\nNo headaches or dizziness\nNo nausea, vomiting or diarrhea, no abdominal pain\n\nCall to daughter- patient had a recent GIB, new afib as well as heart failure now on lasix and cirrhosis\nGI doc called today with abdnormal labs, patient declining ED but accepting of instED for repeat labs\nPer GI creatine doubled to 2.8, Hgb 7.6, not sure of other abnormal findings\n\n\n\nI provided information on the mobile health provider response time and advised the patient and/or caregiver to monitor reported signs and symptoms. I discussed the warning signs of when to seek emergency care. } Encountered patient conscious, alert and ambulatory with family present. Family reports patient is requesting a visit today due to abnormal labs, initial labs were retrieved through his primary care doctor approximately one week ago; they are seeking repeat labs today. When prompted, patient expresses intermittent shortness of breath while climbing stairs but otherwise offers no somatic complaints. IV established, BMP performed; values uploaded via [employer]. Family reports patient takes Lantus daily but is still having trouble controlling his blood sugar. Skin warm, dry and pale. Head and neck, free of trauma and edema. ??? JVD. Breath sounds present, clear and equal bilaterally. Abdomen is soft, non-tender and non-distended. Extremities are free of trauma and edema. [facility] contacted: states that after reviewing patient???s lab values that patient could be suffering from diabetic ketoacidosis and should see immediate transport to a local emergency room for further treatment. Patient was initially reluctant to the emergency room, rejecting transport via ambulance, but after some convincing was agreeable to go via a private vehicle. IV was discontinued prior to end of appointment, this securities underwriter cleared the scene while family was preparing an ???over-night bag??? with the intention to drive patient over to [facility]. IV discontinued prior to end of appointment. IV_(FLUIDS_AND/OR_MEDICATION), MEDICATION_IM, ORAL_MEDICATION, POC_BLOODWORK, POC_FLU_STREP, COVID_TEST Written by [employer] on 2024-12-22
== END 2025-01-05 15:21 | disposition home or self-care (01) ==
LOC: HO.HMCC 14:11
PROVIDERS: PCP Internal Medicine; Visit Provider Internal Medicine
DX: E11.9 Type 2 diabetes mellitus without complications (principal); E78.5 Hyperlipidemia, unspecified; I48.91 Unspecified atrial fibrillation; K70.30 Alcoholic cirrhosis of liver without ascites; D64.9 Anemia, unspecified

== ENCOUNTER → 2025-01-05 14:10 | Outpatient (BNVA) | payer MEDICARE, SELFPAY | PROVIDERS: PCP Internal Medicine; Visit Provider Internal Medicine | DX: E11.9 Type 2 diabetes mellitus without complications (principal); E78.5 Hyperlipidemia, unspecified; I48.91 Unspecified atrial fibrillation; K70.30 Alcoholic cirrhosis of liver without ascites; D64.9 Anemia, unspecified; Z79.4 Long term (current) use of insulin | CPT/HCPCS: 96127; 99212 ==

== ENCOUNTER 2025-01-26 08:40 | Outpatient (REF) | payer MEDICARE, SELFPAY ==
--- OUTSIDE RECORDS SUMMARY | 2025-01-26 09:04 | XMS_ITS | Clinical Summary ---
Author Organization [facility] Address [address] [place] [address] Phone Care Team Providers Care Program Professional Name Role Phone Lyn Ness MD Primary Care Provider [phone] Allergies Active Allergy Reactions Criticality Noted Date Comments Indomethacin 10/12/2015 Hemoptysis Medications ferrous sulfate 325 (65 Fe) MG tablet Take 1 tablet by mouth 1 (one) time each day 1 Active insulin glargine (LANTUS) 100 UNIT/ML injection Inject 32 Units under the skin 5 Active metoprolol succinate XL (TOPROL XL) 25 MG 24 hr tablet Take 25 mg by mouth 1 (one) time each day 5 Active simvastatin (ZOCOR) 10 MG tablet Take 10 mg by mouth every night 9 Active spironolactone (ALDACTONE) 25 MG tablet Take 25 mg by mouth 1 (one) time each day 5 Active valsartan (DIOVAN) 40 MG tablet Take 40 mg by mouth 5 Active apixaban (Eliquis) 5 MG tablet Take 5 mg by mouth in the morning and 5 mg in the evening. Active torsemide (DEMADEX) 20 MG tabletIndications :Bilateral localized swelling of lower legs,Stage 3b chronic kidney disease (HCC),Essential hypertension Take 1 tablet (20 mg total) by mouth every morning and evening 60 tablet 2 5 Active Active Problems Problem Noted Date Diagnosed Date Hypo-osmolality and hyponatremia 10/23/2024 Acute nontraumatic kidney injury, not otherwise specified 09/28/2024 Stage 3b chronic kidney disease 09/28/2024 Acquired hallux rigidus 09/26/2024 Heart failure 09/26/2024 Hyperlipidemia 09/26/2024 Obese class I 09/26/2024 Osteoarthritis of knee 09/26/2024 Type 2 diabetes mellitus 09/26/2024 Tobacco user 09/26/2024 Cirrhosis of liver 03/04/2022 Anemia 10/15/2020 Overview (09/26/2024): Recently seen with hematology. Advised that there is likely component of anemia due to chronic renal failure. Also had recent severe MRSA infection and felt that likely component of anemia due to inflammatory block. Also with component of iron deficiency anemia. Taking iron supplementation and vitamin C. Lab screening for autoimmune disease and hemolysis negative. Lab screening for myeloma negative. Advised to proceed with GI work-up for endoscopic evaluation Chronic iron deficiency anemia secondary to bloo d loss 09/02/2020 Noncompliance with medication regimen 06/12/2019 Anemia co-occurrent and due to chronic kidney disease stage 3 11/03/2018 Microalbuminuria 11/03/2018 Essential hypertension 06/24/2018 Overview (09/26/2024): Last Assessment & Plan: The patient has a history of hypertension. His blood pressure today was noted to be slightly elevated. I discussed with the patient the possibility of making adjustments to his medication regimen. However, the patient stated that he wants to continue with his current medication regimen and he will monitor his blood pressure at home. He will contact our office if he notices any evidence of elevated blood pressures. Alcohol abuse 10/01/2017 Cannabis use, unspecified, uncomplicated 018 Diastolic dysfunction 06/19/2016 Overview (09/26/2024): Last Assessment & Plan: The patient has a history of heart failure with preserved ejection fraction. Previous echocardiogram showed evidence of grade 2 LV diastolic dysfunction. Currently, the patient is on medical therapy with lisinopril, amlodipine, and empagliflozin. No significant volume overload on physical examination. Therefore, no need for loop diuretics at this point. We will continue his current medication therapy. Type 2 diabetes mellitus wit h other diabetic kidney complication 02/01/2015 Gout 06/21/2014 Overview (09/26/2024): Recurrent attacks, colchicine and allopurinol started 12/26 Bilateral osteoarthritis of knees 06/04/2014 Mitral valve regurgitation 06/04/2014 Overview (09/26/2024): Cardiology rec: Mitral regurgitation-given that he is only in the mild to moderate range, we can likely proceed with a repeat echocardiogram in 3-5 years or with any new symptoms. Blood pressure control will be paramount to controlling his MR SEES dR. MOYA ( Cardiology), LYNDSEY IN 07/2018 Last Assessment & Plan: The patient has a history of mitral valve insufficiency. LYNDSEY done in September 2018 showed moderate mitral valve insufficiency due to an apparent tear in the A1 segment of the anterior mitral valve leaflet. Interestingly, transthoracic echocardiogram in June 2020 did not show any significant mitral valve insufficiency. On the physical examination, the patient does have a significant mitral insufficiency murmur. As such, we will proceed with a new transthoracic echocardiogram to reevaluate his mitral valve insufficiency. Family History Medical History Relation Comments Diabetes Mother Relation Status Comments Mother Social History Tobacco Use Types Packs/Day Years Used Date Smoking Tobacco: Former Cigarettes Smokeless Tobacco: Never Tobacco Cessation:Counseling Given: Not Answered Alcohol Use Standard Drinks/Week Comments Not Currently 0 (1 standard drink = 0.6 oz pur e alcohol) Sex and Gender Information Value Date Recorded Sex Assigned at Not on file Legal Sex Male 2:24 PM EDT Gender Identity Not on file Sexual Orientation Not on file Last Filed Vital Signs Vital Sign Reading Time Taken Comments Blood Pressure 98/70 09/28/2024 11:15 AM EDT Pulse 99 09/28/2024 11:15 AM EDT Temperature - - Respiratory Rate - - Oxygen Saturation - - Inhaled Oxygen Concentration - - Weight 88.9 kg (196 lb) 09/28/2024 11:15 AM EDT Height - - Body Mass Index - - Plan of Treatment Upcoming Encounters Date Type Department Care Team (Late st Contact Info) Description 03/27/2025 9:30 AM EST Office Visit [facility] [address] [place] [address] Nain Lopez MD [address] [address] Health Maintenance Due Date Last Done Comments Pneumococcal Vaccine: 50+ Ye ars (1 of 2 - PCV) 11/22/1975 Colorectal Cancer Screening: Annual FOBT 2005 Colorectal Cancer Screening: Colonoscopy 2005 Colorectal Cancer Screening: Sigmoidoscopy 2005 Diabetes: Hemoglobin A1C 08/25/2024 Diabetes: Ophthalmology Exam 08/25/2024 Diabetes: Pedal Pulse Checked 08/25/2024 Diabetes: Sensory Foot Exam 08/25/2024 Diabetes: Visual Foot Exam 08/25/2024 Influenza Vaccine (#1) 2024 Hepatitis B Vaccine Aged Out No longe r eligible based on patient's age to complete this topic Insurance O ([id number]) Care Teams Program Professional Relationship Specialty Start Date End Date Lyn Ness MD [address] [place] [address] PCP - General Internal Medicine 08/27/22
--- OUTSIDE RECORDS SUMMARY | 2025-01-26 09:04 | XMS_ITS | Clinical Summary ---
Author Organization [facility] Address [address] [place] [address] Phone Care Team Providers Care Demolitionist Name Role Phone Lyn Ness MD Primary Care Provider [phone] Allergies Active Allergy Reactions Criticality Noted Date [...] Continue atorvastatin Chronic kidney disease, stage 3 ([facility] V24, [facility] S/[facility] V28) 10/02/2024 Rapid atrial fibrillation ([facility] V24, [facility] V28) 09/28/2024 Volume overload 09/28/2024 Surgical History Surgery Date Site/Laterality Comments KNEE SURGERY PROCEDURE: HISTORICAL KNEE SURGERY; COMMENT: lef in 1979 r in 1989 torn cartiladge Medical History Medical History Date Comments LFT elevation 06/21/2014 DX:LFT elevation Gout 06/21/2014 DX:Gout Mitral regurgitation 06/04/2014 DX:Mitral r egurgitation CKD (chronic kidney disease) stage 3, GFR 30-59 ml/min ([facility] V24, [facility] V28) 11/03/2018 DX:CKD (chronic kidney disea se) stage 3, GFR 30-59 ml/min ([facility]) Microalbuminuria 11/03/2018 DX:Microalbumin uria Type 2 diabetes mellitus wit h renal manifestations ([facility] V24, [facility] V28) 02/01/2015 DX:Type 2 diabetes mellitus with renal manifestations ([facility]) Alcohol abuse 10/01/2017 DX:Alcohol abuse Diastolic dysfunction with c hronic heart failure ([facility] V24, [facility] V28) 06/19/2016 DX:Diastolic dysfunction wit h chronic heart failure (HCC) Essential hypertension 06/24/2018 DX:Essent ial hypertension Hyperlipidemia 10/02/2014 DX:Hyperlipidemi a Osteoarthritis of knees, bilateral 06/04/2014 DX:Osteoarthritis of knees, bilateral DM (diabetes mellitus), type 2 with renal complications ([facility] V24, [facility] V28) 02/01/2015 DX:DM (diabetes mellitus), t ype 2 with renal complications (HCC) GI bleed DX:GI bleed Symptomatic anemia DX:Symptomati c anemia Alcoholic cirrhosis of liver ([facility] V24, [facility] V28) DX:Alcoholic cirrhosis of li jaci (HCC) Portal hypertensive gastropa thy ([facility] V24, [facility] V28) 04/09/2022 DX:Portal hypertensive bg ropathy (HCC) COVID-19 virus infection DX:COVI D-19 virus infection Stage III chronic kidney dis ease ([facility] V24, [facility] V28) DX:Stage III chronic kidney disease (HCC) Weakness DX:Weakness Elevated LFTs DX:Elevated LFTs MRSA (methicillin resistant Staphylococcus aureus) DX:MRSA (methicillin resista nt Staphylococcus aureus); COMMENT: cellulitis Anemia Chronic kidney disease Hypertension Acute hypoxemic respiratory failure ([facility] V24, [facility] V28) Orthopnea Cirrhosis ([facility] V24, [facility] V28) Family History Medical History Relation Name Comments Heart attack Father dx with CAD in his 50s, Diabetes, Hypertension Other cancer Sister ? lymphoma Relation Name Status Comments Father (Age 62) of an [place] Mother (Age 80s) unknown c auses Sister [...] Health Maintenance Due Date Last Done Comments Colorectal Cancer Screening: Colonoscopy 1956 Diabetes: Annual GFR (Glomer ular Filtration Rate) 1956 COVID-19 Vaccine (#1) 1961 Diabetes: Annual Foot Exam 1966 Diabetes: Annual Retina Eye Exam 1966 Hepatitis A Vaccines (1 of 2 - Risk 2-dose series) 11/22/1975 Pneumococcal Vaccine: 50+ Ye ars (1 of 2 - PCV) 11/22/1975 Zoster Vaccines (1 of 2) 11/22/1975 RSV Immunization Adult Patie nts (1 - Risk 50-74 years 1-dose series) 2006 Hepatitis B Vaccines (1 of 3 - Risk 3-dose series) 2016 Abdominal Aortic Aneurysm (A AA) Screen 03/15/2022 Cholesterol Screening (Lipid Panel) 03/15/2022 Falls Risk Assessment 03/15/2022 Hepatitis C [...] Documents on File Type Date Recorded Patient Tag Marker Expl anation Health Care Decision (hx) 07/13/2020 AD WOODS DIRECTIVE Health Care Decision (hx) 07/13/2020 AD WOODS DIRECTIVE Health Care Decision (hx) 07/13/2020 AD WOODS DIRECTIVE Health Care Decision (hx) 10/22/2015 AD WOODS DIRECTIVE Health Care Decision (hx) 10/22/2015 AD WOODS DIRECTIVE Health Care Decision (hx) 10/22/2015 AD WOODS DIRECTIVE Health Care Decision (hx) 10/22/2015 AD WOODS DIRECTIVE Care Teams Demolitionist Relationship Specialty Start Date End Date Lyn Ness MD [address] [place] [address] PCP - General Internal Medicine 09/07/24
--- OUTSIDE RECORDS SUMMARY | 2025-01-26 09:04 | XMS_ITS | Clinical Summary ---
Author Organization [facility] Address [address] [place] [address] Care Team Providers Care Belt Loop Machine Operator Name Role Phone Martin Fitch MD Primary Care Provider [phone] Allergies Active Allergy Reactions Criticality Noted Date [...] age to complete this topic Care Teams Belt Loop Machine Operator Relationship Specialty Start Date End Date Martin Fitch MD PCP - General Internal Medicine 08/30/20
--- OUTSIDE RECORDS SUMMARY | 2025-01-26 09:04 | XMS_ITS | Patient Health Record ---
[facility] Address [address] [place] [address] Care Team Providers Care Preschool Adviser Name Role Phone Little RANDOLPH, Radha Blackburn Primary Care Provider James Valladares Unavailable [phone] Allergies No Known Allergies Reason For Referral [...] Status Risk Notes Problem Acquired hallux valgus (37454882) Hallux valgus (acquired), left foot (M20.12) Active confirmed Problem Acquired hallux rigidus (5669102) Hallux rigidus, right foot (M20.21) Active confirmed Plan Of Treatment Pending Test Test Name Order Date X ray : Foot, left 3V 08/21/2020 X ray : Foot, right 3V 08/21/2020 Insurance Providers Payer Name Payer Address Payer Phone Subscriber Number Group Number Insured Name Patient Relationship to Insured Coverage Start Date Coverage End Date [facility] [id number] [place] [phone] [id number] Trev Miranda Self - patient is the insured Medical (General) History Medical History History ICD Code Arthritis Diabetic Gout High blood pressure Numbness Surgical History Surgery Date(Month/Year) knee surgery 09/16/79 knee surgery 09/15/89
[2025-01-26 10:28] LABS: MANUAL DIFF FLAG NO
[2025-01-26 10:36] LABS: Hematocrit 33.5 % (42.0-52.0); Hemoglobin 9.8 g/dl (14.0-18.0); Imm Gran Abs Auto 0.02 X10*3/uL (0.00-0.03); Imm Gran Pct Auto 0.4 % (0.0-0.4); Lymphocytes Absolute Auto 1.0 X10*3/uL (1.2-4.9); Mean Corpuscular HGB Conc 29.3 g/dl (31.0-36.0); Mean Corpuscular Hemoglobin 23.0 pg (27.0-33.0); Mean Corpuscular Volume 78.5 fL (80.0-98.0); NRBC Abs Auto 0.000 X10*3/uL (0.0-0.012); NRBC Pct Auto 0.0 /100WBC (0.0-0.2); Platelet Count 141 X10*3/uL (160-400); Red Blood Count 4.27 X10*6/uL (4.60-5.80); Reticulocytes Absolute 0.068 X10*6/uL (0.026-0.095); White Blood Count 4.7 X10*3/uL (4.8-10.8)
[2025-01-26 12:51] LABS: Microalbum/Creatinine Ratio Ur 1170.7 ug/mg cr (<30)
[2025-01-26 13:12] LABS: Anion Gap 13 (12-20)
[2025-01-26 13:17] LABS: Alanine Aminotransferase 26 U/L (0-40); Albumin Level 4.2 g/dL (3.5-5.0); Alkaline Phosphatase 124 U/L (39-117); Aspartate Amino Transferase 28 U/L (5-37); Blood Urea Nitrogen 20 mg/dL (9-16); Calcium 9.3 mg/dL (8.4-10.2); Carbon Dioxide 25 mmol/L (22-29); Chloride 109 mmol/L (96-108); Cholesterol 122 mg/dL (<200); Estimated Glomerular Filt Rate 44; HDL Cholesterol 24 mg/dL (>40); Iron 38 mcg/dL (45-160); Percent Iron Saturation 12 % (15-50); Potassium 4.9 mmol/L (3.3-5.1); Sodium 142 mmol/L (135-145); Total Iron Binding Capacity 309 mcg/dL (228-428); Total Protein 7.5 g/dL (6.5-8.0); Triglycerides 145 mg/dL (<150); Unsaturated Iron Binding 271 ug/dL
[2025-01-26 14:11] LABS: Folate 11.7 ng/mL (> or = 4.0); Vitamin B12 714 pg/mL (200-900)
== END 2025-01-26 08:41 | disposition home or self-care (01) ==
LOC: HO.HMGCLDS 08:40
PROVIDERS: PCP Internal Medicine; Visit Provider Internal Medicine
DX: E11.9 Type 2 diabetes mellitus without complications (principal); I48.91 Unspecified atrial fibrillation; I10 Essential (primary) hypertension; E78.5 Hyperlipidemia, unspecified; Z13.21 Encounter for screening for nutritional disorder
CPT/HCPCS: 36415; 80053; 80061; 82043; 82306; 82570; 82607; 82746; 83036; 83540; 84425; 85025; 85045

== ENCOUNTER 2025-01-29 10:54 | Outpatient (AMB) | payer MEDICARE, SELFPAY ==
[2025-01-29 10:56] VITALS: BP 124/72; PULSE 89; RESP 18; TEMP 36.7; O2SAT 99; BMI 28.7
--- NOTE | 2025-01-29 10:56 | MHC.PC.OV ---
Vital Signs 01/29/25 10:56 Height 5 ft 11 in Weight 206 lb BMI 28.7 BP 124/72 Blood Pressure Location Lt brachial Position Sitting Respiration 18 Pulse 89 Pulse Source Pulse Oximeter Temp 98.0 F Temp Source Oral Pulse Oximetry (%) 99 Oxygen Delivery Method Room Air Intake Visit Reasons: 3 weeks f/up Intake Note: Pt is here today for 3 weeks follow up visit. Allergies bisoprolol Adverse Reaction (Intermediate, Verified 01/29/25 10:57) Diarrhea Medication List - Last Reconciled 01/29/25 by Lyn Ness MD ammonium lactate 12% 1 appl topical DAILY PRN apixaban (Eliquis) 5 mg PO BID blood sugar diagnostic (Accu-Chek Guide test strips) Test blood sugar 3 times per day blood-glucose meter (Accu-Chek Guide Me Glucose Meter) As directed blood-glucose sensor ([employer] G7 Sensor device) As directed folic acid 1 mg PO DAILY furosemide 20 mg PO BID insulin glargine (Lantus Solostar U-100 Insulin) 55 units subcut QPM insulin lispro (Humalog KwikPen (U-100) Insulin) 1 sliding scale dose subcut USEASDIRECTD lancets (Accu-Chek Softclix Lancets) Test blood sugar 3 times per day metoprolol succinate ER 25 mg (1/2 x 50 mg) PO DAILY pantoprazole 40 mg PO BID pen needle, diabetic (Pen Needle) Use to inject insulin up to 4 times per day simvastatin 10 mg PO BEDTIME spironolactone 25 mg PO DAILY Tobacco use date assessed: 09/11/24 Fall risk assessment: No Falls in past year Last assessed Fall Risk: 01/29/25 Dental Screening Dental Screen Date: 09/11/24 HPI 3 weeks f/up HPI Details Patient presents for the follow-up of insulin-dependent diabetes. He reports improving overall glycemic control with a blood glucose readings before meals between 140-160. He has been taking 55 units of Lantus and Humalog according to sliding scale. Patient has been taking furosemide and spironolactone for lower extremity edema and liver cirrhosis. He follows up with GI. For paroxysmal AFib he has been taking 25 mg of metoprolol for rate control and anticoagulation on Eliquis. [facility] Medical History Anemia DM type 2 (diabetes mellitus, type 2) HTN (hypertension) CKD (chronic kidney disease) stage 3, GFR 30-59 ml/min Alcoholic cirrhosis of liver without ascites Atrial fibrillation with RVR Surgical History History of surgery on arm History of surgery Family History Sister Lymphoma Father Heart attack, Onset Age: 62 Mother DM2 (diabetes mellitus, type 2) Social History Household Members Other:: , 5 children, 11 greatchildren, retired Housing: House Patient Tobacco Use Status: Former Tobacco user e-Cigarette/Vaping Use: Never Used Second Hand Smoke Exposure: No service: Yes Current occupational status: retired Cognitive needs: No Hearing needs: No Vision needs: No Questionnaire PHQ-9 Over the last 2 weeks, how often have you been bothered by any of the following problems? 1. Little interest or pleasure in doing things: not at all 2. Feeling down, depressed, or hopeless: not at all 3. Trouble falling or staying asleep, or sleeping too much: not at all 4. Feeling tired or having little energy: not at all 5. Poor appetite or overeating: not at all 6. Feeling bad about yourself - or that you are a failure or have let yourself or your family down: not at all 7. Trouble concentrating on things, such as reading the newspaper or watching television: not at all 8. Moving or speaking so slowly that other people could have noticed. Or the opposite - being so fidgety or restless that you have been moving around a lot more than usual: not at all 9. Thoughts that you would be better off or of hurting yourself in some way: not at all Total score: 0 Depression Screening Interpretation: Negative Depression Screening Done: Yes Source: Developed by Drs. Shukri Burnett, Nayely Sadler, Nikhil Vivas and colleagues, with an educational luis from [employer]. Thrive Questionnaire Date Thrive assessed: 05/19/24 I am a: Patient What is your living situation today?: I choose not to answer this question Within the past 12 months, did the food you bought not last and you didn't have the money to get more?: I choose not to answer this question Within the past 12 months, did you worry whether your food would run out before you got money to buy more?: I choose not to answer this question Do you have trouble paying for medicines?: I choose not to answer this question Do you have trouble getting transportation to medical appointments?: I choose not to answer this question Do you have trouble paying your heating and electricity bill?: I choose not to answer this question Do you have trouble taking care of your child, family member or friend?: I choose not to answer this question Do you have trouble with day-to-day activities such as bathing, preparing meals, shopping, managing finances, etc.?: I choose not to answer this question Are you currently unemployed and looking for a job?: I choose not to answer this question Are you interested in more education?: I choose not to answer this question Please select the resources that you would like help with: None Currently or been in a relationship where the following occur: I choose not to answer THRIVE Score: 0 JEREMIAH-7 AMB Questionnaire JEREMIAH-7 Date JEREMIAH - 7 assessed: 09/11/24 Feeling nervous, anxious, or on edge: 0 = Not at all Not being able to stop or control worryin = Not at all Worrying too much about different things: 0 = Not at all Trouble relaxin = Not at all Being so restless that it is hard to sit still: 0 = Not at all Becoming easily annoyed or irritable: 0 = Not at all Feeling afraid as if something awful might happen: 0 = Not at all Total JEREMIAH-7 score (0-4 normal; 5-9 mild; 10-14 moderate; 15-21 severe): 0 Source: Developed by Drs. Shukri Burnett, Nayely Sadler, Nikhil Vivas and colleagues, with an educational luis from [employer]. Review of Systems Const All systems reviewed & are unremarkable except as noted in HPI and below Eyes Reports no additional complaints ENT Reports no additional complaints Card Reports no additional complaints Resp Reports no additional complaints GI Reports no additional complaints Reports no additional complaints Physical exam (Primary Care) Vital Signs: Last Vital Signs Temp 98.0 F 01/29/25 10:56 Pulse 89 01/29/25 10:56 Resp 18 01/29/25 10:56 BP 124/72 01/29/25 10:56 Pulse Ox 99 01/29/25 10:56 Oxygen Delivery Method Room Air 01/29/25 10:56 BMI result Body Mass Index 28.7 Tobacco/Smoking Status: Tobacco use Status Tobacco use date assessed 09/11/24 01/29/25 11:02 Patient Tobacco Use Status Former Tobacco user 01/29/25 11:02 e-Cigarette/Vaping Use Never Used 01/29/25 11:02 PHQ-9: PHQ-9 Score PHQ-9: Total score 0 01/29/25 11:02 Depression Screening Interpretation: Negative Thrive Assessment: Date of Thrive Assessment Date Thrive assessed 05/19/24 01/29/25 11:02 Currently or been in a relationship where the following occur: I choose not to answer Const General: no acute distress HENMT Head: Yes normal to inspection Neck Neck: Yes supple Resp Effort & Inspection: normal respiratory effort Auscultation: clear to auscultation bilaterally Cardio Rhythm: regular rhythm Heart sounds: S1 normal heart sound present and S2 normal heart sound present GI Inspection: Yes normal to inspection Palpation (GI): Soft to palpation Percussion: Yes normal to percussion Auscultation: normal bowel sounds Extrem General: Yes no clubbing, cyanosis or edema Coding Level of Care Code Est Pt Level 4 (76937) Diagnoses DM type 2 (diabetes mellitus, type 2) E11.9 CKD stage 3 secondary to diabetes E11.22; N18.30 Atrial fibrillation with RVR I48.91 Hyperlipidemia E78.5 Alcoholic cirrhosis of liver without ascites K70.30 Assessment & Plan Assessment & Plan (1) DM type 2 (diabetes mellitus, type 2): Comment: poorly controlled, on Lantus and Humalog with a sliding scale coverage Code(s): E11.9 - Type 2 diabetes mellitus without complications Category: Medical Plan: A1c was 9.0. ADA diet increase physical activity discussed with the patient. He was advised to continue monitoring his blood glucose. He refused a continues glucose monitoring. Return in 6 weeks (2) CKD stage 3 secondary to diabetes: Code(s): E11.22 - Type 2 diabetes mellitus with diabetic chronic kidney disease; N18.30 - Chronic kidney disease, stage 3 unspecified Category: Medical Plan: Avoid nephrotoxins monitor renal function (3) Atrial fibrillation with RVR: Comment: Rate controlled on metoprolol and anticoagulated on Eliquis Code(s): I48.91 - Unspecified atrial fibrillation Category: Medical Plan: Increase metoprolol to 50 mg a day and continue Eliquis for anticoagulation follow-up with Cardiology (4) Hyperlipidemia: Code(s): E78.5 - Hyperlipidemia, unspecified Category: Medical Plan: Continue statin (5) Alcoholic cirrhosis of liver without ascites: Comment: dxd 10/2021 at [facility], declined GI follow-up, stopped drinking 2021, EGD negative August 2024 at [facility] on spironolactone Code(s): K70.30 - Alcoholic cirrhosis of liver without ascites Category: Medical Plan: Follow-up with GI, Orders: Orders Comprehensive [place]. Panel Fast 1 Month E11.22 - Type 2 diabetes mellitus with diabetic chronic kidney disease, E11.9 - Type 2 diabetes mellitus without complications, I10 - Essential (primary) hypertension, N18.30 - Chronic kidney disease, stage 3 unspecified IRON PROFILE 1 Month E11.22 - Type 2 diabetes mellitus with diabetic chronic kidney disease, E11.9 - Type 2 diabetes mellitus without complications, I10 - Essential (primary) hypertension, N18.30 - Chronic kidney disease, stage 3 unspecified Hemoglobin A1c 1 Month E11.22 - Type 2 diabetes mellitus with diabetic chronic kidney disease, E11.9 - Type 2 diabetes mellitus without complications, I10 - Essential (primary) hypertension, N18.30 - Chronic kidney disease, stage 3 unspecified Complete Blood Count Auto Diff 1 Month E11.22 - Type 2 diabetes mellitus with diabetic chronic kidney disease, E11.9 - Type 2 diabetes mellitus without complications, I10 - Essential (primary) hypertension, N18.30 - Chronic kidney disease, stage 3 unspecified Medications: Changed From metoprolol succinate ER 25 mg (1/2 x 50 mg) PO DAILY 90 tabs 1RF To metoprolol succinate ER 50 mg PO DAILY 90 tabs 1RF
== END 2025-01-29 11:27 | disposition home or self-care (01) ==
LOC: HO.HMCC 10:55
PROVIDERS: PCP Internal Medicine; Visit Provider Internal Medicine
DX: E11.22 Type 2 diabetes mellitus with diabetic chronic kidney disease (principal); N18.30 Chronic kidney disease, stage 3 unspecified; I48.91 Unspecified atrial fibrillation; E78.5 Hyperlipidemia, unspecified; K70.30 Alcoholic cirrhosis of liver without ascites

== ENCOUNTER → 2025-01-29 10:54 | Outpatient (BNVA) | payer MEDICARE, SELFPAY | PROVIDERS: PCP Internal Medicine; Visit Provider Internal Medicine | DX: E11.22 Type 2 diabetes mellitus with diabetic chronic kidney disease (principal); N18.30 Chronic kidney disease, stage 3 unspecified; I48.91 Unspecified atrial fibrillation; E78.5 Hyperlipidemia, unspecified; K70.30 Alcoholic cirrhosis of liver without ascites; Z79.01 Long term (current) use of anticoagulants; Z79.4 Long term (current) use of insulin; Z79.899 Other long term (current) drug therapy; Z13.31 Encounter for screening for depression | CPT/HCPCS: 96127; 99212 ==